=== PATIENT | male | born 1960 | race Caucasian/White ===

== ENCOUNTER 2017-12-27 10:09 | Inpatient (IN) | payer OTHER ==
[~2017-12-27] VITALS: Ht 172.7 cm; Wt 138.5 kg
[~2017-12-27 10:09] MED LIST: ASPIRIN CHILDRE81 MG PO; ASPIRIN EC81 M1 PO; ATORVASTATIN CA40 MG PO; AUGMENTIN 875-1 EACH PO; AUGMENTIN 875875 MG PO; AVAPRO300 M1 PO; GLIPIZIDE10 MG PO; GLIPIZIDE5 M2 PO; HYDROCHLOROTH12.5 M2 PO; HYDRODIURIL 112.5 M1 PO; IRBESARTAN300 MG PO; LEVEMIR FL100 UNIT/1 SC; LEVEMIR FLEX100 U/M1 SC; LEVEMIR100 UNIT/1 SC; LEVOTHYROXINE0.15 M1 PO; LIPITOR40 M1 PO; METFORMIN ER500 MG PO; Mucinex PO; PERCOCET 5-3251 EACH PO; SENOKOT8.6 M2 PO; SYNTHROID150 MCG PO; TYLENOL EXTRA500 M2 PO
--- NOTE | 2017-12-27 10:46 | ED GENERAL ADULT ---
History of Present Illness General Chief Complaint: General Adult Stated Complaint: NV;ABD PAIN Source: patient Exam Limitations: no limitations Vital Signs & Intake/Output Vital Signs & Intake/Output Vital Signs Date Time Temp Pulse Resp B/P B/P Pulse O2 O2 Flow FiO2 Mean Ox Delivery Rate 12/27 1816 98.8 79 18 113/59 98 Room Air 12/27 1724 76 18 90/52 98 Room Air 12/27 1633 99.5 82 18 82/52 97 Room Air Room Air 12/27 1315 98.6 83 18 129/58 98 Room Air 12/27 1044 98.4 78 18 196/88 99 Room Air Allergies Coded Allergies: NO KNOWN ALLERGIES (NONE 12/27/17) Reconcile Medications Aspirin (Ecotrin*) 81 MG TABLET.DR 1 TAB PO DAILY HEART HEALTH (Reported) Atorvastatin Calcium (Lipitor) 40 MG TABLET 1 TAB PO DAILY CHOLESTEROL ( Reported) Glipizide 5 MG TABLET 1 TAB PO BID DIABETES (Reported) Hydrochlorothiazide 12.5 MG TABLET 1 TAB PO DAILY BP (Reported) Insulin Detemir (Levemir) 100 UNIT/ML VIAL 60 UNITS SC DAILY DIABETES ( Reported) Irbesartan (Avapro) 300 MG TABLET 1 TAB PO DAILY BP (Reported) Levothyroxine Sodium (Synthroid) 150 MCG TABLET 1 TAB PO DAILY THYROID ( Reported) Triage Note: C/O UPPER AND MID ABDOMINAL PAIN WITH NAUSEA AND VOMITING SINCE YESTERDAY. DENIES DIARRHEA. Triage Nurses Notes Reviewed? yes Onset: Abrupt Duration: day(s): Timing: recent history HPI: 12/27/17 2:46 PM 67-year-old male presents to the emergency department complaining of epigastric and bilateral upper quadrant abdominal pain. He says that he has a past medical history of hypertension, hyperlipidemia, diabetes, hypothyroidism, status post tonsillectomy. He says the pain started last night. He's had multiple episodes of vomiting. In ED he received IV fluids, IV Zofran, IV morphine for pain is exam revealed epigastric abdominal tenderness. Past History Travel History Traveled to [place] past 21 day No Medical History Any Pertinent Medical History? 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 No Review of Systems Review of Systems Constitutional: Denies: fever. EENTM: Reports: no symptoms. Respiratory: Denies: short of breath. Cardiovascular: Denies: chest pain. GI: Reports: abdominal pain, vomiting. Genitourinary: Reports: no symptoms. Musculoskeletal: Reports: see HPI. Skin: Reports: see HPI. Neurological/Psychological: Reports: no symptoms. Hematologic/Endocrine: Reports: no symptoms. Immunologic/Allergic: Reports: no symptoms. Physical Exam Physical Exam General Appearance: alert, awake, anxious, severe distress Head: atraumatic, normal appearance Eyes: Bilateral: normal appearance, PERRL, EOMI. Ears, Nose, Throat: normal pharynx, normal ENT inspection Neck: normal inspection, supple, full range of motion Respiratory: normal breath sounds, chest non-tender, no respiratory distress Cardiovascular: regular rate/rhythm Peripheral Pulses: 3+ radial (R), 3+ radial (L) Gastrointestinal: soft, tenderness, EPIGASTRIC Back: decreased range of motion Extremities: pedal edema Neurologic/Psych: no motor/sensory deficits, awake, alert, oriented x 3 Skin: diaphoresis Core Measures ACS in differential dx? Yes CVA/TIA Diagnosis: No Sepsis Present: No Sepsis Focused Exam Completed? No Progress Differential Diagnoses I considered the following diagnoses in my evaluation of the patient: Plan of Care: Orders Procedure Date/time Status Nothing by Mouth 12/28 B Active VRE ACTIVE SURVIELLANCE 12/27 181 Active ACTIVE SURVEILLANCE NARES 12/27 181 Active Lab Add-on Test 12/27 175 Active BLOOD CULTURE 12/27 175 Active PARTIAL THROMBOPLASTIN TIME 12/27 175 Active PROTHROMBIN TIME 12/27 175 Active Pathway - chart 12/27 1744 Active House Staff 12/27 1744 Active Patient Data 12/27 1744 Active Code Status 12/27 174 Active Patient Data 12/27 1526 Active GLUCOSE NPO OR CONTINUOUS TF 12/27 1450 Active ED Holding Orders 12/27 1450 Active Admit to inpatient 12/27 1450 Active Vital Signs 12/27 1450 Active Code Status 12/27 1450 Complete Add-on Test (ER Only) 12/27 1448 Active Add-on Test (ER Only) 12/27 1108 Active EKG 12/27 1108 Active Intake & Output 12/27 1059 Active TROPONIN LEVEL 12/27 1052 Active LIPID PANEL 12/27 1052 Active LIPASE 12/27 1052 Active HEPATITIS PANEL 12/27 1052 Active AMYLASE 12/27 1052 Active CULTURE,URINE 12/27 1047 Active URINALYSIS 12/27 1047 Active COMPREHENSIVE METABOLIC PANEL 12/27 1047 Active CBC WITHOUT DIFFERENTIAL 12/27 1047 Complete VTE Mechanical Prophylaxis 12/27 UNK Active Vital Signs 12/27 UNK Active MISTAKE 12/27 UNK Active Intake & Output 12/27 UNK Active Hemoccult 12/27 UNK Active Current Medications Sig/Callie Start time Last Medication Dose Stop Time Status Admin Non-Formulary 0 SEE ADMIN CRITERIA 12/27 1800 UNVr Medication (NON FORMULARY) Hydromorphone HCl 0.4 MG Q4P PRN 12/27 1745 AC (Dilaudid) Lactated Ringer's 1,000 ML .Q4H 12/27 1700 AC 12/27 (Lactated Ringers) 1659 Non-Formulary 0 SEE ADMIN CRITERIA 12/27 1615 CAN Medication (NON FORMULARY) Laboratory Tests 12/27/17 1052: Anion Gap 13, Estimated GFR 39 L, BUN/Creatinine Ratio 22.2, Glucose 230 H, Calcium 9.1, Total Bilirubin 4.2 H, AST 136 H, ALT 215 H, Alkaline Phosphatase 334 H, Troponin I < 0.01, Total Protein 7.3, Albumin 3.8, Globulin 3.5, Albumin/Globulin Ratio 1.1, Triglycerides 103, Cholesterol 118, LDL Cholesterol, Calc 68, HDL Cholesterol 30 L, Cholesterol/HDL Ratio 4, Amylase 2093 H, Lipase > 35812 H, CBC w Diff NO MAN DIFF REQ, RBC 5.08, MCV 82.9, MCH 28.2, MCHC 34.1, RDW 14.5, MPV 8.0, Gran % 87.8 H, Lymphocytes % 7.3 L, Monocytes % 4.8, Eosinophils % 0, Basophils % 0.1, Absolute Granulocytes 8.1 H, Absolute Lymphocytes 0.7 L, Absolute Monocytes 0.4, Absolute Eosinophils 0, Absolute Basophils 0, Hepatitis A IgM Ab Pending, Hep Bs Antigen Pending, Hep B Core IgM Ab Conf Pending, Hepatitis C Antibody Pending Microbiology 12/27 181 UPPER RESP: Surveillance Culture - ORD 12/27 1813 GI: Surveillance Culture - ORD 12/27 175 BLOOD: Blood Culture - COLB 12/27 175 BLOOD: Blood Culture - COLB 12/27 1047 URINE ROUT: Urine Culture - ORD Initial ED EKG: nonspecific ST T wave chg, sinus tachycardia Departure Departure Disposition: STILL A PATIENT Condition: Stable Clinical Impression Primary Impression: Pancreatitis Secondary Impressions: CHARLENE (acute kidney injury) Referrals: Didier MUÑOZ,Ernie Ch (PCP/Family) Departure Forms: Customer Survey General Discharge Information Admission Note Spoke With: Justine Devine MD Documentation of Exam: Documentation of any treatments & extenuating circumstances including Concerns Regarding Discharge (functional status, medication knowledge or non-compliance, living conditions, etc.) that warrant an admission rather than observation: [The patient needs admission for IV fluids, IV antiemetics, IV narcotics for pain control, consider endocrinology consultation, consider GI consultation, GI consult] PATIENT: MONIQUE LAWRENCE JR PRESENT AGE: 57 PATIENT ACCOUNT NO: [id number] : 62 LOCATION: [facility] ORDERING PHYSICIAN: Emmanuel Whitfield DO SERVICE DATE: 12/27/17 EXAM TYPE: CAT - CT ABD & PELVIS W/O IV CONTRAS EXAMINATION: CT ABDOMEN AND PELVIS WITHOUT CONTRAST CLINICAL INFORMATION: Abdominal pain. Rule out ureterolithiasis. COMPARISON: Ultrasound dated 11/10/2015 TECHNIQUE: Multidetector volumetric imaging was performed from the superior aspect of the liver through the pubic symphysis. Sagittal and coronal reformatted images were obtained on the technologist's workstation. DLP: 1547 mGy-cm FINDINGS: LUNG BASES: Dependent atelectasis is present in both lungs. Trace pericardial fluid. Heart is normal in size. LIVER, GALLBLADDER, AND BILIARY TREE: The liver is normal in size, shape, and attenuation. No focal hepatic lesion or biliary ductal dilatation is present. Dependent gallstones in the gallbladder measure 1 and. The gallbladder is borderline hydropic (4.5 cm). Bladder wall is normal in thickness. No surrounding fat stranding. Common bile duct measures 1 cm in diameter, mildly dilated. PANCREAS: Mild fatty replacement. No inflammatory changes or ductal dilatation. No focal lesions. SPLEEN: Unremarkable. ADRENAL GLANDS: Unremarkable. KIDNEYS AND URETERS: There is bilateral perinephric stranding. There is a hypoattenuating 3.3 cm lesion at the lower pole left kidney which has a density of 11 Hounsfield units, most compatible with a simple cyst. This is incompletely evaluated without contrast. No additional renal lesions are identified. Kidneys are normal in size and cortical thickness. No nephrolithiasis or ureterolithiasis. No hydronephrosis or hydroureter. BLADDER: Full and unremarkable. GASTROINTESTINAL TRACT: Stomach, small bowel, and colon are normal in caliber. No bowel wall thickening or surrounding inflammatory changes. Appendix is normal. No intraperitoneal free fluid or free air. ABDOMINAL WALL: Small fat-containing umbilical hernia. No bowel involvement. LYMPH NODES: There is a borderline enlarged 1.1 cm portacaval node (image 37/115 of series 2). A few smaller, borderline enlarged periportal nodules are identified in this region. Other retroperitoneal lymph nodes below the pelvic lymph nodes are normal in size. VASCULAR: Calcific atherosclerosis is present in the abdominal aorta and iliac arteries. PELVIC VISCERA: Prostate gland is unremarkable OSSEOUS STRUCTURES: A hemangioma is present within the T12 vertebral body. There is mild degenerative disc disease in the thoracic spine. Mild degenerative arthritis is present in the SI joints and hip joints. No acute fractures are identified. IMPRESSION: 1. Cholelithiasis. No CT findings of acute cholecystitis. 2. Bilateral perinephric stranding. No nephrolithiasis, ureterolithiasis, or other findings of obstructive uropathy. 3. A few borderline enlarged periportal lymph nodes. 4. A 3.3 cm water density cystic lesion at the lower pole left kidney. This is incompletely evaluated without intravenous contrast material. It was not seen on prior ultrasound. Consider follow-up renal protocol CT with and without contrast or MRI with and without contrast for further evaluation. 5. Fat-containing umbilical hernia. DICTATED BY: Olegario Kennedy MD DATE/TIME DICTATED:12/27/171513 SCRIPT GIRL:RENNY DATE/TIME TRANSCRIBED:12/27/171513 CONFIDENTIAL, DO NOT COPY WITHOUT APPROPRIATE AUTHORIZATION. <Electronically signed in Other Vendor System> SIGNED BY: Brent MUÑOZ,Olegario 12/27/17 1532 Critical Care Note Critical Care Note Critical Care Time: 30-74 min
[2017-12-27 11:04] LABS: ABSOLUTE BASOPHIL COUNT 0 /CUMM (0.0-0.2); ABSOLUTE EOSINOPHIL COUNT 0 /CUMM (0.0-0.7); ABSOLUTE GRANULOCYTE CT 8.1 /CUMM (1.4-6.5); ABSOLUTE LYMPH COUNT 0.7 /CUMM (1.2-3.4); ABSOLUTE MONOCYTE COUNT 0.4 /CUMM (0.10-0.60); BASOPHIL % 0.1 % (0.0-2.0); EOSINOPHIL % 0 % (0-5); HEMATOCRIT 42.1 % (42-52); MEAN CORPUSCULAR HGB 28.2 PG (27.0-31.0); MEAN CORPUSCULAR HGB CONC 34.1 G/DL (33.0-37.0); MEAN CORPUSCULAR VOLUME 82.9 FL (80.0-94.0); PLATELET COUNT 241 /CUMM (130-400); RBC DISTRIBUTION WIDTH 14.5 % (11.5-14.5); RED BLOOD CELL CT 5.08 /CUMM (4.70-6.10); WHITE BLOOD CELL COUNT 9.3 /CUMM (4.8-10.8)
[2017-12-27 11:27] LABS: GRANULOCYTE % 87.8 % (42.2-75.2)
[2017-12-27] MEDS ORDERED: LEVEMIR100 UNIT/1 SC (13:14)
--- NOTE | 2017-12-27 15:32 | CT SCAN REPORT ---
EXAMINATION: CT ABDOMEN AND PELVIS WITHOUT CONTRAST CLINICAL INFORMATION: Abdominal pain. Rule out ureterolithiasis. COMPARISON: Ultrasound dated 11/10/2015 TECHNIQUE: Multidetector volumetric imaging was performed from the superior aspect of the liver through the pubic symphysis. Sagittal and coronal reformatted images were obtained on the technologist's workstation. DLP: 1547 mGy-cm FINDINGS: LUNG BASES: Dependent atelectasis is present in both lungs. Trace pericardial fluid. Heart is normal in size. LIVER, GALLBLADDER, AND BILIARY TREE: The liver is normal in size, shape, and attenuation. No focal hepatic lesion or biliary ductal dilatation is present. Dependent gallstones in the gallbladder measure 1 and. The gallbladder is borderline hydropic (4.5 cm). Bladder wall is normal in thickness. No surrounding fat stranding. Common bile duct measures 1 cm in diameter, mildly dilated. PANCREAS: Mild fatty replacement. No inflammatory changes or ductal dilatation. No focal lesions. SPLEEN: Unremarkable. ADRENAL GLANDS: Unremarkable. KIDNEYS AND URETERS: There is bilateral perinephric stranding. There is a hypoattenuating 3.3 cm lesion at the lower pole left kidney which has a density of 11 Hounsfield units, most compatible with a simple cyst. This is incompletely evaluated without contrast. No additional renal lesions are identified. Kidneys are normal in size and cortical thickness. No nephrolithiasis or ureterolithiasis. No hydronephrosis or hydroureter. BLADDER: Full and unremarkable. GASTROINTESTINAL TRACT: Stomach, small bowel, and colon are normal in caliber. No bowel wall thickening or surrounding inflammatory changes. Appendix is normal. No intraperitoneal free fluid or free air. ABDOMINAL WALL: Small fat-containing umbilical hernia. No bowel involvement. LYMPH NODES: There is a borderline enlarged 1.1 cm portacaval node (image 37/115 of series 2). A few smaller, borderline enlarged periportal nodules are identified in this region. Other retroperitoneal lymph nodes below the pelvic lymph nodes are normal in size. VASCULAR: Calcific atherosclerosis is present in the abdominal aorta and iliac arteries. PELVIC VISCERA: Prostate gland is unremarkable OSSEOUS STRUCTURES: A hemangioma is present within the T12 vertebral body. There is mild degenerative disc disease in the thoracic spine. Mild degenerative arthritis is present in the SI joints and hip joints. No acute fractures are identified. IMPRESSION: 1. Cholelithiasis. No CT findings of acute cholecystitis. 2. Bilateral perinephric stranding. No nephrolithiasis, ureterolithiasis, or other findings of obstructive uropathy. 3. A few borderline enlarged periportal lymph nodes. 4. A 3.3 cm water density cystic lesion at the lower pole left kidney. This is incompletely evaluated without intravenous contrast material. It was not seen on prior ultrasound. Consider follow-up renal protocol CT with and without contrast or MRI with and without contrast for further evaluation. 5. Fat-containing umbilical hernia.
--- NOTE | 2017-12-27 15:48 | History & Physical ---
Delphine Johnson MD 12/27/17 1548: General Information and HPI MD Statement: I have seen and personally examined MONIQUE LAWRENCE JR and documented this H &P. The patient is a 57 year old M who presented with a patient stated chief complaint of nausea, vomiting, abdominal pain, jaundice, generalized rash Source of Information: patient, family Exam Limitations: no limitations History of Present Illness: This is a 57 year old male with a PMH significant for hypertension, hypothyroidism, HLD, diabetes, GERD, that presents to us with complaints of a one and a half day history of abdominal pain, nausea and vomiting, jaundice, generalized urticaria, malaise. The patient states that he has never had any symptoms like this before and cannot recall doing anything that may have brought this on. He denies any new foods, ingesting any substances, alcohol, drug use recently. The patient notes that the abdominal pain is in a bandlike lesion across his mid abdomen, worse rated a 10 out of 10, with a sharp and burning quality. He states that the pain is worse on deep inspiration but is not worse on movement. The patient also complains of some new central back pain, not worse on movement. The patient states that his generalized urticaria started about 1-1/2 days ago as well. He denies any new detergents, no new animal exposure, recent travel, sick contacts, chronic opiate use. He had a similar episode about 6 months ago. The urticaria is so bad that the patient has been scratching himself while he sleeps leaving scattered excoriations. He attributes the urticaria distress. The patient's also noticed that he had jaundiced skin after they arrived at the ED. The patient denies any change in color of bowel movements or urine. He states that he has not been urinating much "because I have not drink very much". The patient has been vomiting as well, denies any blood in the vomitus, states that it is mostly clear as he has not eating due to having no appetite. The last thing that the patient attempted to eat with the banana last night which she promptly vomited. The patient finally states that he has had some diarrhea but states that this is "on and off" for some time, due to Trulicity (the although he stopped that 5 weeks ago). The patient has diabetes and this medication was started but stopped secondary to his diarrhea. The patient has no psychiatric history, has never had a colonoscopy. The last time the patient went to his PCP was 3 months ago, PCP is Dr. Velásquez and his admin asst is Dr. Cardona. The patient denies any drug use or smoking past or present. He admits to very rare alcohol use. Patient has no drug or food allergies. Allergies/Medications Allergies: Coded Allergies: NO KNOWN ALLERGIES (NONE 12/27/17) Home Med list Aspirin (Ecotrin*) 81 MG TABLET.DR 1 TAB PO DAILY HEART HEALTH (Reported) Atorvastatin Calcium (Lipitor) 40 MG TABLET 1 TAB PO DAILY CHOLESTEROL ( Reported) Glipizide 5 MG TABLET 1 TAB PO BID DIABETES (Reported) Hydrochlorothiazide 12.5 MG TABLET 1 TAB PO DAILY BP (Reported) Insulin Detemir (Levemir) 100 UNIT/ML VIAL 60 UNITS SC DAILY DIABETES ( Reported) Irbesartan (Avapro) 300 MG TABLET 1 TAB PO DAILY BP (Reported) Levothyroxine Sodium (Synthroid) 150 MCG TABLET 1 TAB PO DAILY THYROID ( Reported) Compliance With Home Meds: GOOD Past History Travel History Traveled to [place] past 21 day No Medical History Neurological: NONE EENT: NONE Cardiovascular: hypertension, hyperlipidemia, HLD Respiratory: NONE Gastrointestinal: NONE Hepatic: NONE Renal: NONE Musculoskeletal: NONE Psychiatric: NONE Endocrine: diabetes, hypothyroidism, DM HYPOTHYROID Blood Disorders: NONE Cancer(s): NONE 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 spouse, child Services at Home: Nursing Primary Language: Lebanese ETOH Use: denies use Functional Ability ADLs Independent: dressing, eating, toileting, bathing. Ambulation: independent IADLs Independent: shopping, housework, finances, food prep, telephone, transportation , medication admin. Review of Systems Review of Systems Constitutional: Reports: malaise. EENTM: Reports: icterus. Cardiovascular: Reports: no symptoms. Respiratory: Reports: no symptoms. GI: Reports: abdominal pain, diarrhea, nausea, vomiting. Genitourinary: Reports: see HPI. Musculoskeletal: Reports: back pain. Skin: Reports: jaundice. Neurological/Psychological: Reports: no symptoms. Hematologic/Endocrine: Reports: no symptoms. Immunologic/Allergic: Reports: no symptoms. Exam & Diagnostic Data Last 24 Hrs of Vital Signs/I&O Vital Signs Date Time Temp Pulse Resp B/P B/P Pulse O2 O2 Flow FiO2 Mean Ox Delivery Rate 12/27 1724 76 18 90/52 98 Room Air 12/27 1633 99.5 82 18 82/52 97 Room Air Room Air 12/27 1315 98.6 83 18 129/58 98 Room Air 12/27 1044 98.4 78 18 196/88 99 Room Air Intake & Output 12/27 1600 12/27 0800 12/27 0000 Intake Total 1000 Output Total Balance 1000 Intake, IV 1000 Patient 280 lb Weight Weight Reported by Patient Measurement Method Physical Exam General Appearance Alert, Oriented X3, Cooperative, Mild Distress Skin jaundiced skin with scattered excoriations Skin Temp/Moisture Exam: Warm/Dry Sepsis Skin Exam (color): Normal for Ethnicity HEENT Atraumatic, PERRLA, EOMI, Mucous Membr. moist/pink, icterus Neck Supple, No JVD Cardiovascular Regular Rate, Normal S1, Normal S2, No Murmurs Lungs Clear to Auscultation, Normal Air Movement Abdomen Normal Bowel Sounds, Soft, No Hepatospenomegaly, No Masses, tenderness on palpation central abdomen Neurological Normal Speech Extremities No Clubbing, No Cyanosis, No Edema, Normal Pulses Vascular Normal Pulses, Pulses Symmetrical Last 24 Hrs of Labs/Zurdo: Laboratory Tests 12/27/17 1052: Anion Gap 13, Estimated GFR 39 L, BUN/Creatinine Ratio 22.2, Glucose 230 H, Calcium 9.1, Total Bilirubin 4.2 H, AST 136 H, ALT 215 H, Alkaline Phosphatase 334 H, Troponin I < 0.01, Total Protein 7.3, Albumin 3.8, Globulin 3.5, Albumin/Globulin Ratio 1.1, Triglycerides 103, Cholesterol 118, LDL Cholesterol, Calc 68, HDL Cholesterol 30 L, Cholesterol/HDL Ratio 4, Amylase 2093 H, Lipase > 38010 H, CBC w Diff NO MAN DIFF REQ, RBC 5.08, MCV 82.9, MCH 28.2, MCHC 34.1, RDW 14.5, MPV 8.0, Gran % 87.8 H, Lymphocytes % 7.3 L, Monocytes % 4.8, Eosinophils % 0, Basophils % 0.1, Absolute Granulocytes 8.1 H, Absolute Lymphocytes 0.7 L, Absolute Monocytes 0.4, Absolute Eosinophils 0, Absolute Basophils 0 Microbiology 12/27 1047 URINE ROUT: Urine Culture - ORD Assessment/Plan Assessment: This is a 57 year old male with a PMH significant for hypertension, hypothyroidism, HLD, diabetes, GERD, that presents to us with complaints of a one and a half day history of abdominal pain, nausea and vomiting, jaundice, generalized urticaria, malaise. He denies a history of alcohol use, no recent ingestions, no history of similar symptoms, no knowledge of any gallstones and no history of colicky type pain. Patient has no history of IV drug use, no blood transfusions in the past, no recent travel. Patient does have a history of hyperlipidemia on statins. Patient is not on any type of calcium supplements. No family history of any liver issues, gallbladder disease, hypertriglyceridemia, issues with calcium. In the ED, the patient was started on fluids, normal saline, he was given 2 doses of 4 mg of morphine and 1 dose of Toradol 30 mg which he stated helped the most. He was also given 1 dose of Zofran. EKG showed a rate of 101 normal sinus rhythm with QTC 452 and Q waves in lead 3. Vitals in the ED were blood pressure of 196/88 at 10:30 AM with a drop to 82/52 at 4:00 PM. Labs showed a normal WBC count, normal hemoglobin and hematocrit, normal BEP except for creatinine of 1.8 that has been elevated since October 2015 and is normal for him as per [facility] records. His LFTs showed bilirubin of 4.2, ALP of 215, AST 136, alkaline phosphatase 334, amylase over 2000, lipase over 10,000. Lipid panel was normal and calcium was 9.1. CT scan showed no evidence of pancreatitis, no dilated bile ducts, he did have evidence of cholelithiasis, no evidence cholecystitis. Patient does not meet SIRS criteria as he is afebrile, not tachycardic, not tachypneic, with a normal WBC count. He did have a drop in systolic blood pressure that was previously substantial and a suspected source of infection but this does not meet criteria for SIRS or sepsis. Of note, this may be a very acute episode which will be reflected soon in labs including WBC count. Plan We will admit the patient to the ICU and has had quite a decrease in blood pressure that may potentially require pressors. We have consulted Jewelry Polisher Dr. Bojorquez believes that this may be an episode of cholangitis with gallstone pancreatitis. Patient will likely need ERCP for diagnosis and treatment in the morning. -Start the patient on broad spectrum antibiotic Zosyn -Hold the patient nothing by mouth -Continue lactated Ringer's at 250 mL per hour. -Check lactic acid level -Check coags, hepatitis panel -Blood cultures 2 -Pain pathway -Zofran as needed -Follow up CBC and BEP Patient is full code DVT prophylaxis with heparin and Alps Patient is nothing by mouth As Ranked By This Provider Problem List: 1. Pancreatitis 2. CKD (chronic kidney disease) Core Measures/Misc (05/01) Acute Coronary Syndrome ACS Diagnosis: No Congestive Heart Failure Congestive Heart Failure Diagnosis No Cerebrovascular Accident CVA/TIA Diagnosis: No VTE (View Protocol) VTE Risk Factors Acute Medical Illness No Mechanical VTE Prophylaxis d/t N/A MechProphylax Ordered No VTE Pharm Prophylaxis d/t NA PharmProphylax ordered Sepsis (View protocol) Sepsis Present: No NehakathyMark 12/27/17 1606: Resident Review Statement Resident Statement: examined this patient, discussed with consumer insights intern, discussed with family Other Findings: This is 57 YO M w/PMH significant for DM, hyperlipidemia, GERD, hypertenstion, hypothyroidism, diabetes who presented to the hospital with nausea, vomiting, sharp epigastric abdominal pain for 2 days. He also reports having generalized pruritus for the past few weeks.He attributed the pruritis to trulicity that was started recently for him and stopped the medication. Has been having low appetite for the past few days and not able to tolerate any PO. His mentions that he looks jaundiced compared to his usual. Please see above for more detail. Ph/ex: NAD, AAOx3 HEENT: HNCAT, PERRLA, EOMI Neck: Supple, no JVD, no carotid bruits. CV: RRR, no murmur Lungs: CTABL Abdomne; Distended, epigastric tenderness, no rebound Extremities: No LE edema Skin: sclera mildly icteric, skin jaundiced, excoriations and scratch goodson on UE and LEs. He was noted to have elevated LFTs, amylase, lipase. CT abd/pelvis w/o contrast reveals cholelithiasis w/o cholecysititis no significant biliary pathology. While in the ED his blood pressure dropped from 190s sys to 80s sys; improved after IV NS bolus. Case was discussed with GI attending Dr. Bojorquez. Assessment: #Acute cholangitis #Gallstone pancreatitis #Elevated Cr(baseline) Plan: * Monitor in the ICU * BCx2 * Broad spectrum ABs(GI suggested Zosyn) * Started RL at 250 cc/hr * Follow GI recs; may benefit from ERCP * Check hepatitis panel, coags, lactic acid * Repeat labs including LFTs, CBC tomorrow * Maintain the patient NPO, advance diet as per GI * Will resume levemir at lower dose of 25 bid * Accuchecks and INS SS * Pain Mx with IV dilaudid 0.4 q4 PRN * DVT PPX: SC heparin * Pt is full code Nilson MUÑOZ,[facility] 12/27/171946: Attending MD Review Statement Attending Statement Attending MD Statement: examined this patient, discuss w/resident/PA/VOCATIONAL CHILDCARE TEACHER, agreed w/resident/PA/VOCATIONAL CHILDCARE TEACHER Attending Assessment/Plan: 57M PMH HTN, HLD, T2DM, GERD presenting with 1 day of epigastric pain with a week of questionable jaundice and pruritis, found to have elevated lipase and LFTs. Afebrile, currently comfortable and without pain, BP normal initially then dropped to 90/50, after which he received IV bolus and his BP improved. CT shows bilateral perinephric stranding and no biliary pathology. 1. Acute cholangitis 2. Gallstone pancreatitis Plan - Admit to ICU - Start Meropenem - Blood cultures - GI consult for ERCP - Trend LFTs - IV hydration - NPO -Pain control - DVT PPx
[2017-12-27 19:26] LABS: PT 14.1 SEC (9.4-12.5); PTT 29 SEC (25-37)
[2017-12-27 19:30] VITALS: BP 136/58
[2017-12-28] VITALS: BP 114/58
[2017-12-28 04:42] LABS: ABSOLUTE BASOPHIL COUNT 0 /CUMM (0.0-0.2); ABSOLUTE EOSINOPHIL COUNT 0 /CUMM (0.0-0.7); ABSOLUTE GRANULOCYTE CT 13.6 /CUMM (1.4-6.5); ABSOLUTE LYMPH COUNT 0.4 /CUMM (1.2-3.4); BASOPHIL % 0 % (0.0-2.0); EOSINOPHIL % 0.1 % (0-5); GRANULOCYTE % 90.2 % (42.2-75.2); MEAN CORPUSCULAR HGB 28.5 PG (27.0-31.0); MEAN CORPUSCULAR HGB CONC 33.3 G/DL (33.0-37.0); MEAN CORPUSCULAR VOLUME 85.5 FL (80.0-94.0); MEAN PLATELET VOLUME 8.2 FL (7.4-10.4); PLATELET COUNT 181 /CUMM (130-400); RBC DISTRIBUTION WIDTH 15.1 % (11.5-14.5); RED BLOOD CELL CT 3.91 /CUMM (4.70-6.10)
[2017-12-28 04:50] LABS: HEMATOCRIT 33.5 % (42-52); WHITE BLOOD CELL COUNT 15.1 /CUMM (4.8-10.8)
[2017-12-28 07:38] VITALS: BP 130/60
--- NOTE | 2017-12-28 07:43 | Cons- Gastroenterology ---
See Addendum General Information and HPI Consulting Request Date of Consult: 12/28/17 Requested By: Justine Devine MD Reason for Consult: I was notified by Dr. Bojorquez within the past hour of a request by the ICU to assess pancreatitis & possible cholangitis. Source of Information: patient, family (pt's , Anne-Marie), old records Exam Limitations: no limitations History of Present Illness: 58 y/o male, HTN (concn LVH), HLD, DM with neuropathy & CKD, obesity, past hx chronic left heel ulcer requiring I & D, f/b split-thickness skin graft 12/2015, hypoT4, GERD, who presented to the [facility] ER 12/27/17 at 10:09 a.m. with 2 days of nausea, vomiting, & sharp epigastric pain for 2 days [employer]. He also had decreased po intake during this time, and his thought he looked yellow. Upon arrival, BP 196/88, P 78, RR 18, T 98.4, O2 sat RA 99%. The patient then became hypotensive that afternoon, with BP 82/52, which improved after IV fluids. He did not spike any fevers in the ER. He was given IV NS, Zofran, MS, & Toradol in the ER. The vomitus showed clear emesis & bile. There was no hematemesis, melena, or BRBPR. He was initially going to be admitted to general medicine, then was upgraded to the ICU for closer monitoring. No CXR was done on admission. The patient was cultured & started on Zosyn, as per the ICU team. His elevated bilirubin has persisted, but his other LFTs have slightly improved. He was not on any outpatient NSAIDs, significant Tylenol, or herbal medications. Regarding his outpt meds, Atorvastatin, HCTZ, & Trulicity can cause pancreatitis (the latter, which was his newest med, was self-D/C'd 1 week [employer]). Glipizide can cause cholestasis & hepatitis. Avapro can cause hepatitis. He was a nonsmoker. He denied any EtOH or illicit drug use. He had no previous blood transfusions, tattoos. or IVDA. He denied any previous history of viral hepatitis. He denied any symptoms of UTI or URI. He noted dark urine for the past couple of days. He denied any light stools. He noted a mild pruritic rash, which he was scratching. At present, the patient's abdominal pain was minimal. His nausea and vomiting was improved. He denied any fevers, chills, or confusion. His hypotension had resolved. He denied any CP or SOB. He had no diarrhea, constipation, obstipation, or tenesmus. He denied any early satiety. Of note, the patient had never had a baseline screening colonoscopy or EGD (mild GERD). There is no family history of GI CA, GI disease, or inherited liver disease. Patient's mother at 70 from lymphoma, and his father at 57 from melanoma. 12/27/17: 1052: Admission labs-WBC 9.3 (88% gram/8 gran Ab), H/H 14.3/42.1, MCV 82.9, RDW 14.5, PLT 241, glu 230, BUN/Cr 40/1.8, GFR 39, Na 142, K 4.6, HCO3 24, QAG 13, amylase 2093, lipase > 10K, Ca 9.1, albumin 3.8, globulin 3.5, TBil 4.2 (w/o fracs), alk phos 334, AST 136, ALT 215, TChol 118, TG 103, HDL 30, LDL 68, LDH 581, troponin < 0.01 12/27/17: *Hep A Ab, Hep Bs Ag, Hep B core Ab, Hep C Ab- *all negative. 12/27/17: U/A- hazy, yellow, 1.020, 6.0, 3-5 RBC, 3-5 WBC, few granular cast, mod Hgb, sm bili, 0.2 urobil, 100+ prot, neg ketone; neg nitrite, neg esterase *Upon admission, 2 Grave signs by Erasto criteria (glucose, LDH) & 2 Grave signs by BiSAP criteria (elevated BUN & SIRS), but no CXR was done to r/o pleural effusion (none seen on CT AP). CT AP was obtained, but was somewhat limited w/o IV contrast, in view of CKD. 12/27/17: UC- pending. 12/27/17: BC X 2- pending. 12/27/17: EKG- ST @ 101, nl axis, nl intervals, PRWP across the precordium, mini q I & L, NSST inf. 12/27/17: CT ABDOMEN AND PELVIS WITHOUT IV CONTRAST (*CKD)- IMPRESSION: 1. Cholelithiasis. No CT findings of acute cholecystitis. Mildly dilated CBD 1 cm. Normal liver. 2. Bilateral perinephric stranding. No nephrolithiasis, ureterolithiasis, or other findings of obstructive uropathy. 3. Few borderline enlarged periportal lymph nodes. 4. 3.3 cm water density cystic lesion at the lower pole left kidney. This is incompletely evaluated without intravenous contrast material. It was not seen on prior ultrasound. Consider follow-up renal protocol CT with and without contrast or MRI with and without contrast for further evaluation. 5. Fat-containing umbilical hernia. Normal AP & bowel. 6. ASHD of abdominal aorta & iliac arteries, No AAA. 7. T12 hemangioma. Mild DJD. 12/27/17: lactate 2.4-> 1.6 12/27/17: PT 14.1, INR 1.29, PTT 29 12/28/17: 0425: WBC 15.1 (77S/6B/5L/10M/2Meta), H/H 11.1/33.5, MCV 85.5, RDW 15.1, PLT 181, BUN/Cr 43/2.5, GFR 27, Na 142, K 5.2, HCO3 24, AG 10, amyalse 1030, lipase 6978, albumin 2.8, globulin 3.0, TBil 4.2, DBil 3.4, alk phos 238, AST 94, ALT 159 Allergies/Medications Allergies: Coded Allergies: NO KNOWN ALLERGIES (NONE 12/27/17) Home Med List: Aspirin (Ecotrin*) 81 MG TABLET.DR 1 TAB PO DAILY HEART HEALTH (Reported) Atorvastatin Calcium (Lipitor) 40 MG TABLET 1 TAB PO DAILY CHOLESTEROL ( Reported) Glipizide 5 MG TABLET 1 TAB PO BID DIABETES (Reported) Hydrochlorothiazide 12.5 MG TABLET 1 TAB PO DAILY BP (Reported) Insulin Detemir (Levemir) 100 UNIT/ML VIAL 60 UNITS SC DAILY DIABETES ( Reported) Irbesartan (Avapro) 300 MG TABLET 1 TAB PO DAILY BP (Reported) Levothyroxine Sodium (Synthroid) 150 MCG TABLET 1 TAB PO DAILY THYROID ( Reported) Current Medications: Current Medications Sig/Callie Start time Last Medication Dose Route Stop Time Status Admin Dextrose/Lactated 1,000 ML Q13H 12/28 1045 12/28 Ringer's IV 1041 Heparin Sodium 5,000 UNIT Q8 12/27 2210 12/28 (Porcine) SC 0554 Hydromorphone HCl 0.4 MG Q4P PRN 12/27 1745 IV Insulin Detemir 20 UNITS DAILY 12/29 0900 AC SC Insulin Detemir 25 UNITS BID 12/27 2100 IA 12/28 SC 0914 Insulin Human Regular 4 UNITS .STK-MED ONE 12/28 0005 DC IV 12/28 0006 Insulin Human Regular 0 Q6 12/27 1850 12/28 SC 0600 Ketorolac 30 MG ONCE ONE 12/27 1430 DC 12/27 Tromethamine IV 12/27 1431 1340 Ketorolac 0 .STK-MED ONE 12/27 1327 DC Tromethamine .ROUTE Lactated Ringer's 1,000 ML .Q4H 12/27 1700 IA 12/28 IV 0651 Non-Formulary 0 SEE ADMIN CRITERIA 12/27 1800 CAN Medication ANY Non-Formulary 0 SEE ADMIN CRITERIA 12/27 1615 CAN Medication ANY Pantoprazole Sodium 40 MG DAILY 12/28 1035 12/28 IV 12/30 0901 1041 Phytonadione 10 MG ONCE ONE 12/28 0930 IA 12/28 SC 12/28 0931 0943 Piperacillin Sod/ 4.5 GM Q6H 12/27 1845 12/28 Tazobactam Sod IV 0554 Sodium Chloride 100 ML Sodium Chloride 500 ML BOLUS ONE 12/27 1715 DC 12/27 IV 12/27 1814 1724 Sodium Chloride 500 ML BOLUS ONE 12/27 1700 DC 12/27 IV 12/27 1759 1659 Past History Travel History Traveled to [place] past 21 day No Medical History Blood Transfusion Hx: No Neurological: peripheral neuropathy (DM) EENT: NONE Cardiovascular: hypertension, hyperlipidemia Respiratory: NONE Gastrointestinal: NONE Hepatic: NONE Renal: chronic kidney disease (DM) Musculoskeletal: chronic left heel ulcer Psychiatric: NONE Endocrine: diabetes, hypothyroidism, obesity Blood Disorders: NONE Cancer(s): NONE YIELD ANALYST/Reproductive: NONE Surgical History Surgical History: 2016: I&D left heel, f/b skin graft Family History Relations & Conditions If Any: MOTHER, , Age 70; Cause: Lymphoma. FHx: myocardial infarction FATHER, , Age 57; Cause: Melanoma. FHx: myocardial infarction paternal grand parents FH: diabetes mellitus SISTER ([employer]). Age 54. Psychosocial History Where Do You Live? Home Who Do You Live With? spouse (Anne-Marie), child Services at Home: None Primary Language: Congolese Smoking Status: Never Smoked ETOH Use: denies use Illicit Drug Use: denies illicit drug use Living Will? no Power of Hopper Filler/HCP? no Other Social History: to Anne-Marie. 2 kids (1 son & 1 dtr)- [employer]. No cigarettes, EtOH, or illicit drugs. 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 Functional Ability ADLs Independent: dressing, eating, toileting, bathing. Ambulation: independent IADLs Independent: shopping, housework, finances, food prep, telephone, transportation , medication admin. 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 Review of Systems Constitutional: Denies: chills, diaphoresis, fever, malaise, weakness, unexplained weight loss. EENTM: Reports: icterus. Denies: blurred vision, double vision, visual changes, eye pain, eye drainage, eye tearing, ear discharge, ear pain, ear redness, hearing changes, nasal congestion, epistaxis, nasal pain, throat pain, throat swelling, mouth pain, tooth pain. Cardiovascular: Denies: chest pain, edema, orthopena, palpitations, peripheral edema, syncope. Respiratory: Denies: cough, hemoptysis, orthopnea, short of breath, sputum production, stridor, wheezing. GI: Reports: abdominal pain, nausea, vomiting. Denies: bloating, constipation, diarrhea, distention, bowel incontinence, melena, bloody stool, changes in stool , steatorrhea. Genitourinary: Denies: discharge, dysuria, frequency, hematuria, hesitation, nocturia, pain, urgency. Musculoskeletal: Denies: back pain, gout, joint pain, joint swelling, muscle pain, muscle stiffness, neck pain. Skin: Reports: jaundice, rash (pruritic). Denies: cysts, change in skin color, change in hair/nails, dryness, erythema, lesions, lymphangitis, lumps, moles. Neurological/Psychological: Reports: numbness. Denies: anxiety, ataxia, cognitive dysfunction, confusion, depressed, dementia, emotional problems, headache, paresthesia (hx peripheral neuropathy), pre-existing deficit, petit mal seizures, tingling, tremors, tonic- clonic seizures, unable to move lower ext, unable to move upper ext, weakness. Hematologic/Endocrine: Denies: bruising, bleeding, polyuria, polydipsia. Immunologic/Allergic: Denies: splenectomy, HIV/AIDS, lymphadenopathy. All Other Systems: Reviewed and Negative Exam & Diagnostic Data Vital Signs and I&O Vital Signs Date Time Temp Pulse Resp B/P B/P Pulse O2 O2 Flow FiO2 Mean Ox Delivery Rate 12/28 0738 97.7 66 18 130/60 98 Room Air 12/28 0000 98.1 70 18 114/58 97 Room Air 12/27 1930 98.6 84 16 136/58 98 Room Air 12/27 1816 98.8 79 18 113/59 98 Room Air 12/27 1724 76 18 90/52 98 Room Air 12/27 1633 99.5 82 18 82/52 97 Room Air Room Air 12/27 1315 98.6 83 18 129/58 98 Room Air 12/27 1044 98.4 78 18 196/88 99 Room Air Intake & Output 12/28 1600 12/28 0400 12/27 1600 12/27 0400 12/26 1600 12/26 0400 Intake Total 5989 198 4120 Output Total 500 600 Balance 3975 216 9005 Intake, IV 0991 163 0461 Output, Urine 500 600 Patient 277 lb 280 lb Weight Weight Reported by Patient Reported by Patient Measurement Method Physical Exam: Well-developed, well-nourished, morbidly obese male, in no apparent distress. Sclera icteric. Conjunctiva pink. Oropharynx clear. No oral thrush. No aphthous ulcers. Slightly dry mucous membranes. There is no adenopathy, thyromegaly, or JVD. No peripheral stigmata of inflammatory bowel disease or chronic liver disease on exam. No spiders on the anterior chest wall. Mild gynecomastia B/L, secondary to obesity. Mild pruritic rash on torso and UE, with excoriations from scratching. No CVA tenderness. No spine tenderness. Lungs: clear to A&P, without wheezing, rales, or rhonchi. Heart exam: regular rate rhythm, S1 and S2, without any murmur. Abdominal exam: normal bowel sounds , soft obese belly, currently with minimal epigastric tenderness, without guarding or rebound. Reducible umbilical hernia. Otherwise, no mass, within the limits of the body habitus. Negative Recinos sign. No definite organomegaly. No fluid shift. No pulsatile mass. No epigastric bruit. Digital rectal exam: deferred by patient. Extremities: without cyanosis or clubbing. Trace pedal edema B/L. Mild stasis dermatitis changes of LE B/L. Mild DJD. No palpable cords. Tiny healed ulcer left heal. Distal pulses 1+ bilaterally. DTRs 2+ bilaterally. No palmar erythema. No Dupuytren's contractures. Alert and oriented x 3. No tremor. No asterixis. Motor 5/5 B/L. A detailed exam for peripheral neuropathy was deferred, but is present by history. Results Pertinent Lab Results: Laboratory Tests 12/28 12/27 12/27 0425 2240 1940 Chemistry Sodium (137 - 145 mmol/L) 142 Potassium (3.5 - 5.1 mmol/L) 5.2 H Chloride (98 - 107 mmol/L) 108 H Carbon Dioxide (22 - 30 mmol/L) 24 Anion Gap (5 - 16) 10 BUN (9 - 20 mg/dL) 43 H Creatinine (0.7 - 1.2 mg/dL) 2.5 H Estimated GFR (>60 ml/min) 27 L BUN/Creatinine Ratio (7 - 25 %) 17.2 Lactic Acid (0.7 - 2.1 mmol/L) 1.6 2.4 H Total Bilirubin (0.2 - 1.3 mg/dL) 4.2 H Direct Bilirubin (< 0.4 mg/dL) 3.4 H AST (17 - 59 U/L) 94 H ALT (21 - 72 U/L) 159 H Alkaline Phosphatase (< 127 U/L) 238 H Total Protein (6.3 - 8.2 g/dL) 5.8 L Albumin (3.5 - 5.0 g/dL) 2.8 L Amylase (30 - 110 U/L) 1030 H Lipase (23 - 300 U/L) 6978 H TSH (0.270 - 4.200 uIU/mL) 0.485 Hematology CBC w Diff MAN DIFF ORDERED WBC (4.8 - 10.8 /CUMM) 15.1 H RBC (4.70 - 6.10 /CUMM) 3.91 L Hgb (14.0 - 18.0 G/DL) 11.1 L Hct (42 - 52 %) 33.5 L MCV (80.0 - 94.0 FL) 85.5 MCH (27.0 - 31.0 PG) 28.5 MCHC (33.0 - 37.0 G/DL) 33.3 RDW (11.5 - 14.5 %) 15.1 H Plt Count (130 - 400 /CUMM) 181 MPV (7.4 - 10.4 FL) 8.2 Gran % (42.2 - 75.2 %) 90.2 H Lymphocytes % (20.5 - 51.1 %) 2.9 L Monocytes % (1.7 - 9.3 %) 6.8 Eosinophils % (0 - 5 %) 0.1 Basophils % (0.0 - 2.0 %) 0 Absolute Granulocytes (1.4 - 6.5 /CUMM) 13.6 H Segmented Neutrophils (42.2 - 75.2 %) 77 H Band Neutrophils (0.0 - 5.0 %) 6 H Absolute Lymphocytes (1.2 - 3.4 /CUMM) 0.4 L Lymphocytes (20.5 - 51.1 %) 5 L Monocytes (1.7 - 9.3 %) 10 H Absolute Monocytes (0.10 - 0.60 /CUMM) 1.0 H Absolute Eosinophils (0.0 - 0.7 /CUMM) 0 Absolute Basophils (0.0 - 0.2 /CUMM) 0 Metamyelocytes (0.0 - 1.0 %) 2 H Platelet Estimate (ADEQUATE) ADEQUATE Polychromasia 1+ Poikilocytosis 1+ Ovalocytes 1+ Other Body Source Fld Total RBCs Counted (%) 100 12/27 12/27 7084 4764 Coagulation PT (9.4 - 12.5 SEC) 14.1 H INR (0.90 - 1.17) 1.29 H APTT (25 - 37 SEC) 29 Urines Urinalysis MOD H Urine Color (YEL,AMB,STR) YEL Urine Clarity (CLEAR) HAZY H Urine pH (5.0 - 8.0) 6.0 Ur Specific [place] (1.001 - 1.035) 1.020 Urine Protein (NEG,<30 MG/DL) 100 H Urine Ketones (NEG) NEG Urine Nitrite (NEG) NEG Urine Bilirubin (NEG) SMALL H Urine Urobilinogen (0.1 - 1.0 EU/dl) 0.2 Ur Leukocyte Esterase (NEG) NEG Ur Microscopic SEDIMENT EXAMINED Urine RBC (0 - 5 /HPF) 3-5 Urine WBC (0 - 2 /HPF) 3-5 H Granular Casts (NONE /LPF) FEW H Urine Hemoglobin (NEG) MOD H Urine Glucose (N MG/DL) NEG 12/27 1052 Chemistry Sodium (137 - 145 mmol/L) 142 Potassium (3.5 - 5.1 mmol/L) 4.6 Chloride (98 - 107 mmol/L) 104 Carbon Dioxide (22 - 30 mmol/L) 24 Anion Gap (5 - 16) 13 BUN (9 - 20 mg/dL) 40 H Creatinine (0.7 - 1.2 mg/dL) 1.8 H Estimated GFR (>60 ml/min) 39 L BUN/Creatinine Ratio (7 - 25 %) 22.2 Glucose (65 - 99 mg/dL) 230 H Calcium (8.4 - 10.2 mg/dL) 9.1 Total Bilirubin (0.2 - 1.3 mg/dL) 4.2 H AST (17 - 59 U/L) 136 H ALT (21 - 72 U/L) 215 H Alkaline Phosphatase (< 127 U/L) 334 H Lactate Dehydrogenase (313 - 618 U/L) 581 Troponin I (<0.11 ng/ml) < 0.01 Total Protein (6.3 - 8.2 g/dL) 7.3 Albumin (3.5 - 5.0 g/dL) 3.8 Globulin (1.9 - 4.2 gm/dL) 3.5 Albumin/Globulin Ratio (1.1 - 2.2 %) 1.1 Triglycerides (<150 mg/dL) 103 Cholesterol (< 200 MG/DL) 118 LDL Cholesterol, Calc (65 - 129 mg/dL) 68 HDL Cholesterol (40 - 60 mg/dL) 30 L Cholesterol/HDL Ratio (0.00 - 4.88 %) 4 Amylase (30 - 110 U/L) 2093 H Lipase (23 - 300 U/L) > 67429 H Hematology CBC w Diff NO MAN DIFF REQ WBC (4.8 - 10.8 /CUMM) 9.3 RBC (4.70 - 6.10 /CUMM) 5.08 Hgb (14.0 - 18.0 G/DL) 14.3 Hct (42 - 52 %) 42.1 MCV (80.0 - 94.0 FL) 82.9 MCH (27.0 - 31.0 PG) 28.2 MCHC (33.0 - 37.0 G/DL) 34.1 RDW (11.5 - 14.5 %) 14.5 Plt Count (130 - 400 /CUMM) 241 MPV (7.4 - 10.4 FL) 8.0 Gran % (42.2 - 75.2 %) 87.8 H Lymphocytes % (20.5 - 51.1 %) 7.3 L Monocytes % (1.7 - 9.3 %) 4.8 Eosinophils % (0 - 5 %) 0 Basophils % (0.0 - 2.0 %) 0.1 Absolute Granulocytes (1.4 - 6.5 /CUMM) 8.1 H Absolute Lymphocytes (1.2 - 3.4 /CUMM) 0.7 L Absolute Monocytes (0.10 - 0.60 /CUMM) 0.4 Absolute Eosinophils (0.0 - 0.7 /CUMM) 0 Absolute Basophils (0.0 - 0.2 /CUMM) 0 Serology Hepatitis A IgM Ab (NONREACTIVE) NONREACTIVE Hep Bs Antigen (NONREACTIVE) NONREACTIVE Hep B Core IgM Ab Conf (NONREACTIVE) NONREACTIVE Hepatitis C Antibody (NONREACTIVE) NONREACTIVE Imaging/Other Studies: 12/27/17: EKG- ST @ 101, nl axis, nl intervals, PRWP across the precordium, mini q I & L, NSST inf. 12/27/17: CT ABDOMEN AND PELVIS WITHOUT IV CONTRAST (*CKD)- IMPRESSION: 1. Cholelithiasis. No CT findings of acute cholecystitis. Mildly dilated CBD 1 cm. Normal liver. 2. Bilateral perinephric stranding. No nephrolithiasis, ureterolithiasis, or other findings of obstructive uropathy. 3. Few borderline enlarged periportal lymph nodes. 4. 3.3 cm water density cystic lesion at the lower pole left kidney. This is incompletely evaluated without intravenous contrast material. It was not seen on prior ultrasound. Consider follow-up renal protocol CT with and without contrast or MRI with and without contrast for further evaluation. 5. Fat-containing umbilical hernia. Normal AP & bowel. 6. ASHD of abdominal aorta & iliac arteries, No AAA. 7. T12 hemangioma. Mild DJD. Assessment/Plan Assessment/Recommendations: 58 y/o male, HTN (concn LVH), HLD, DM with neuropathy & CKD, obesity, past hx chronic left heel ulcer requiring I & D, f/b split-thickness skin graft 12/2015, hypoT4, GERD, who presented to the [facility] ER 12/27/17 at 10:09 a.m. with 2 days of nausea, vomiting, & sharp epigastric pain for 2 days [employer]. He also had decreased po intake during this time, and his thought he looked yellow. Upon arrival, BP 196/88, P 78, RR 18, T 98.4, O2 sat RA 99%. The patient then became hypotensive that afternoon, with BP 82/52, which improved after IV fluids. He did not spike any fevers in the ER. He was given IV NS, Zofran, MS, & Toradol in the ER. The vomitus showed clear emesis & bile. There was no hematemesis, melena, or BRBPR. He was initially going to be admitted to general medicine, then was upgraded to the ICU for closer monitoring. No CXR was done on admission. The patient was cultured & started on Zosyn, as per the ICU team. His elevated bilirubin has persisted, but his other LFTs have slightly improved. He was not on any outpatient NSAIDs, significant Tylenol, or herbal medications. Regarding his outpt meds, Atorvastatin, HCTZ, & Trulicity can cause pancreatitis (the latter, which was his newest med, was self-D/C'd 1 week [employer]). Glipizide can cause cholestasis & hepatitis. Avapro can cause hepatitis. He was a nonsmoker. He denied any EtOH or illicit drug use. He had no previous blood transfusions, tattoos. or IVDA. He denied any previous history of viral hepatitis. He denied any symptoms of UTI or URI. He noted dark urine for the past couple of days. He denied any light stools. He noted a mild pruritic rash, which he was scratching. At present, the patient's abdominal pain was minimal. His nausea and vomiting was improved. He denied any fevers, chills, or confusion. His hypotension had resolved. He denied any CP or SOB. He had no diarrhea, constipation, obstipation, or tenesmus. He denied any early satiety. Of note, the patient had never had a baseline screening colonoscopy or EGD (mild GERD). There is no family history of GI CA, GI disease, or inherited liver disease. Patient's mother at 70 from lymphoma, and his father at 57 from melanoma. 12/27/17: 1052: Admission labs-WBC 9.3 (88% gram/8 gran Ab), H/H 14.3/42.1, MCV 82.9, RDW 14.5, PLT 241, glu 230, BUN/Cr 40/1.8, GFR 39, Na 142, K 4.6, HCO3 24, QAG 13, amylase 2093, lipase > 10K, Ca 9.1, albumin 3.8, globulin 3.5, TBil 4.2 (w/o fracs), alk phos 334, AST 136, ALT 215, TChol 118, TG 103, HDL 30, LDL 68, LDH 581, troponin < 0.01 12/27/17: *Hep A Ab, Hep Bs Ag, Hep B core Ab, Hep C Ab- *all negative. 12/27/17: U/A- hazy, yellow, 1.020, 6.0, 3-5 RBC, 3-5 WBC, few granular cast, mod Hgb, sm bili, 0.2 urobil, 100+ prot, neg ketone; neg nitrite, neg esterase *Upon admission, 2 Grave signs by Erasto criteria (glucose, LDH) & 2 Grave signs by BiSAP criteria (elevated BUN & SIRS), but no CXR was done to r/o pleural effusion (none seen on CT AP). CT AP was obtained, but was somewhat limited w/o IV contrast, in view of CKD. 12/27/17: UC- pending. 12/27/17: BC X 2- pending. 12/27/17: EKG- ST @ 101, nl axis, nl intervals, PRWP across the precordium, mini q I & L, NSST inf. 12/27/17: CT ABDOMEN AND PELVIS WITHOUT IV CONTRAST (*CKD)- IMPRESSION: 1. Cholelithiasis. No CT findings of acute cholecystitis. Mildly dilated CBD 1 cm. Normal liver. 2. Bilateral perinephric stranding. No nephrolithiasis, ureterolithiasis, or other findings of obstructive uropathy. 3. Few borderline enlarged periportal lymph nodes. 4. 3.3 cm water density cystic lesion at the lower pole left kidney. This is incompletely evaluated without intravenous contrast material. It was not seen on prior ultrasound. Consider follow-up renal protocol CT with and without contrast or MRI with and without contrast for further evaluation. 5. Fat-containing umbilical hernia. Normal AP & bowel. 6. ASHD of abdominal aorta & iliac arteries, No AAA. 7. T12 hemangioma. Mild DJD. 12/27/17: lactate 2.4-> 1.6 12/27/17: PT 14.1, INR 1.29, PTT 29 12/28/17: 0425: WBC 15.1 (77S/6B/5L/10M/2Meta), H/H 11.1/33.5, MCV 85.5, RDW 15.1, PLT 181, BUN/Cr 43/2.5, GFR 27, Na 142, K 5.2, HCO3 24, AG 10, amyalse 1030, lipase 6978, albumin 2.8, globulin 3.0, TBil 4.2, DBil 3.4, alk phos 238, AST 94, ALT 159 *Upon admission, 2 Grave signs by Dana criteria (glucose, LDH) & 2 Grave signs by BiSAP criteria (elevated BUN & SIRS), but no CXR was done to r/o pleural effusion (none seen on CT AP). CT AP was obtained, but was somewhat limited w/o IV contrast, in view of CKD. The pancreatitis is probably gallstone induced. Doubt medication-induced, although Atorvastatin, HCTZ, & Trulicity can all cause pancreatitis (the latter, which was his newest med, was self-D/C'd 1 week [employer]). His pruritic rash was noted. Glipizide can cause cholestasis & hepatitis. Avapro can cause hepatitis. The CBD was 1 cm which is somewhat dilated for the patient's age. Rule out choledocholithiasis. Cholangitis less likely, although the patient was hypotensive (although this could have been from MS). However, his WBC did rise. He is on antibiotics (Zosyn, per ICU team). *SUGGEST: NPO. Maintain in ICU. IVF (currently IV Rigers Lactate at 250 cc/hr). Watch for hemoconcentration (i.e.- rising Hgb and/or BUN, despite IVF), which would be a poor prognostic sign. Supplemental O2 prn. Follow-up cultures. Empiric antibiotics for now (on Zosyn). Hold NSAIDs (CKD). Hold all unnecessary meds for now. *Empiric Vit K 10 mg sc x 1 now please. *As TBil has remained > 4, with cholelithiasis & dilated CBD 1 cm, MRCP will probably be a superfluous test & the patient will most likely need a definitive ERCP later today. As I do not perform interventional biliary endoscopy, I left a message with Dr. Pepper Sparks regarding the above & later spoke with him (Dr. Bojorquez had called him earlier to discuss the case). *Check CRP for prognostic purposes within the next 1-2 days. Close follow-up of CBC, lytes, GFR, & LFTs. CXR (r/o pleural effusion). DVT prophylaxis. Zofran as needed. Atarax prn. Follow-up of other numerous medical issues, DM, abnormal urinary sediment, slightly atypical left renal cyst , etc., as per medical/ICU team. The patient & his , Anne-Marie, were given my office number. As an aside, I advised the patient to contact the office for a baseline screening colonoscopy after his pancreatitis resolves. The above was discussed with the [facility] ICU medical team. Please call GI sooner, should the patient deteriorate. 1 hour of ICU care was spent on the patient. Problem List: 1. Hypotension 2. Jaundice 3. Gallstone pancreatitis 4. Elevated LFTs 5. Epigastric pain 6. Nausea and vomiting 7. Umbilical hernia 8. CKD (chronic kidney disease) Copies To: Nilson MUÑOZ,Justine; Didier MUÑOZ,Ernie Ch; Brendan MUÑOZ,González Consult Acknowledgment - Thank you for your consult request.
--- NOTE | 2017-12-28 07:58 | Cons- CRCU ---
See Addendum General Information and HPI Consulting Request Date of Consult: 12/28/17 Requested By: Primary admitting team Reason for Consult: Gallstone pancreatitis with likely ascending cholangitis Hypotensive episode History of Present Illness: 57 year old male with a PMH significant for hypertension, hypothyroidism, HLD, diabetes, GERD, that presents to us with complaints of a one and a half day history of abdominal pain, nausea and vomiting, jaundice, generalized urticaria, malaise. The patient states that he has never had any symptoms like this before and cannot recall doing anything that may have brought this on. He denies any new foods, ingesting any substances, alcohol, drug use recently. The patient notes that the abdominal pain is in a bandlike lesion across his mid abdomen, worse rated a 10 out of 10, with a sharp and burning quality. He states that the pain is worse on deep inspiration but is not worse on movement. The patient also complains of some new central back pain, not worse on movement. The patient states that his generalized urticaria started about 1-1/2 days ago as well. He denies any new detergents, no new animal exposure, recent travel, sick contacts, chronic opiate use. He had a similar episode about 6 months ago. The urticaria is so bad that the patient has been scratching himself while he sleeps leaving scattered excoriations. He attributes the urticaria distress. The patient's also noticed that he had jaundiced skin after they arrived at the ED. The patient denies any change in color of bowel movements or urine. He states that he has not been urinating much "because I have not drink very much". The patient has been vomiting as well, denies any blood in the vomitus, states that it is mostly clear as he has not eating due to having no appetite. The last thing that the patient attempted to eat with the banana last night which she promptly vomited. The patient finally states that he has had some diarrhea but states that this is "on and off" for some time, due to Trulicity (the although he stopped that 5 weeks ago). The patient has diabetes and this medication was started but stopped secondary to his diarrhea. The patient denies any drug use or smoking past or present. He admits to very rare alcohol use. Allergies/Medications Allergies: Coded Allergies: NO KNOWN ALLERGIES (NONE 12/27/17) Home Med List: Aspirin (Ecotrin*) 81 MG TABLET.DR 1 TAB PO DAILY HEART HEALTH (Reported) Atorvastatin Calcium (Lipitor) 40 MG TABLET 1 TAB PO DAILY CHOLESTEROL ( Reported) Glipizide 5 MG TABLET 1 TAB PO BID DIABETES (Reported) Hydrochlorothiazide 12.5 MG TABLET 1 TAB PO DAILY BP (Reported) Insulin Detemir (Levemir) 100 UNIT/ML VIAL 60 UNITS SC DAILY DIABETES ( Reported) Irbesartan (Avapro) 300 MG TABLET 1 TAB PO DAILY BP (Reported) Levothyroxine Sodium (Synthroid) 150 MCG TABLET 1 TAB PO DAILY THYROID ( Reported) Review of Systems Review of Systems Constitutional: Reports: see HPI. Past History Travel History Traveled to [place] past 21 day No Medical History Blood Transfusion Hx: No Neurological: NONE EENT: NONE Cardiovascular: hypertension, hyperlipidemia, HLD Respiratory: NONE Gastrointestinal: NONE Hepatic: NONE Renal: NONE Musculoskeletal: NONE Psychiatric: NONE Endocrine: diabetes, hypothyroidism, DM HYPOTHYROID Blood Disorders: NONE Cancer(s): NONE SOCIAL MEDIA SENIOR ASSOCIATE/Reproductive: NONE Surgical History Surgical History: none, non-contributory Family History Relations & Conditions If Any: MOTHER FHx: myocardial infarction FATHER FHx: myocardial infarction paternal grand parents FH: diabetes mellitus Psychosocial History Where Do You Live? Home Who Do You Live With? spouse, child Primary Language: Kiswahili Smoking Status: Never Smoked ETOH Use: denies use Functional Ability ADLs Independent: dressing, eating, toileting, bathing. Ambulation: independent IADLs Independent: shopping, housework, finances, food prep, telephone, transportation , medication admin. Exam & Diagnostic Data Last 24 Hrs of Vital Signs/I&O Vital Signs Date Time Temp Pulse Resp B/P B/P Pulse O2 O2 Flow FiO2 Mean Ox Delivery Rate 12/28 0738 97.7 66 18 130/60 98 Room Air 12/28 0000 98.1 70 18 114/58 97 Room Air 12/27 1930 98.6 84 16 136/58 98 Room Air 12/27 1816 98.8 79 18 113/59 98 Room Air 12/27 1724 76 18 90/52 98 Room Air 12/27 1633 99.5 82 18 82/52 97 Room Air Room Air 12/27 1315 98.6 83 18 129/58 98 Room Air 12/27 1044 98.4 78 18 196/88 99 Room Air Intake & Output 05/16 1600 12/28 0800 12/28 0000 Intake Total 1933 894 Output Total 500 600 Balance 1433 294 Intake, IV 1933 894 Output, Urine 500 600 Patient 277 lb Weight Weight Reported by Patient Measurement Method Physical Exam General Appearance: alert, awake, comfortable, obese Respiratory: decreased breath sounds diffusely Cardiovascular: regular rate/rhythm Gastrointestinal: RUQ mild tenderness, decreased bowel sounds, erythemous patch on abd Extremities: 2+ radial pulses, 1+ LE pitting edema Last 48 Hrs of Labs/Zurdo: Laboratory Tests 12/28/17 0425: Anion Gap 10, Estimated GFR 27 L, BUN/Creatinine Ratio 17.2, Total Bilirubin 4.2 H, Direct Bilirubin 3.4 H, AST 94 H, ALT 159 H, Alkaline Phosphatase 238 H, Total Protein 5.8 L, Albumin 2.8 L, Amylase 1030 H, Lipase 6978 H, CBC w Diff MAN DIFF ORDERED, RBC 3.91 L, MCV 85.5, MCH 28.5, MCHC 33.3, RDW 15.1 H, MPV 8.2, Gran % 90.2 H, Lymphocytes % 2.9 L, Monocytes % 6.8, Eosinophils % 0.1, Basophils % 0, Absolute Granulocytes 13.6 H, Segmented Neutrophils 77 H, Band Neutrophils 6 H, Absolute Lymphocytes 0.4 L, Lymphocytes 5 L, Monocytes 10 H, Absolute Monocytes 1.0 H, Absolute Eosinophils 0, Absolute Basophils 0, Metamyelocytes 2 H, Platelet Estimate ADEQUATE, Polychromasia 1+, Poikilocytosis 1+, Ovalocytes 1+, Fld Total RBCs Counted 100 12/27/17 2240: Lactic Acid 1.6 12/27/17 1940: Lactic Acid 2.4 H 12/27/17 1856: PT 14.1 H, INR 1.29 H, APTT 29 12/27/17 1828: Urinalysis MOD H, Urine Color YEL, Urine Clarity HAZY H, Urine pH 6.0, Ur Specific [place] 1.020, Urine Protein 100 H, Urine Ketones NEG, Urine Nitrite NEG, Urine Bilirubin SMALL H, Urine Urobilinogen 0.2, Ur Leukocyte Esterase NEG , Ur Microscopic SEDIMENT EXAMINED, Urine RBC 3-5, Urine WBC 3-5 H, Granular Casts FEW H, Urine Hemoglobin MOD H, Urine Glucose NEG 12/27/17 1052: Anion Gap 13, Estimated GFR 39 L, BUN/Creatinine Ratio 22.2, Glucose 230 H, Calcium 9.1, Total Bilirubin 4.2 H, AST 136 H, ALT 215 H, Alkaline Phosphatase 334 H, Lactate Dehydrogenase 581, Troponin I < 0.01, Total Protein 7.3, Albumin 3.8, Globulin 3.5, Albumin/Globulin Ratio 1.1, Triglycerides 103, Cholesterol 118, LDL Cholesterol, Calc 68, HDL Cholesterol 30 L, Cholesterol/ HDL Ratio 4, Amylase 2093 H, Lipase > 31626 H, CBC w Diff NO MAN DIFF REQ, RBC 5.08, MCV 82.9, MCH 28.2, MCHC 34.1, RDW 14.5, MPV 8.0, Gran % 87.8 H, Lymphocytes % 7.3 L, Monocytes % 4.8, Eosinophils % 0, Basophils % 0.1, Absolute Granulocytes 8.1 H, Absolute Lymphocytes 0.7 L, Absolute Monocytes 0.4, Absolute Eosinophils 0, Absolute Basophils 0, Hepatitis A IgM Ab NONREACTIVE, Hep Bs Antigen NONREACTIVE, Hep B Core IgM Ab Conf NONREACTIVE, Hepatitis C Antibody NONREACTIVE Assessment/Plan CRCU Impression/Plan: A: 57 year old male with a PMH significant for hypertension, hypothyroidism, HLD, diabetes, GERD, that presenting with complaints 1.5 days history of abdominal pain, nausea and vomiting, jaundice, generalized urticaria, malaise most likely 2/2 gallstone pancreatitis with possible ascending cholangitis and hypotension after morphine administration in the ED: #Gallstone pancreatitis with bacteremia and possible ascending cholangitis The patient states that he has had 1.5 days of abd, pain N/V, jaundice, and itching. He was given IV NS, Zofran, morphine, & Toradol in the ER. The patient was previously on Trulicity which can cause pancreatitis but was self discontinued a week ago. Initial CT: Cholelithiasis with no acute cholecystitis, CBD measures 1 cm in diameter, mildly dilated, bilateral perinephric stranding, borderline enlarged periportal lymph nodes. Initial lactic acidosis has resolved, normal triglycerides and cholesterol but low HDL Mild fever to Tmax 99.5 with increasing WBC 9.3 -> 15.1 Amylase 2093 -> 1030 Lipase greater than 10,000 -> 6978 Tbili 4.2, Direct 3.4 AST 136 -> 94 ALT 215 -> 159 ALP 334 -> 238 -BC positive for gram - rods. cont empiric zoysn -f/u cxr to r/o effusion -will most liekly require ERCP as CBD is dialted. will give 10 vit k for INR ( 1.29). holding off mrcp -switch to D5LR @75. Pt resuscitated with 2LNS and 1L LR. -f/u heptatis viral panel -obtain crp tomorrow -IV PPI x3 days -atorvastatin and HCTZ are also know to cause pancreatitis, irbesartan can cause hepatitis -f/u GI recs #itching -itching most likely due to bile salt accumulation. cont to monitor #CHARLENE CKD baseline 1.8 Current Cr 2.5 -cont IV fluids -hold nsaids and hctz #Hypotensive episode Initial BP was 196/88 and dropped to 82-92/50 after administration of morphine. Improved with fluids -cont to monitor, holding irbesartan and hctz #Renal cyst Initial CT revealed 3.3 cm water density cystic lesion at the lower pole left kidney. This is incompletely evaluated without intravenous contrast material. It was not seen on prior ultrasound. - Consider follow-up renal protocol CT with and without contrast or MRI with and without contrast for further evaluation #HLD takes atorvastatin at home -currently holding #diabetes Was taking trulicity @ home but stopped due to [place]. -Continue Levemir and novolog sliding scale #Housekeeping NPO FULL CODE DVT prophylaxis - SC heparin Consult Acknowledgment - Thank you for your consult request.
[2017-12-28 09:37] VITALS: BP 130/60
--- NOTE | 2017-12-28 11:21 | RADIOLOGY REPORT ---
EXAMINATION: XR PORTABLE CHEST CLINICAL INFORMATION: Rule out pleural effusion. COMPARISON: 11/26/2015 TECHNIQUE: Portable frontal view of the chest was obtained. FINDINGS: Low lung volumes. Slight elevation of the right hemidiaphragm. There is bronchovascular crowding in the lung bases. There is hazy opacity in bilateral lung bases and costophrenic angles, suggesting atelectasis. Small effusions cannot be excluded. No overt pulmonary edema. No pneumothorax. IMPRESSION: Low lung volumes. Bibasilar atelectasis and bronchovascular crowding. Small effusions cannot be entirely excluded.
--- NOTE | 2017-12-28 15:36 | Proc Note ERCP ---
ERCP Procedure Procedure Date: 12/28/17 GI Procedure(s): ERCP Medical Scientist: Horacio Sparks M.D. ASA Classification: III Indications: Ascending cholangitis Gallstone pancreatitis Instrument: duodenoscope Meds Received: MAC (SuperNova nasal mask) Patient's Tolerance: good Complications: none Procedure: The patient signed informed consent, was turned into the prone position, and was medicated. Pulse oximetry, blood pressure and cardiac monitoring were performed continuously throughout the procedure. Indomethacin 100 mg was administered per rectum. The Olympus V duodenoscope was inserted into the mouth and advanced to the duodenum. The stomach was not examined. The gastric outlet and duodenum were normal. The papilla was elongated, with a wide orifice, and evident flow of purulent bile. The pancreas was not cannulated/injected. The bile duct was cannulated and opacified. The cholangiogram demonstrated normal caliber of the CBD, and a dilated CHD. The hepatic ducts were normal. The cystic duct was partially opacified. The contour of the distal common bile duct was slightly irregular/shaggy. There were no filling defects or strictures. An occlusion cholangiogram was negative. The extraction balloon was inflated to 12 mm at the area of the bifurcation, and swept to the ampulla without visualization of any mobile filling defects. The balloon was partially deflated and pulled out the papilla into the duodenum, without delivery of stones, but covered with some adherent biodebris. Impression: * No evident choledocholithiasis. Contour of distal CBD consistent with inflammatory change. * Clinically, the patient passed a CBD stone. Recommendations: * Continue current antibiotics, pending identification and sensitivity of gram- negative rods in blood cultures. * Follow-up CBC and LFTs * May begin clear liquid diet * Surgery consultation for cholecystectomy, which optimally should be performed during this hospitalization. CC: Didier MUÑOZ,Ernie Ch; Brendan MUÑOZ,González
--- NOTE | 2017-12-28 15:41 | RADIOLOGY REPORT ---
EXAMINATION: INTRAOPERATIVE FLUOROSCOPY DURING ERCP CLINICAL INDICATION: 57-year-old male with history of gallstone pancreatitis. COMPARISON: None. TECHNIQUE: The procedure was performed by Dr. Sparks in the operating room. FLUOROSCOPY TIME: 5 minutes 0 seconds. Number of images: 18 FINDINGS: Several fluoroscopic images depicting ERCP identified. Cholangiogram was performed with opacification of the common and intrahepatic ducts. No definite filling defects are identified. A balloon was used to sweep across the common bile duct. IMPRESSION: Intraoperative fluoroscopy was utilized by Dr. Sparks during ERCP. Please refer to the operative report for a detailed description of the procedure and the real-time findings made and acted upon by the surgeon.
[2017-12-28 16:00] VITALS: BP 124/60
[2017-12-29] VITALS: BP 128/68
[2017-12-29 04:22] LABS: ABSOLUTE BASOPHIL COUNT 0 /CUMM (0.0-0.2); ABSOLUTE EOSINOPHIL COUNT 0.1 /CUMM (0.0-0.7); ABSOLUTE GRANULOCYTE CT 8.6 /CUMM (1.4-6.5); ABSOLUTE LYMPH COUNT 0.6 /CUMM (1.2-3.4); ABSOLUTE MONOCYTE COUNT 0.7 /CUMM (0.10-0.60); BASOPHIL % 0 % (0.0-2.0); HEMATOCRIT 35.5 % (42-52); MEAN CORPUSCULAR HGB 28.2 PG (27.0-31.0); MEAN CORPUSCULAR HGB CONC 32.9 G/DL (33.0-37.0); MEAN CORPUSCULAR VOLUME 85.6 FL (80.0-94.0); MEAN PLATELET VOLUME 8.4 FL (7.4-10.4); PLATELET COUNT 211 /CUMM (130-400); RBC DISTRIBUTION WIDTH 15.4 % (11.5-14.5); RED BLOOD CELL CT 4.15 /CUMM (4.70-6.10)
[2017-12-29 04:43] LABS: GRANULOCYTE % 85.9 % (42.2-75.2)
--- NOTE | 2017-12-29 07:23 | PN- Resident CRCU ---
Avila MUÑOZ,[facility] 12/29/17 0723: Subjective HPI/CRCU Issues: Patient complains of increasing diffuse itching. Also complains of increase rash of his abdominal area. Has mild abd pain today. Overnight nurse was informed that was going to be an addon for surgery. He was switched to clear liquids. However we called the surgical PA this AM who did not heart about the patient on the OR schedule. WIll hold for NPO until futher clarificaiton. Awating to be seen by surgery Objective Vital Signs & I&O Last 8 Hrs of Vitals and I&O: Laboratory Tests 12/29/17 0345: Anion Gap 16, Estimated GFR 18 L, Glucose 93, Calcium 8.3 L, Phosphorus 3.0, Magnesium 1.8, Total Bilirubin 3.8 H, AST 62 H, ALT 133 H, C-Reactive Prot, Quant > 9.0 H, C-React Prot High Sens > 15.0 H, Albumin 3.1 L, Amylase 335 H , Lipase 3126 H, CBC w Diff NO MAN DIFF REQ, RBC 4.15 L, MCV 85.6, MCH 28.2, MCHC 32.9 L, RDW 15.4 H, MPV 8.4, Gran % 85.9 H, Lymphocytes % 6.5 L, Monocytes % 6.6, Eosinophils % 1.0, Basophils % 0, Absolute Granulocytes 8.6 H, Absolute Lymphocytes 0.6 L, Absolute Monocytes 0.7 H, Absolute Eosinophils 0.1 , Absolute Basophils 0 Vital Signs Date Time Temp Pulse Resp B/P B/P Pulse O2 O2 Flow FiO2 Mean Ox Delivery Rate 12/29 0400 96 Room Air Exam General Appearance: no apparent distress, alert, awake Respiratory: normal breath sounds Cardiovascular: regular rate/rhythm Gastrointestinal: decreased bowel sounds, diffuse reticular/circular petechiae/ erythema of abdomen, no tenderness to palpation Extremities: 2+ lower extremity edema, L heel covered with dressing. diabetic ulcer. Current Medications: Current Medications Sig/Callie Start time Last Medication Dose Route Stop Time Status Admin Atorvastatin Calcium 40 MG 1700 12/29 1700 AC PO Dextrose/Lactated 1,000 ML Q13H 12/28 1045 AC 12/29 Ringer's IV 0021 Diphenhydramine HCl 25 MG ONCE ONE 12/29 0330 DC 12/29 IV 12/29 0331 0330 Diphenhydramine HCl 25 MG ONCE ONE 12/28 2045 DC 12/28 IV 12/28 2045 204 Fentanyl Citrate 100 MCG .STK-MED ONE 12/28 1400 DC IM 12/28 1401 Heparin Sodium 5,000 UNIT Q8 12/27 2210 12/29 (Porcine) SC 0555 Hydromorphone HCl 0.4 MG Q4P PRN 12/27 1745 AC IV Indomethacin 50 MG .STK-MED ONE 12/28 1621 DC NM 12/28 1622 Insulin Detemir 20 UNITS DAILY 12/29 0900 12/29 NV 0839 Insulin Detemir 25 UNITS BID 12/27 2100 DC 12/28 NV 0914 Insulin Human Regular 2 UNITS .STK-MED ONE 12/29 0022 DC IV 12/29 0023 Insulin Human Regular 2 UNITS .STK-MED ONE 12/28 1802 DC IV 12/28 1803 Insulin Human Regular 0 Q6 12/27 1850 12/29 NV 0024 Ketamine HCl 50 MG .STK-MED ONE 12/28 1400 DC IM 12/28 1401 Lactated Ringer's 1,000 ML .Q4H 12/27 1700 AZ 12/28 IV 0651 Levothyroxine Sodium 0.15 MG DAILY AC 12/29 0700 12/29 PO 0611 Lidocaine 2 BENIGNO .STK-MED ONE 12/28 1621 DC TOP 12/28 1622 Magnesium Oxide 400 MG ONE ONE 12/29 0745 CAN PO 12/29 0746 Magnesium Sulfate 1 GM ONCE ONE 12/29 0800 12/29 Dextrose/Water 100 ML IV 12/29 1159 0814 Midazolam HCl 2 MG .STK-MED ONE 12/28 1400 DC IM 12/28 1401 Pantoprazole Sodium 40 MG DAILY 12/28 1035 12/29 IV 12/30 0901 0814 Phytonadione 10 MG ONCE ONE 12/28 0930 DC 12/28 SC 12/28 0931 0943 Piperacillin Sod/ 4.5 GM Q6H 12/27 1845 12/29 Tazobactam Sod IV 0554 Sodium Chloride 100 ML Impression/Plan Impression/Problem List Impression: A: 57 year old male with a PMH significant for hypertension, hypothyroidism, HLD, diabetes, GERD, that presenting with complaints 1.5 days history of abdominal pain, nausea and vomiting, jaundice, generalized urticaria, malaise most likely 2/2 gallstone pancreatitis with possible ascending cholangitis and hypotension after morphine administration in the ED: #Gallstone pancreatitis with bacteremia and cholangitis The patient states that he has had 1.5 days of abd, pain N/V, jaundice, and itching. He was given IV NS, Zofran, morphine, & Toradol in the ER. The patient was previously on Trulicity which can cause pancreatitis but was self discontinued a week ago due to rash. Initial CT: Cholelithiasis with no acute cholecystitis, CBD measures 1 cm in diameter, mildly dilated, bilateral perinephric stranding, borderline enlarged periportal lymph nodes. Initial lactic acidosis has resolved, normal triglycerides and cholesterol but low HDL Mild fever to Tmax 99.5 with improving WBC 9.3 -> 15.1 -> 10 Amylase 2093 -> 1030 -> 335 (post ERCP) Lipase greater than 10,000 -> 6978 -> 6978 (post-ERCP) Tbili 4.2, Direct 3.4 AST 136 -> 94 -> 62 ALT 215 -> 159 -> 133 ALP 334 -> 238 CRP >9.0 Hepatits viral panel negative CXR: Low lung volumes. Bibasilar atelectasis and bronchovascular crowding. Small effusions cannot be entirely excluded. Patient had ERCP done yesterday which revealed findings consistent of CBD stone which has passed and cholangitis. -await surgical recommendations -BC positive for gram - rods. cont empiric zoysn -icnreased D5LR to 200/hr. Pt resuscitated with 2LNS and 1L LR. -IV PPI x3 days -atorvastatin and HCTZ are also know to cause pancreatitis, irbesartan can cause hepatitis. -f/u GI recs #itching -itching most likely due to bile salt accumulation. start benadryl cream #CHARLENE CKD baseline 1.8 Current Cr 3.5 Possibly secondary to indomethacin or ketorolac doses vs sepsis -f/u urine lyes and urine sodium -cont IV fluids @ 75 -hold nsaids and hctz #Hypotensive episode Initial BP was 196/88 and dropped to 82-92/50 after administration of morphine. Improved with fluids -cont to monitor, holding irbesartan and hctz #Renal cyst Initial CT revealed 3.3 cm water density cystic lesion at the lower pole left kidney. This is incompletely evaluated without intravenous contrast material. It was not seen on prior ultrasound. - Consider follow-up renal protocol CT with and without contrast or MRI with and without contrast for further evaluation #HLD takes atorvastatin at home -restarted artorvastatin.as ercp revealed findings more consistent of gallstone pancreaitis. #diabetes Was taking trulicity @ home but stopped due to rash. -Continue Levemir and novolog sliding scale #hypothyroidism -restart levothyroxine #Housekeeping NPO FULL CODE DVT prophylaxis - SC heparin Problem List: 1. Gram-negative bacteremia 2. Cholangitis 3. Gallstone pancreatitis Pain Ratin Tomorrow's Labs & Rationales: cbc icu bundle inr Plan DVT/Prophylaxis: subq heparin Nori MUÑOZ,[facility] 12/29/17 1322: Attending MD Review Statement Attending Sign Off Attending Cosign Statement: I have: examined this patient, reviewed [employer] EMR data, personally reviewd images, discussd w/resident/PA/CONDITIONER TUMBLER OPERATOR, discussed mgmt plan w/eda, discussed mgmt plan w/CM, discussed mgmt plan w/pt, agreed w/resident/PA/CONDITIONER TUMBLER OPERATOR, amended to note. Other Findings: Still has ongoing itching Still has a rash on his abdominal wall Surgery to see him This is a gentleman with significant diabetes, morbid obesity, hypertension, hyperlipidemia, diabetes with diabetic neuropathy and previous diabetic foot ulcer, came into the hospital with fever or severe abdominal pain obstructive jaundice with clinical signs and symptoms suggestive of biliary colic with obstructive jaundice and pancreatitis. He now has Slowly resolving Gram-negative sepsis due to biliary sepsis status post ERCP- and there was no evidence of choledocholithiasis and patient seems to have passed the stone. Pancreatitis related to gallstone pancreatitis which is slowly improving Chronic kidney disease with acute kidney injury with diabetes. Patient was on NSAIDs now with worsening creatinine, pt did get nsaid in the ed, with sepsis contributing to it Renal cyst which needs follow-up Diabetes, on insulin. Patient was on trulicity which he has stopped, due to rash now also has pancreatitis RECOMMENDATION/PLAN As noted above Gentle IV fluid resuscitation Surgical consult noted pt still ambivalent for surg Ceftriaxone and Flagyl tomorrow Continue insulin 20 units and slowly increase and subcutaneous insulin Heparin subcutaneous Hold angiotensin receptor blockers, hold glipizide. Resume Lipitor and Synthroid Patient is critically ill total time spent 37 minutes
--- NOTE | 2017-12-29 07:27 | PN- Gastroenterology ---
Assessment/Plan GI Assessment/Recommendations: 58 y/o male, HTN (concn LVH), HLD, DM with neuropathy & CKD, obesity, past hx chronic left heel ulcer requiring I & D, f/b split-thickness skin graft 12/2015, hypoT4, GERD, who presented to the [facility] ER 12/27/17 at 10:09 a.m. with 2 days of nausea, vomiting, & sharp epigastric pain for 2 days [facility]. He also had decreased po intake during this time, and his thought he looked yellow. Upon arrival, BP 196/88, P 78, RR 18, T 98.4, O2 sat RA 99%. The patient then became hypotensive that afternoon, with BP 82/52, which improved after IV fluids. He did not spike any fevers in the ER. He was given IV NS, Zofran, MS, & Toradol in the ER. The vomitus showed clear emesis & bile. There was no hematemesis, melena, or BRBPR. He was initially going to be admitted to general medicine, then was upgraded to the ICU for closer monitoring. No CXR was done on admission. The patient was cultured & started on Zosyn, as per the ICU team. His elevated bilirubin has persisted, but his other LFTs have slightly improved. He was not on any outpatient NSAIDs, significant Tylenol, or herbal medications. Regarding his outpt meds, Atorvastatin, HCTZ, & Trulicity can cause pancreatitis (the latter, which was his newest med, was self-D/C'd 1 week [facility]). Glipizide can cause cholestasis & hepatitis. Avapro can cause hepatitis. He was a nonsmoker. He denied any EtOH or illicit drug use. He had no previous blood transfusions, tattoos. or IVDA. He denied any previous history of viral hepatitis. He denied any symptoms of UTI or URI. He noted dark urine for the past couple of days. He denied any light stools. He noted a mild pruritic rash, which he was scratching. At present, the patient's abdominal pain was minimal. His nausea and vomiting was improved. He denied any fevers, chills, or confusion. His hypotension had resolved. He denied any CP or SOB. He had no diarrhea, constipation, obstipation, or tenesmus. He denied any early satiety. Of note, the patient had never had a baseline screening colonoscopy or EGD (mild GERD). There is no family history of GI CA, GI disease, or inherited liver disease. Patient's mother at 70 from lymphoma, and his father at 57 from melanoma. 12/27/17: 1052: Admission labs-WBC 9.3 (88% gram/8 gran Ab), H/H 14.3/42.1, MCV 82.9, RDW 14.5, PLT 241, glu 230, BUN/Cr 40/1.8, GFR 39, Na 142, K 4.6, HCO3 24, QAG 13, amylase 2093, lipase > 10K, Ca 9.1, albumin 3.8, globulin 3.5, TBil 4.2 (w/o fracs), alk phos 334, AST 136, ALT 215, TChol 118, TG 103, HDL 30, LDL 68, LDH 581, troponin < 0.01 12/27/17: *Hep A Ab, Hep Bs Ag, Hep B core Ab, Hep C Ab- *all negative. 12/27/17: U/A- hazy, yellow, 1.020, 6.0, 3-5 RBC, 3-5 WBC, few granular cast, mod Hgb, sm bili, 0.2 urobil, 100+ prot, neg ketone; neg nitrite, neg esterase *Upon admission, 2 Grave signs by [place] criteria (glucose, LDH) & 2 Grave signs by BiSAP criteria (elevated BUN & SIRS), but no CXR was done to r/o pleural effusion (none seen on CT AP). CT AP was obtained, but was somewhat limited w/o IV contrast, in view of CKD. 12/27/17: UC- pending. 12/27/17: BC X 2- pending. 12/27/17: EKG- ST @ 101, nl axis, nl intervals, PRWP across the precordium, mini q I & L, NSST inf. 12/27/17: CT ABDOMEN AND PELVIS WITHOUT IV CONTRAST (*CKD)- IMPRESSION: 1. Cholelithiasis. No CT findings of acute cholecystitis. Mildly dilated CBD 1 cm. Normal liver. 2. Bilateral perinephric stranding. No nephrolithiasis, ureterolithiasis, or other findings of obstructive uropathy. 3. Few borderline enlarged periportal lymph nodes. 4. 3.3 cm water density cystic lesion at the lower pole left kidney. This is incompletely evaluated without intravenous contrast material. It was not seen on prior ultrasound. Consider follow-up renal protocol CT with and without contrast or MRI with and without contrast for further evaluation. 5. Fat-containing umbilical hernia. Normal AP & bowel. 6. ASHD of abdominal aorta & iliac arteries, No AAA. 7. T12 hemangioma. Mild DJD. 12/27/17: lactate 2.4-> 1.6 12/27/17: PT 14.1, INR 1.29, PTT 29 12/28/17: 0425: WBC 15.1 (77S/6B/5L/10M/2Meta), H/H 11.1/33.5, MCV 85.5, RDW 15.1, PLT 181, BUN/Cr 43/2.5, GFR 27, Na 142, K 5.2, HCO3 24, AG 10, amyalse 1030, lipase 6978, albumin 2.8, globulin 3.0, TBil 4.2, DBil 3.4, alk phos 238, AST 94, ALT 159 *Upon admission, 2 Grave signs by [place] criteria (glucose, LDH) & 2 Grave signs by BiSAP criteria (elevated BUN & SIRS), but no CXR was done to r/o pleural effusion (none seen on CT AP). CT AP was obtained, but was somewhat limited w/o IV contrast, in view of CKD. The pancreatitis is probably gallstone induced. Doubt medication-induced, although Atorvastatin, HCTZ, & Trulicity can all cause pancreatitis (the latter, which was his newest med, was self-D/C'd 1 week [facility]). His pruritic rash was noted. Glipizide can cause cholestasis & hepatitis. Avapro can cause hepatitis. The CBD was 1 cm which is somewhat dilated for the patient's age. Rule out choledocholithiasis. Cholangitis less likely, although the patient was hypotensive (although this could have been from MS). However, his WBC did rise. He is on antibiotics (Zosyn, per ICU team). 12/28/17: XRY-PORTABLE CHEST XRAY Low lung volumes. Bibasilar atelectasis and bronchovascular crowding. Slight elevation of right hemidiaphragm. Small effusions cannot be entirely excluded. 12/28/17: XRY-ERCP BILIARY & PANCREATIC- Intraoperative fluoroscopy was utilized by Dr. Sparks during ERCP. Cholangiogram was performed with opacification of the common and intrahepatic ducts. No definite filling defects are identified. A balloon was used to sweep across the common bile duct. (Please refer to the operative report for a detailed description of the procedure and the real-time findings made and acted upon by the surgeon). 12/28/17: *ERCP (per Dr. Pepper Sparks)- Impression: * No evident choledocholithiasis. Contour of distal CBD consistent with inflammatory change. * Balloon sweep of CBD clean. No ES performed. *Pus seen draining from ampulla. * Clinically, the patient passed a CBD stone. 12/27/17: lactate normalized (down to 1.6). 12/29/17: 0345: WBC 10.0 (86% gran/9 gran Ab), H/H 11.7/35.5, MCV 85.6, RDW 15.4 , PLT 211, glucose 93, BUN/Cr 50/3.5, GFR 18, Na 145, K 4.4, HCO3 22, AG 16, Mg 1.8, Ca 8.3, PO4 3.0, albumin 3.1, TBil 3.8, alk phos 238, AST 62, ALT 133, *CRP > 9.0, *Events since my 12/28/17: GI consult noted. *The patient clearly had cholangitis, as he developed gram negative bacteremia (*12/27/17: BC x 2- *GNR with ID/sens- pending; 12/27/17: UC- neg x 1 day). 12/28/17: ERCP with balloon sweep (post Indocin supp)- clean CBD. No evident choledocholithiasis. Pus seen draining from ampulla. Probable passed CBD stone. (no ES performed). *Surgical consult was called for CCKY and is pending. *As of 12/29/17, the patient was hemodynamically stable (except borderline tachycardic) and afebrile (T- 97.8), with O2 sat RA 96%. He remained on IV Zosyn. He has not required Dilaudid. His leukocytosis improved. His LFTs were slowly declining. His insulin, HLD, renal, & thyroid issues were being managed by the ICU team. His IVF had been decreased to D5RL @ 75 cc/hr. There was perhaps some mild hemoconcentration, as his Hgb & BUN shira. *His GFR had dropped. *I/O + 344 cc/past 24h. He appeared dehydrated. He denied any fevers or chills. He appeared less yellow. He had some mild residual RUQ/right flank pain. His nausea and vomiting had resolved. He denied any CP or SOB. He tolerated a small amount of clears po last pm, then was made NPO, in anticipation of eventual CCKY. *SUGGEST: Await ID & sensitivity of 12/27/17: blood cultures x 2 growing gram-negative rods. Continue Zosyn for now and adjust antibiotic accordingly. Increase IVF to D% RL @ 200 cc/hr for now, with close f/u of I/O, lytes, GFR, CBC, LFTs. Watch for hemoconcentration (i.e.- rising Hgb and/or BUN, despite IVF), which would be a poor prognostic sign. *NPO for now, pending surgical evaluation. Await surgical consult for CCKY, post stabilization (preferably to be done this admission). Maintain in ICU. Supplemental O2 prn. Hold NSAIDs (CKD). Hold all unnecessary meds for now. DVT prophylaxis. Zofran as needed. Atarax prn. Follow-up of other numerous medical issues, DM, abnormal urinary sediment, slightly atypical left renal cyst, CKD, HLD, hypoT4, etc., as per medical/ICU team. The patient & his , nAne-Marie, were previously given my office number. As an aside, I advised the patient to contact the office for a baseline screening colonoscopy after his pancreatitis resolves. The above was discussed with the [facility] ICU medical team. Please call GI sooner, should the patient deteriorate. Dr. Fitzgerald will be assuming the weekly inpatient GI coverage as of 5 PM this evening. Problem List: 1. Hypotension 2. Gallstone pancreatitis 3. Cholangitis 4. Gram-negative bacteremia 5. Jaundice 6. Elevated LFTs 7. Epigastric pain 8. Nausea and vomiting 9. Umbilical hernia 10. CKD (chronic kidney disease) Subjective Subjective: 12/28/17: XRY-PORTABLE CHEST XRAY Low lung volumes. Bibasilar atelectasis and bronchovascular crowding. Slight elevation of right hemidiaphragm. Small effusions cannot be entirely excluded. 12/28/17: XRY-ERCP BILIARY & PANCREATIC- Intraoperative fluoroscopy was utilized by Dr. Sparks during ERCP. Cholangiogram was performed with opacification of the common and intrahepatic ducts. No definite filling defects are identified. A balloon was used to sweep across the common bile duct. (Please refer to the operative report for a detailed description of the procedure and the real-time findings made and acted upon by the surgeon). 12/28/17: *ERCP (per Dr. Pepper Sparks)- Impression: * No evident choledocholithiasis. Contour of distal CBD consistent with inflammatory change. * Balloon sweep of CBD clean. No ES performed. *Pus seen draining from ampulla. * Clinically, the patient passed a CBD stone. 12/27/17: lactate normalized (down to 1.6). 12/29/17: 0345: WBC 10.0 (86% gran/9 gran Ab), H/H 11.7/35.5, MCV 85.6, RDW 15.4 , PLT 211, glucose 93, BUN/Cr 50/3.5, GFR 18, Na 145, K 4.4, HCO3 22, AG 16, Mg 1.8, Ca 8.3, PO4 3.0, albumin 3.1, TBil 3.8, alk phos 238, AST 62, ALT 133, *CRP > 9.0, *Events since my 12/28/17: GI consult noted. The patient clearly had cholangitis , as he developed gram negative bacteremia (*12/27/17: BC x 2- *GNR with ID/sens - pending; 12/27/17: UC- neg x 1 day). 12/28/17: ERCP with balloon sweep (post Indocin supp)- clean CBD. No evident choledocholithiasis. Pus seen draining from ampulla. Probable passed CBD stone. (no ES performed). *Surgical consult was called for CCKY and is pending. *As of 12/29/17, the patient was hemodynamically stable (except borderline tachycardic) and afebrile (T- 97.8), with O2 sat RA 96%. He remained on IV Zosyn. He has not required Dilaudid. His leukocytosis improved. His LFTs were slowly declining. His insulin, HLD, renal, & thyroid issues were being managed by the ICU team. His IVF had been decreased to D5RL @ 75 cc/hr. There was perhaps some mild hemoconcentration, as his Hgb & BUN shira. *His GFR had dropped. *I/O + 344 cc/past 24h. He appeared dehydrated. He denied any fevers or chills. He appeared less yellow. He had some mild residual RUQ/right flank pain. His nausea and vomiting had resolved. He denied any CP or SOB. He tolerated a small amount of clears po last pm, then was made NPO, in anticipation of CCKY. Review of Systems: Full 14 point ROS otherwise noncontributory, and as above. Constitutional: Denies: chills, diaphoresis, fever, malaise, weakness, unexplained weight loss. EENTM: Reports: icterus. Denies: blurred vision, double vision, visual changes, eye pain, eye drainage, eye tearing, ear discharge, ear pain, ear redness, hearing changes, nasal congestion, epistaxis, nasal pain, throat pain, throat swelling, mouth pain, tooth pain. Cardiovascular: Denies: chest pain, edema, orthopena, palpitations, peripheral edema, syncope. Respiratory: Denies: cough, hemoptysis, orthopnea, short of breath, sputum production, stridor, wheezing. GI: Reports: abdominal pain (RUQ)-> improving. Denies: nausea, vomiting, bloating, constipation, diarrhea, distention, bowel incontinence, melena, bloody stool, changes in stool, steatorrhea. Genitourinary: Denies: discharge, dysuria, frequency, hematuria, hesitation, nocturia, pain, urgency. Musculoskeletal: Denies: back pain, gout, joint pain, joint swelling, muscle pain, muscle stiffness, neck pain. Skin: Reports: jaundice, rash (pruritic). Denies: cysts, change in skin color, change in hair/nails, dryness, erythema, lesions, lymphangitis, lumps, moles. Neurological/Psychological: Reports: numbness. Denies: anxiety, ataxia, cognitive dysfunction, confusion, depressed, dementia, emotional problems, headache, paresthesia (hx peripheral neuropathy), pre-existing deficit, petit mal seizures, tingling, tremors, tonic- clonic seizures, unable to move lower ext, unable to move upper ext, weakness. Hematologic/Endocrine: Denies: bruising, bleeding, polyuria, polydipsia. Immunologic/Allergic: Denies: splenectomy, HIV/AIDS, lymphadenopathy. All Other Systems: Reviewed and Negative Objective Vital Signs and I&Os Vital Signs Date Time Temp Pulse Resp B/P B/P Pulse O2 O2 Flow FiO2 Mean Ox Delivery Rate 12/29 0400 96 Room Air 12/29 0000 96 Room Air 12/29 0000 97.8 104 16 128/68 96 Room Air 12/28 2000 94 Nasal 2.0L Cannula 12/28 1600 94 Nasal 2.0L Cannula 12/28 1600 98.5 75 18 124/60 92 Nasal 2.0L Cannula 12/28 0937 72 130/60 12/28 0738 97.7 66 18 130/60 98 Room Air Intake & Output 12/29 1600 12/29 0400 12/28 1600 12/28 0400 12/27 1600 12/27 0400 Intake Total 188 687 9511 894 1000 Output Total 833 793 1313 600 Balance 259 632 0507 294 1000 Intake, IV 424 541 1782 894 1000 Intake, Oral 300 100 Number 1 0 Bowel Movements Output, Urine 646 671 3959 600 Patient 277 lb 277 lb 280 lb Weight Weight Reported by Patient Reported by Patient Measurement Method Physical Exam: Well-developed, well-nourished, morbidly obese male, in no apparent distress. Sclera icteric. Conjunctiva pink. Oropharynx clear. No oral thrush. No aphthous ulcers. Slightly dry mucous membranes. There is no adenopathy, thyromegaly, or JVD. No peripheral stigmata of inflammatory bowel disease or chronic liver disease on exam. No spiders on the anterior chest wall. Mild gynecomastia B/L, secondary to obesity. Mild pruritic rash on torso and UE, with excoriations from scratching. No CVA tenderness. No spine tenderness. Lungs: clear to A&P, without wheezing, rales, or rhonchi. Slight decreased BS at bases B/L. Heart exam: regular rate rhythm, S1 and S2, without any murmur. Abdominal exam: normal bowel sounds, soft obese belly, currently with minimal RUQ tenderness, without guarding or rebound. Reducible umbilical hernia. Otherwise, no mass, within the limits of the body habitus. Negative Recinos sign. No definite organomegaly. No fluid shift. No pulsatile mass. No epigastric bruit. Digital rectal exam: deferred by patient. Extremities: without cyanosis or clubbing. Trace pedal edema B/L. Mild stasis dermatitis changes of LE B/L. Mild DJD. No palpable cords. Tiny healed ulcer left heal. Distal pulses 1+ bilaterally. DTRs 2+ bilaterally. No palmar erythema. No Dupuytren's contractures. Alert and oriented x 3. No tremor. No asterixis. Motor 5/5 B/L. A detailed exam for peripheral neuropathy was deferred, but is present by history. Current Medications: Current Medications Sig/Callie Start time Last Medication Dose Route Stop Time Status Admin Atorvastatin Calcium 40 MG 1700 12/29 1700 AC PO Dextrose/Lactated 1,000 ML Q13H 12/28 1045 12/29 Ringer's IV 0021 Diphenhydramine HCl 25 MG ONCE ONE 12/29 0330 DC 12/29 IV 12/29 0331 0330 Diphenhydramine HCl 25 MG ONCE ONE 12/28 2045 DC 12/28 IV 12/28 2045 204 Fentanyl Citrate 100 MCG .STK-MED ONE 12/28 1400 DC IM 12/28 1401 Heparin Sodium 5,000 UNIT Q8 12/27 2210 12/29 (Porcine) SC 0555 Hydromorphone HCl 0.4 MG Q4P PRN 12/27 1745 IV Indomethacin 50 MG .STK-MED ONE 12/28 1621 DC TX 12/28 1622 Insulin Detemir 20 UNITS DAILY 12/29 0900 AC SC Insulin Detemir 25 UNITS BID 12/27 2100 OK 12/28 SC 0914 Insulin Human Regular 2 UNITS .STK-MED ONE 12/28 1802 DC IV 12/28 1803 Insulin Human Regular 0 Q6 12/27 1850 12/29 SC 0024 Ketamine HCl 50 MG .STK-MED ONE 12/28 1400 DC IM 12/28 1401 Lactated Ringer's 1,000 ML .Q4H 12/27 1700 DC 12/28 IV 0651 Levothyroxine Sodium 0.15 MG DAILY AC 12/29 0700 AC 12/29 PO 0611 Lidocaine 2 BENIGNO .STK-MED ONE 12/28 1621 DC TOP 12/28 1622 Magnesium Oxide 400 MG ONE ONE 12/29 0745 CAN PO 12/29 0746 Magnesium Sulfate 1 GM ONCE ONE 12/29 0800 AC Dextrose/Water 100 ML IV 12/29 1159 Midazolam HCl 2 MG .STK-MED ONE 12/28 1400 DC IM 12/28 1401 Pantoprazole Sodium 40 MG DAILY 12/28 1035 AC 12/28 IV 12/30 0901 1041 Phytonadione 10 MG ONCE ONE 12/28 0930 DC 12/28 SC 12/28 0931 0943 Piperacillin Sod/ 4.5 GM Q6H 12/27 1845 AC 12/29 Tazobactam Sod IV 0554 Sodium Chloride 100 ML Results Pertinent Lab Results: Laboratory Tests 12/29 12/28 0345 0425 Chemistry Sodium (137 - 145 mmol/L) 145 142 Potassium (3.5 - 5.1 mmol/L) 4.4 5.2 H Chloride (98 - 107 mmol/L) 107 108 H Carbon Dioxide (22 - 30 mmol/L) 22 24 Anion Gap (5 - 16) 16 10 BUN (9 - 20 mg/dL) 50 H 43 H Creatinine (0.7 - 1.2 mg/dL) 3.5 H 2.5 H Estimated GFR (>60 ml/min) 18 L 27 L BUN/Creatinine Ratio (7 - 25 %) 17.2 Glucose (65 - 99 mg/dL) 93 Calcium (8.4 - 10.2 mg/dL) 8.3 L Phosphorus (2.5 - 4.5 mg/dL) 3.0 Magnesium (1.6 - 2.3 mg/dL) 1.8 Total Bilirubin (0.2 - 1.3 mg/dL) 3.8 H 4.2 H Direct Bilirubin (< 0.4 mg/dL) 3.4 H AST (17 - 59 U/L) 62 H 94 H ALT (21 - 72 U/L) 133 H 159 H Alkaline Phosphatase (< 127 U/L) 238 H C-Reactive Prot, Quant (<1.0 mg/dL) > 9.0 H C-React Prot High Sens (1.0 - 3.0 mg/L) > 15.0 H Total Protein (6.3 - 8.2 g/dL) 5.8 L Albumin (3.5 - 5.0 g/dL) 3.1 L 2.8 L Amylase (30 - 110 U/L) 1030 H Lipase (23 - 300 U/L) 6978 H TSH (0.270 - 4.200 uIU/mL) 0.485 Hematology CBC w Diff NO MAN DIFF REQ MAN DIFF ORDERED WBC (4.8 - 10.8 /CUMM) 10.0 15.1 H RBC (4.70 - 6.10 /CUMM) 4.15 L 3.91 L Hgb (14.0 - 18.0 G/DL) 11.7 L 11.1 L Hct (42 - 52 %) 35.5 L 33.5 L MCV (80.0 - 94.0 FL) 85.6 85.5 MCH (27.0 - 31.0 PG) 28.2 28.5 MCHC (33.0 - 37.0 G/DL) 32.9 L 33.3 RDW (11.5 - 14.5 %) 15.4 H 15.1 H Plt Count (130 - 400 /CUMM) 211 181 MPV (7.4 - 10.4 FL) 8.4 8.2 Gran % (42.2 - 75.2 %) 85.9 H 90.2 H Lymphocytes % (20.5 - 51.1 %) 6.5 L 2.9 L Monocytes % (1.7 - 9.3 %) 6.6 6.8 Eosinophils % (0 - 5 %) 1.0 0.1 Basophils % (0.0 - 2.0 %) 0 0 Absolute Granulocytes (1.4 - 6.5 /CUMM) 8.6 H 13.6 H Segmented Neutrophils (42.2 - 75.2 %) 77 H Band Neutrophils (0.0 - 5.0 %) 6 H Absolute Lymphocytes (1.2 - 3.4 /CUMM) 0.6 L 0.4 L Lymphocytes (20.5 - 51.1 %) 5 L Monocytes (1.7 - 9.3 %) 10 H Absolute Monocytes (0.10 - 0.60 /CUMM) 0.7 H 1.0 H Absolute Eosinophils (0.0 - 0.7 /CUMM) 0.1 0 Absolute Basophils (0.0 - 0.2 /CUMM) 0 0 Metamyelocytes (0.0 - 1.0 %) 2 H Platelet Estimate (ADEQUATE) ADEQUATE Polychromasia 1+ Poikilocytosis 1+ Ovalocytes 1+ Other Body Source Fld Total RBCs Counted (%) 100 12/27 12/27 12/27 2240 1940 1856 Chemistry Lactic Acid (0.7 - 2.1 mmol/L) 1.6 2.4 H Coagulation PT (9.4 - 12.5 SEC) 14.1 H INR (0.90 - 1.17) 1.29 H APTT (25 - 37 SEC) 29 12/27 12/27 1828 1052 Chemistry Sodium (137 - 145 mmol/L) 142 Potassium (3.5 - 5.1 mmol/L) 4.6 Chloride (98 - 107 mmol/L) 104 Carbon Dioxide (22 - 30 mmol/L) 24 Anion Gap (5 - 16) 13 BUN (9 - 20 mg/dL) 40 H Creatinine (0.7 - 1.2 mg/dL) 1.8 H Estimated GFR (>60 ml/min) 39 L BUN/Creatinine Ratio (7 - 25 %) 22.2 Glucose (65 - 99 mg/dL) 230 H Calcium (8.4 - 10.2 mg/dL) 9.1 Total Bilirubin (0.2 - 1.3 mg/dL) 4.2 H AST (17 - 59 U/L) 136 H ALT (21 - 72 U/L) 215 H Alkaline Phosphatase (< 127 U/L) 334 H Lactate Dehydrogenase (313 - 618 U/L) 581 Troponin I (<0.11 ng/ml) < 0.01 Total Protein (6.3 - 8.2 g/dL) 7.3 Albumin (3.5 - 5.0 g/dL) 3.8 Globulin (1.9 - 4.2 gm/dL) 3.5 Albumin/Globulin Ratio (1.1 - 2.2 %) 1.1 Triglycerides (<150 mg/dL) 103 Cholesterol (< 200 MG/DL) 118 LDL Cholesterol, Calc (65 - 129 mg/dL) 68 HDL Cholesterol (40 - 60 mg/dL) 30 L Cholesterol/HDL Ratio (0.00 - 4.88 %) 4 Amylase (30 - 110 U/L) 2093 H Lipase (23 - 300 U/L) > 63812 H Hematology CBC w Diff NO MAN DIFF REQ WBC (4.8 - 10.8 /CUMM) 9.3 RBC (4.70 - 6.10 /CUMM) 5.08 Hgb (14.0 - 18.0 G/DL) 14.3 Hct (42 - 52 %) 42.1 MCV (80.0 - 94.0 FL) 82.9 MCH (27.0 - 31.0 PG) 28.2 MCHC (33.0 - 37.0 G/DL) 34.1 RDW (11.5 - 14.5 %) 14.5 Plt Count (130 - 400 /CUMM) 241 MPV (7.4 - 10.4 FL) 8.0 Gran % (42.2 - 75.2 %) 87.8 H Lymphocytes % (20.5 - 51.1 %) 7.3 L Monocytes % (1.7 - 9.3 %) 4.8 Eosinophils % (0 - 5 %) 0 Basophils % (0.0 - 2.0 %) 0.1 Absolute Granulocytes (1.4 - 6.5 /CUMM) 8.1 H Absolute Lymphocytes (1.2 - 3.4 /CUMM) 0.7 L Absolute Monocytes (0.10 - 0.60 /CUMM) 0.4 Absolute Eosinophils (0.0 - 0.7 /CUMM) 0 Absolute Basophils (0.0 - 0.2 /CUMM) 0 Serology Hepatitis A IgM Ab (NONREACTIVE) NONREACTIVE Hep Bs Antigen (NONREACTIVE) NONREACTIVE Hep B Core IgM Ab Conf (NONREACTIVE) NONREACTIVE Hepatitis C Antibody (NONREACTIVE) NONREACTIVE Urines Urinalysis MOD H Urine Color (YEL,AMB,STR) YEL Urine Clarity (CLEAR) HAZY H Urine pH (5.0 - 8.0) 6.0 Ur Specific [place] (1.001 - 1.035) 1.020 Urine Protein (NEG,<30 MG/DL) 100 H Urine Ketones (NEG) NEG Urine Nitrite (NEG) NEG Urine Bilirubin (NEG) SMALL H Urine Urobilinogen (0.1 - 1.0 EU/dl) 0.2 Ur Leukocyte Esterase (NEG) NEG Ur Microscopic SEDIMENT EXAMINED Urine RBC (0 - 5 /HPF) 3-5 Urine WBC (0 - 2 /HPF) 3-5 H Granular Casts (NONE /LPF) FEW H Urine Hemoglobin (NEG) MOD H Urine Glucose (N MG/DL) NEG Imaging/Other Studies: 12/27/17: EKG- ST @ 101, nl axis, nl intervals, PRWP across the precordium, mini q I & L, NSST inf. 12/27/17: CT ABDOMEN AND PELVIS WITHOUT IV CONTRAST (*CKD)- IMPRESSION: 1. Cholelithiasis. No CT findings of acute cholecystitis. Mildly dilated CBD 1 cm. Normal liver. 2. Bilateral perinephric stranding. No nephrolithiasis, ureterolithiasis, or other findings of obstructive uropathy. 3. Few borderline enlarged periportal lymph nodes. 4. 3.3 cm water density cystic lesion at the lower pole left kidney. This is incompletely evaluated without intravenous contrast material. It was not seen on prior ultrasound. Consider follow-up renal protocol CT with and without contrast or MRI with and without contrast for further evaluation. 5. Fat-containing umbilical hernia. Normal AP & bowel. 6. ASHD of abdominal aorta & iliac arteries, No AAA. 7. T12 hemangioma. Mild DJD. 12/28/17: XRY-PORTABLE CHEST XRAY Low lung volumes. Bibasilar atelectasis and bronchovascular crowding. Slight elevation of right hemidiaphragm. Small effusions cannot be entirely excluded. 12/28/17: XRY-ERCP BILIARY & PANCREATIC- Intraoperative fluoroscopy was utilized by Dr. Sparks during ERCP. Cholangiogram was performed with opacification of the common and intrahepatic ducts. No definite filling defects are identified. A balloon was used to sweep across the common bile duct. (Please refer to the operative report for a detailed description of the procedure and the real-time findings made and acted upon by the surgeon). 12/28/17: *ERCP (per Dr. Pepper Sparks)- Impression: * No evident choledocholithiasis. Contour of distal CBD consistent with inflammatory change. * Balloon sweep of CBD clean. No ES performed. *Pus seen draining from ampulla. * Clinically, the patient passed a CBD stone.
[2017-12-29 08:00] VITALS: BP 116/50
--- NOTE | 2017-12-29 09:24 | Cons- General Surgery ---
General Information and HPI Consulting Request Date of Consult: 12/28/17 Requested By: Nori MUÑOZ,Guille Lima Reason for Consult: gallbladder Source of Information: patient Exam Limitations: no limitations History of Present Illness: Pt seen initially Tuesday evening the . CC: gallstones HPI: 57 yo nonsmoker diabetic, with Hx of surgery for foot infection, started having midepigastric pain Tuesday Mother's Day, large meal, it continued came to ER workup revealed gallstone pancreatitis, he was transferred to the ICU for some hypotension which has since resolved he says that initial pain is gone, he had an ERCP earlier today. This pain was not in the right upper quadrant it didn't radiate was not worse with activity he does recall a similar episode many years ago when he was on a strict low-fat diet and had one small dietary indiscretion which triggered an attack like this, but it never happened again until now. He denies any nausea vomiting diarrhea fever or chills. He is tolerating clear liquid diet right now with no pain. But he has noticed dark orange urine. No FHx of gallbladder problems. Otherwise no changes bowel habits, weight or appetite. I've reviewed the [facility]. No history of GERD, PUD, bleeding problems, heart disease or issues with anesthesia. Allergies/Medications Allergies: Coded Allergies: NO KNOWN ALLERGIES (NONE 12/27/17) Home Med List: Aspirin (Ecotrin*) 81 MG TABLET.DR 1 TAB PO DAILY HEART HEALTH (Reported) Atorvastatin Calcium (Lipitor) 40 MG TABLET 1 TAB PO DAILY CHOLESTEROL ( Reported) Glipizide 5 MG TABLET 1 TAB PO BID DIABETES (Reported) Hydrochlorothiazide 12.5 MG TABLET 1 TAB PO DAILY BP (Reported) Insulin Detemir (Levemir) 100 UNIT/ML VIAL 60 UNITS SC DAILY DIABETES ( Reported) Irbesartan (Avapro) 300 MG TABLET 1 TAB PO DAILY BP (Reported) Levothyroxine Sodium (Synthroid) 150 MCG TABLET 1 TAB PO DAILY THYROID ( Reported) Current Medications: I rev Current Medications Sig/Callie Start time Last Medication Dose Route Stop Time Status Admin Atorvastatin Calcium 40 MG 1700 12/29 1700 AC PO Dextrose/Lactated 1,000 ML Q13H 12/28 1045 AC 12/29 Ringer's IV 0021 Diphenhydramine HCl 25 MG ONCE ONE 12/29 0330 DC 12/29 IV 12/29 0331 0330 Diphenhydramine HCl 25 MG ONCE ONE 12/28 2045 DC 05 IV 12/28 2045 204 Fentanyl Citrate 100 MCG .STK-MED ONE 12/28 1400 DC IM 12/28 1401 Heparin Sodium 5,000 UNIT Q8 12/27 2210 AC 12/29 (Porcine) SC 0555 Hydromorphone HCl 0.4 MG Q4P PRN 12/27 1745 AC IV Indomethacin 50 MG .STK-MED ONE 12/28 1621 DC DC 12/28 1622 Insulin Detemir 20 UNITS DAILY 12/29 0900 AC 12/29 SC 0839 Insulin Detemir 25 UNITS BID 12/27 2100 DC 12/28 SC 0914 Insulin Human Regular 2 UNITS .STK-MED ONE 12/29 0022 DC IV 12/29 0023 Insulin Human Regular 2 UNITS .STK-MED ONE 12/28 1802 DC IV 12/28 1803 Insulin Human Regular 0 Q6 12/27 1850 AC 12/29 VA 0024 Ketamine HCl 50 MG .STK-MED ONE 12/28 1400 DC IM 12/28 1401 Lactated Ringer's 1,000 ML .Q4H 12/27 1700 DC 12/28 IV 0651 Levothyroxine Sodium 0.15 MG DAILY AC 12/29 0700 AC 12/29 PO 0611 Lidocaine 2 BENIGNO .STK-MED ONE 12/28 1621 DC TOP 12/28 1622 Magnesium Oxide 400 MG ONE ONE 12/29 0745 CAN PO 12/29 0746 Magnesium Sulfate 1 GM ONCE ONE 12/29 0800 AC 12/29 Dextrose/Water 100 ML IV 12/29 1159 0814 Midazolam HCl 2 MG .STK-MED ONE 12/28 1400 DC IM 12/28 1401 Pantoprazole Sodium 40 MG DAILY 12/28 1035 AC 12/29 IV 12/30 0901 0814 Phytonadione 10 MG ONCE ONE 12/28 0930 DC 12/28 SC 12/28 0931 0943 Piperacillin Sod/ 4.5 GM Q6H 12/27 1845 AC 12/29 Tazobactam Sod IV 0554 Sodium Chloride 100 ML Past History Medical History Blood Transfusion Hx: No Neurological: peripheral neuropathy (DM) EENT: NONE Cardiovascular: hypertension, hyperlipidemia Respiratory: NONE Gastrointestinal: NONE Hepatic: NONE Renal: chronic kidney disease (DM) Musculoskeletal: chronic left heel ulcer Psychiatric: NONE Endocrine: diabetes, hypothyroidism, obesity Blood Disorders: NONE Cancer(s): NONE 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 FHx: myocardial infarction FATHER, , Age 57; Cause: Melanoma. FHx: myocardial infarction paternal grand parents FH: diabetes mellitus SISTER ([employer]). Age 54. Psychosocial History Where Do You Live? Home Who Do You Live With? spouse (Anne-Marie), child Services at Home: None Primary Language: Norwegian Smoking Status: Never Smoked ETOH Use: denies use Illicit Drug Use: denies illicit drug use Living Will? no Power of Biology Department Chair/HCP? no Other Social History: to Anne-Marie. 2 kids (1 son & 1 dtr)- [employer]. No cigarettes, EtOH, or illicit drugs. 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 Functional Ability ADLs Independent: dressing, eating, toileting, bathing. Ambulation: independent IADLs Independent: shopping, housework, finances, food prep, telephone, transportation , medication admin. 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 Review of Systems Review of Systems: Constitutional: No fever, sweats or weight loss ENMT: No sore throat Cardiovascular: No chest pain, palpitations or leg swelling Respiratory: No shortness of breath, cough, or sputum or dyspnea on exertion GI: No GERD or bleeding per rectum : No dysuria or hematuria Musculoskeletal: No new muscle weakness, bone or joint pain Skin / Breast: No jaundice, rashes or itching Psychiatric: No history of drug or alcohol abuse no depression or anxiety Hematologic / lymphatic system: No problems with excessive bleeding, bruising, or blood clots Exam & Diagnostic Data Vital Signs and I&O I reviewed Vital Signs Date Time Temp Pulse Resp B/P B/P Pulse O2 O2 Flow FiO2 Mean Ox Delivery Rate 12/29 0400 96 Room Air 12/29 0000 96 Room Air 12/29 0000 97.8 104 16 128/68 96 Room Air 12/28 2000 94 Nasal 2.0L Cannula 12/28 1600 94 Nasal 2.0L Cannula 12/28 1600 98.5 75 18 124/60 92 Nasal 2.0L Cannula 12/28 0937 72 130/60 I reviewed Intake & Output 12/29 0812/29 0000 12/28 1600 12/28 0812/28 0000 Intake Total 956 352 5448 1933 894 Output Total 400 300 500 500 600 Balance 345 691 870 4082 294 Intake, IV 237 486 8144 1933 894 Intake, Oral 300 100 Number 1 0 Bowel Movements Output, Urine 400 300 500 500 600 Patient 277 lb 277 lb Weight Weight Reported by Patient Measurement Method Physical Exam: Constitutional: pleasant, no acute distress, conversant Eyes: sclera anicteric ENMT: ears and nose atraumatic, moist mucous membranes, good dentition, no lip lesions Neck: Supple, trachea is midline, no cervical or supraclavicular adenopathy and no palpable thyromegaly Cardiovascular: S1, S2, no murmurs, no peripheral edema Respiratory: clear to auscultation with normal respiratory effort and no intercostal retractions GI: abdomen soft, nontender, nondistended, no palpable hepatosplenomegaly Extremities / lymphatics: symmetrically warm, free range of motion no peripheral edema, no cervical, supraclavicular, axillary, or inguinal adenopathy Musculoskeletal: Did not evaluate gait and station, no digital cyanosis, good muscle strength and tone no atrophy, motor grossly 5 out of 5 throughout Skin: no jaundice, no rashes warm, nondiaphoretic, no areas of erythema or induration Psychiatric: mood and affect are appropriate and alert and oriented to person place and time Last 24 Hours of Labs: I reviewed Laboratory Tests 12/29 0345 Chemistry Sodium (137 - 145 mmol/L) 145 Potassium (3.5 - 5.1 mmol/L) 4.4 Chloride (98 - 107 mmol/L) 107 Carbon Dioxide (22 - 30 mmol/L) 22 Anion Gap (5 - 16) 16 BUN (9 - 20 mg/dL) 50 H Creatinine (0.7 - 1.2 mg/dL) 3.5 H Estimated GFR (>60 ml/min) 18 L Glucose (65 - 99 mg/dL) 93 Calcium (8.4 - 10.2 mg/dL) 8.3 L Phosphorus (2.5 - 4.5 mg/dL) 3.0 Magnesium (1.6 - 2.3 mg/dL) 1.8 Total Bilirubin (0.2 - 1.3 mg/dL) 3.8 H AST (17 - 59 U/L) 62 H ALT (21 - 72 U/L) 133 H C-Reactive Prot, Quant (<1.0 mg/dL) > 9.0 H C-React Prot High Sens (1.0 - 3.0 mg/L) > 15.0 H Albumin (3.5 - 5.0 g/dL) 3.1 L Hematology CBC w Diff NO MAN DIFF REQ WBC (4.8 - 10.8 /CUMM) 10.0 RBC (4.70 - 6.10 /CUMM) 4.15 L Hgb (14.0 - 18.0 G/DL) 11.7 L Hct (42 - 52 %) 35.5 L MCV (80.0 - 94.0 FL) 85.6 MCH (27.0 - 31.0 PG) 28.2 MCHC (33.0 - 37.0 G/DL) 32.9 L RDW (11.5 - 14.5 %) 15.4 H Plt Count (130 - 400 /CUMM) 211 MPV (7.4 - 10.4 FL) 8.4 Gran % (42.2 - 75.2 %) 85.9 H Lymphocytes % (20.5 - 51.1 %) 6.5 L Monocytes % (1.7 - 9.3 %) 6.6 Eosinophils % (0 - 5 %) 1.0 Basophils % (0.0 - 2.0 %) 0 Absolute Granulocytes (1.4 - 6.5 /CUMM) 8.6 H Absolute Lymphocytes (1.2 - 3.4 /CUMM) 0.6 L Absolute Monocytes (0.10 - 0.60 /CUMM) 0.7 H Absolute Eosinophils (0.0 - 0.7 /CUMM) 0.1 Absolute Basophils (0.0 - 0.2 /CUMM) 0 Assessment/Plan Assessment/Plan Studies I reviewed the CT scan from yesterday on PACS myself and shows a prominent gallbladder but not obviously thickened or inflamed also the pancreas does not appear inflamed either My impression is symptomatic gallstones. The story is typical. The current standard of care is removal of the gallbladder laparoscopically, preferably not emergently. Once they become symptomatic, gallstones can lead to complications such as cholecystitis, pancreatitis and cholangitis, which he has, despite the lack of overt fever he still has leukocytosis and gram-negative bacteremia. He seems to be improving after the ERCP but it's possibly as cholecystitis as well. I explained the nature and possibility of retained stones, and rarely, persistent postoperative diarrhea. I nida a diagram illustrating how the stones cause problems and how the anatomy and inflammation can make the surgery more difficult, sometimes requiring an open procedure, and rarely to repair a bile duct injury leading to significant morbidity and even mortality. This in our practice is exceedingly rare, but other more common risks were also discussed such as infection, injury to other surrounding structures such as bowel and blood vessels. We also discussed the potential risks, benefits and alternatives to the procedure and surgery in general, issues that included but were not limited to, anesthetic risks hemorrhage requiring transfusion, the risk of transfusion itself, infection, heart attack, stroke, . In his case in particular timing of the cholecystectomy depends on the trend in his labs and his pain right now both are positive however his creatinine appears to be climbing so we'll have to optimize him a little first. He is a little reluctant for surgery, I explained to him that the main reason is that he is having complications from gallstones which can be life-threatening and this could happen again because there are more stones and it's difficult to maintain a strict diet. Problem List: 1. CHARLENE (acute kidney injury) 2. Epigastric pain 3. Gallstone pancreatitis 4. Leukocytosis 5. Cholangitis Consult Acknowledgment - Thank you for your consult request.
--- NOTE | 2017-12-29 14:56 | Cons- Nephrology ---
General Information and HPI Consulting Request Date of Consult: 12/29/17 Requested By: Nori MUÑOZ,Guille Lima Reason for Consult: Acute kidney injury Source of Information: patient, old records Exam Limitations: no limitations History of Present Illness: This 57-year-old gentleman with a history of diabetes and hypertension presented to [facility] on the chief complaint of abdominal pain poor intake since December 25. He subsequently developed hypotension and was found to have positive blood cultures for gram-negative melani. He also received at least 1 dose of Toradol in the emergency room. The medical administration record would suggest that he also had a second dose ordered but I cannot tell if it has been given. In addition, with his ear CP, he had 2 suppositories of indomethacin ordered. It does not seem that he receive these medications. He does not recall receiving a suppository. This was ordered on the I cannot tell if it's been given. He did not receive any IV contrast with his CAT scan. He otherwise denies any previous history of kidney stones or kidney infections. He denies dysuria, polyuria but does complain of nocturia 2 which she attributed simply too bad habit. There is no family history of end-stage renal disease. Her zone on the family on dialysis will stop he related that he is terribly concerned about the prospect of needing dialysis. We discussed the fact that he is not near this at this point. Allergies/Medications Allergies: Coded Allergies: NO KNOWN ALLERGIES (NONE 12/27/17) Home Med List: Aspirin (Ecotrin*) 81 MG TABLET.DR 1 TAB PO DAILY HEART HEALTH (Reported) Atorvastatin Calcium (Lipitor) 40 MG TABLET 1 TAB PO DAILY CHOLESTEROL ( Reported) Glipizide 5 MG TABLET 1 TAB PO BID DIABETES (Reported) Hydrochlorothiazide 12.5 MG TABLET 1 TAB PO DAILY BP (Reported) Insulin Detemir (Levemir) 100 UNIT/ML VIAL 60 UNITS SC DAILY DIABETES ( Reported) Irbesartan (Avapro) 300 MG TABLET 1 TAB PO DAILY BP (Reported) Levothyroxine Sodium (Synthroid) 150 MCG TABLET 1 TAB PO DAILY THYROID ( Reported) Current Medications: Current Medications Sig/Callie Start time Last Medication Dose Route Stop Time Status Admin Atorvastatin Calcium 40 MG 1700 12/29 1700 AC PO Ceftriaxone Sodium 1,000 MG Q24H 12/29 1245 AC 05/17 IV 1339 Ceftriaxone Sodium 1,000 MG BID 12/29 1027 DC IV Dextrose/Lactated 1,000 ML Q13H 12/28 1045 AC 12/29 Ringer's IV 1338 Diphenhydramine HCl 1 BENIGNO Q8P PRN 12/29 0915 [facility] Diphenhydramine HCl 25 MG ONCE ONE 12/29 0330 DC 12/29 IV 12/29 0331 0330 Diphenhydramine HCl 25 MG ONCE ONE 12/28 2045 DC 12/28 IV 12/28 2046 2046 Heparin Sodium 5,000 UNIT Q8 12/27 2210 AC 12/29 (Porcine) SC 1339 Hydromorphone HCl 0.4 MG Q4P PRN 12/27 1745 AC IV Indomethacin 50 MG .STK-MED ONE 12/28 1621 DC NC 12/28 1622 Insulin Detemir 20 UNITS DAILY 12/29 0900 12/29 SC 0839 Insulin Human Regular 2 UNITS .STK-MED ONE 12/29 0022 DC IV 12/29 0023 Insulin Human Regular 2 UNITS .STK-MED ONE 12/28 1802 DC IV 12/28 1803 Insulin Human Regular 0 Q6 12/27 1850 AC 12/29 SC 1338 Levothyroxine Sodium 0.15 MG DAILY AC 12/29 0700 AC 12/29 PO 0611 Lidocaine 2 BENIGNO .STK-MED ONE 12/28 1621 DC TOP 12/28 1622 Magnesium Oxide 400 MG ONE ONE 12/29 0745 CAN PO 12/29 0746 Magnesium Sulfate 1 GM ONCE ONE 12/29 0800 DC 12/29 Dextrose/Water 100 ML IV 12/29 1159 0814 Metronidazole 500 MG IQ8 12/29 1600 AC N/A 1 UNIT IV Pantoprazole Sodium 40 MG DAILY 12/28 1035 AC 12/29 IV 12/30 0901 0814 Piperacillin Sod/ 4.5 GM Q6H 12/27 1845 DC 12/29 Tazobactam Sod IV 0554 Sodium Chloride 100 ML Review of Systems Review of Systems EENTM: Denies: blurred vision, double vision. Cardiovascular: Denies: chest pain, edema, orthopena, palpitations, peripheral edema, syncope. Respiratory: Denies: cough, hemoptysis, orthopnea, short of breath, sputum production. GI: Reports: abdominal pain. Denies: bloating, constipation, diarrhea, melena, nausea, bloody stool, changes in stool. Genitourinary: Denies: dysuria, frequency, hematuria, hesitation. Musculoskeletal: Reports: muscle pain (has a charley horse at night), muscle stiffness. Denies: back pain, gout, joint pain, joint swelling, neck pain. Skin: Reports: rash. Neurological/Psychological: Reports: numbness, paresthesia, tingling. Denies: anxiety, headache. Past History Travel History Traveled to [place] past 21 day No Medical History Blood Transfusion Hx: No Neurological: peripheral neuropathy (DM) EENT: diabetic retinopathy, epistaxis, status post laser therapy tickly in the left eye. Cardiovascular: hypertension, hyperlipidemia Respiratory: NONE Gastrointestinal: NONE Hepatic: NONE Renal: chronic kidney disease (DM) Musculoskeletal: chronic left heel ulcer Psychiatric: NONE Endocrine: diabetes, hypothyroidism, obesity Blood Disorders: NONE Cancer(s): NONE DOWEL PIN MAN/Reproductive: NONE Surgical History Surgical History: 2016: I&D left heel, f/b skin graft Family History Relations & Conditions If Any: MOTHER, , Age 70; Cause: Lymphoma. FHx: myocardial infarction FATHER, , Age 57; Cause: Melanoma. FHx: myocardial infarction paternal grand parents FH: diabetes mellitus SISTER ([employer]). Age 54. Psychosocial History Where Do You Live? Home Who Do You Live With? spouse (Anne-Marie), child Services at Home: None Primary Language: Kiswahili Smoking Status: Never Smoked ETOH Use: denies use Illicit Drug Use: denies illicit drug use Living Will? no Power of Slurry Blender/HCP? no Other Social History: to Anne-Marie. 2 kids (1 son & 1 dtr)- [employer]. No cigarettes, EtOH, or illicit drugs. 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 Functional Ability ADLs Independent: dressing, eating, toileting, bathing. Ambulation: independent IADLs Independent: shopping, housework, finances, food prep, telephone, transportation , medication admin. 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 ECHO Results (as available) Date of last Echo 12/08/14 EF% 65 Exam & Diagnostic Data Vital Signs and I&O Vital Signs Date Time Temp Pulse Resp B/P B/P Pulse O2 O2 Flow FiO2 Mean Ox Delivery Rate 12/29 1200 93 Room Air Room Air 12/29 0800 95 Room Air Room Air 12/29 0800 97.5 76 20 116/50 94 Room Air Room Air 12/29 0400 96 Room Air 12/29 0000 96 Room Air 12/29 0000 97.8 104 16 128/68 96 Room Air 12/28 2000 94 Nasal 2.0L Cannula 12/28 1600 94 Nasal 2.0L Cannula 12/28 1600 98.5 75 18 124/60 92 Nasal 2.0L Cannula Intake & Output 12/29 0400 12/28 1600 12/28 0400 12/27 040 Intake Total 457 443 4036 894 1000 Output Total 078 177 0087 600 Balance 443 533 3315 294 1000 Intake, IV 792 725 8497 894 1000 Intake, Oral 300 100 Number 1 0 Bowel Movements Output, Urine 200 053 1771 600 Patient 277 lb 277 lb 280 lb Weight Weight Reported by Patient Reported by Patient Measurement Method Physical Exam General Appearance: alert, awake Head: atraumatic, normal appearance Eyes: Bilateral: normal appearance, PERRL, EOMI. Neck: normal inspection, supple, trachea mid line Respiratory: normal breath sounds, chest non-tender, lungs clear Cardiovascular: regular rate/rhythm, edema, gallop, murmur Peripheral Pulses: 2+ popliteal (R), 2+ popliteal (L), 0 tibialis posterior (R), 0 tibialis posterior (L), 3+ dorsalis pedis (R), 3+ dorsalis pedis (L) Gastrointestinal: normal bowel sounds, soft, non-tender, no organomegaly, obese protuberant Back: normal inspection, no vertebral tenderness Extremities: normal inspection, his left leg has an area of deformity near the heel Neurologic/Psych: no motor/sensory deficits, awake, alert, oriented x 3, 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 Skin: intact, rash (appears to have areas of ecchy), excoriations on his right leg Lymphatic: adenopathy Results Pertinent Lab Results: Laboratory Tests 12/29 12/28 0345 0425 Chemistry Sodium (137 - 145 mmol/L) 145 142 Potassium (3.5 - 5.1 mmol/L) 4.4 5.2 H Chloride (98 - 107 mmol/L) 107 108 H Carbon Dioxide (22 - 30 mmol/L) 22 24 Anion Gap (5 - 16) 16 10 BUN (9 - 20 mg/dL) 50 H 43 H Creatinine (0.7 - 1.2 mg/dL) 3.5 H 2.5 H Estimated GFR (>60 ml/min) 18 L 27 L BUN/Creatinine Ratio (7 - 25 %) 17.2 Glucose (65 - 99 mg/dL) 93 Calcium (8.4 - 10.2 mg/dL) 8.3 L Phosphorus (2.5 - 4.5 mg/dL) 3.0 Magnesium (1.6 - 2.3 mg/dL) 1.8 Total Bilirubin (0.2 - 1.3 mg/dL) 3.8 H 4.2 H Direct Bilirubin (< 0.4 mg/dL) 3.4 H AST (17 - 59 U/L) 62 H 94 H ALT (21 - 72 U/L) 133 H 159 H Alkaline Phosphatase (< 127 U/L) 238 H C-Reactive Prot, Quant (<1.0 mg/dL) > 9.0 H C-React Prot High Sens (1.0 - 3.0 mg/L) > 15.0 H Total Protein (6.3 - 8.2 g/dL) 5.8 L Albumin (3.5 - 5.0 g/dL) 3.1 L 2.8 L Amylase (30 - 110 U/L) 335 H 1030 H Lipase (23 - 300 U/L) 3126 H 6978 H TSH (0.270 - 4.200 uIU/mL) 0.485 Hematology CBC w Diff NO MAN DIFF REQ MAN DIFF ORDERED WBC (4.8 - 10.8 /CUMM) 10.0 15.1 H RBC (4.70 - 6.10 /CUMM) 4.15 L 3.91 L Hgb (14.0 - 18.0 G/DL) 11.7 L 11.1 L Hct (42 - 52 %) 35.5 L 33.5 L MCV (80.0 - 94.0 FL) 85.6 85.5 MCH (27.0 - 31.0 PG) 28.2 28.5 MCHC (33.0 - 37.0 G/DL) 32.9 L 33.3 RDW (11.5 - 14.5 %) 15.4 H 15.1 H Plt Count (130 - 400 /CUMM) 211 181 MPV (7.4 - 10.4 FL) 8.4 8.2 Gran % (42.2 - 75.2 %) 85.9 H 90.2 H Lymphocytes % (20.5 - 51.1 %) 6.5 L 2.9 L Monocytes % (1.7 - 9.3 %) 6.6 6.8 Eosinophils % (0 - 5 %) 1.0 0.1 Basophils % (0.0 - 2.0 %) 0 0 Absolute Granulocytes (1.4 - 6.5 /CUMM) 8.6 H 13.6 H Segmented Neutrophils (42.2 - 75.2 %) 77 H Band Neutrophils (0.0 - 5.0 %) 6 H Absolute Lymphocytes (1.2 - 3.4 /CUMM) 0.6 L 0.4 L Lymphocytes (20.5 - 51.1 %) 5 L Monocytes (1.7 - 9.3 %) 10 H Absolute Monocytes (0.10 - 0.60 /CUMM) 0.7 H 1.0 H Absolute Eosinophils (0.0 - 0.7 /CUMM) 0.1 0 Absolute Basophils (0.0 - 0.2 /CUMM) 0 0 Metamyelocytes (0.0 - 1.0 %) 2 H Platelet Estimate (ADEQUATE) ADEQUATE Polychromasia 1+ Poikilocytosis 1+ Ovalocytes 1+ Other Body Source Fld Total RBCs Counted (%) 100 12/27 12/27 12/27 2240 1940 1856 Chemistry Lactic Acid (0.7 - 2.1 mmol/L) 1.6 2.4 H Coagulation PT (9.4 - 12.5 SEC) 14.1 H INR (0.90 - 1.17) 1.29 H APTT (25 - 37 SEC) 29 12/27 12/27 1828 1052 Chemistry Sodium (137 - 145 mmol/L) 142 Potassium (3.5 - 5.1 mmol/L) 4.6 Chloride (98 - 107 mmol/L) 104 Carbon Dioxide (22 - 30 mmol/L) 24 Anion Gap (5 - 16) 13 BUN (9 - 20 mg/dL) 40 H Creatinine (0.7 - 1.2 mg/dL) 1.8 H Estimated GFR (>60 ml/min) 39 L BUN/Creatinine Ratio (7 - 25 %) 22.2 Glucose (65 - 99 mg/dL) 230 H Calcium (8.4 - 10.2 mg/dL) 9.1 Total Bilirubin (0.2 - 1.3 mg/dL) 4.2 H AST (17 - 59 U/L) 136 H ALT (21 - 72 U/L) 215 H Alkaline Phosphatase (< 127 U/L) 334 H Lactate Dehydrogenase (313 - 618 U/L) 581 Troponin I (<0.11 ng/ml) < 0.01 Total Protein (6.3 - 8.2 g/dL) 7.3 Albumin (3.5 - 5.0 g/dL) 3.8 Globulin (1.9 - 4.2 gm/dL) 3.5 Albumin/Globulin Ratio (1.1 - 2.2 %) 1.1 Triglycerides (<150 mg/dL) 103 Cholesterol (< 200 MG/DL) 118 LDL Cholesterol, Calc (65 - 129 mg/dL) 68 HDL Cholesterol (40 - 60 mg/dL) 30 L Cholesterol/HDL Ratio (0.00 - 4.88 %) 4 Amylase (30 - 110 U/L) 2093 H Lipase (23 - 300 U/L) > 53843 H Hematology CBC w Diff NO MAN DIFF REQ WBC (4.8 - 10.8 /CUMM) 9.3 RBC (4.70 - 6.10 /CUMM) 5.08 Hgb (14.0 - 18.0 G/DL) 14.3 Hct (42 - 52 %) 42.1 MCV (80.0 - 94.0 FL) 82.9 MCH (27.0 - 31.0 PG) 28.2 MCHC (33.0 - 37.0 G/DL) 34.1 RDW (11.5 - 14.5 %) 14.5 Plt Count (130 - 400 /CUMM) 241 MPV (7.4 - 10.4 FL) 8.0 Gran % (42.2 - 75.2 %) 87.8 H Lymphocytes % (20.5 - 51.1 %) 7.3 L Monocytes % (1.7 - 9.3 %) 4.8 Eosinophils % (0 - 5 %) 0 Basophils % (0.0 - 2.0 %) 0.1 Absolute Granulocytes (1.4 - 6.5 /CUMM) 8.1 H Absolute Lymphocytes (1.2 - 3.4 /CUMM) 0.7 L Absolute Monocytes (0.10 - 0.60 /CUMM) 0.4 Absolute Eosinophils (0.0 - 0.7 /CUMM) 0 Absolute Basophils (0.0 - 0.2 /CUMM) 0 Serology Hepatitis A IgM Ab (NONREACTIVE) NONREACTIVE Hep Bs Antigen (NONREACTIVE) NONREACTIVE Hep B Core IgM Ab Conf (NONREACTIVE) NONREACTIVE Hepatitis C Antibody (NONREACTIVE) NONREACTIVE Urines Urinalysis MOD H Urine Color (YEL,AMB,STR) YEL Urine Clarity (CLEAR) HAZY H Urine pH (5.0 - 8.0) 6.0 Ur Specific [place] (1.001 - 1.035) 1.020 Urine Protein (NEG,<30 MG/DL) 100 H Urine Ketones (NEG) NEG Urine Nitrite (NEG) NEG Urine Bilirubin (NEG) SMALL H Urine Urobilinogen (0.1 - 1.0 EU/dl) 0.2 Ur Leukocyte Esterase (NEG) NEG Ur Microscopic SEDIMENT EXAMINED Urine RBC (0 - 5 /HPF) 3-5 Urine WBC (0 - 2 /HPF) 3-5 H Granular Casts (NONE /LPF) FEW H Urine Hemoglobin (NEG) MOD H Urine Glucose (N MG/DL) NEG Imaging/Other Studies: PATIENT: MONIQUE LAWRENCE JR PRESENT AGE: 57 PATIENT ACCOUNT NO: [id number] : 61 LOCATION: [facility] ORDERING PHYSICIAN: Emmanuel Whitfield DO SERVICE DATE: 12/27/17 EXAM TYPE: CAT - CT ABD & PELVIS W/O IV CONTRAS EXAMINATION: CT ABDOMEN AND PELVIS WITHOUT CONTRAST CLINICAL INFORMATION: Abdominal pain. Rule out ureterolithiasis. COMPARISON: Ultrasound dated 11/10/2015 TECHNIQUE: Multidetector volumetric imaging was performed from the superior aspect of the liver through the pubic symphysis. Sagittal and coronal reformatted images were obtained on the technologist's workstation. DLP: 1547 mGy-cm FINDINGS: LUNG BASES: Dependent atelectasis is present in both lungs. Trace pericardial fluid. Heart is normal in size. LIVER, GALLBLADDER, AND BILIARY TREE: The liver is normal in size, shape, and attenuation. No focal hepatic lesion or biliary ductal dilatation is present. Dependent gallstones in the gallbladder measure 1 and. The gallbladder is borderline hydropic (4.5 cm). Bladder wall is normal in thickness. No surrounding fat stranding. Common bile duct measures 1 cm in diameter, mildly dilated. PANCREAS: Mild fatty replacement. No inflammatory changes or ductal dilatation. No focal lesions. SPLEEN: Unremarkable. ADRENAL GLANDS: Unremarkable. KIDNEYS AND URETERS: There is bilateral perinephric stranding. There is a hypoattenuating 3.3 cm lesion at the lower pole left kidney which has a density of 11 Hounsfield units, most compatible with a simple cyst. This is incompletely evaluated without contrast. No additional renal lesions are identified. Kidneys are normal in size and cortical thickness. No nephrolithiasis or ureterolithiasis. No hydronephrosis or hydroureter. BLADDER: Full and unremarkable. GASTROINTESTINAL TRACT: Stomach, small bowel, and colon are normal in caliber. No bowel wall thickening or surrounding inflammatory changes. Appendix is normal. No intraperitoneal free fluid or free air. ABDOMINAL WALL: Small fat-containing umbilical hernia. No bowel involvement. LYMPH NODES: There is a borderline enlarged 1.1 cm portacaval node (image 37/115 of series 2). A few smaller, borderline enlarged periportal nodules are identified in this region. Other retroperitoneal lymph nodes below the pelvic lymph nodes are normal in size. VASCULAR: Calcific atherosclerosis is present in the abdominal aorta and iliac arteries. PELVIC VISCERA: Prostate gland is unremarkable OSSEOUS STRUCTURES: A hemangioma is present within the T12 vertebral body. There is mild degenerative disc disease in the thoracic spine. Mild degenerative arthritis is present in the SI joints and hip joints. No acute fractures are identified. IMPRESSION: 1. Cholelithiasis. No CT findings of acute cholecystitis. 2. Bilateral perinephric stranding. No nephrolithiasis, ureterolithiasis, or other findings of obstructive uropathy. 3. A few borderline enlarged periportal lymph nodes. 4. A 3.3 cm water density cystic lesion at the lower pole left kidney. This is incompletely evaluated without intravenous contrast material. It was not seen on prior ultrasound. Consider follow-up renal protocol CT with and without contrast or MRI with and without contrast for further evaluation. 5. Fat-containing umbilical hernia. DICTATED BY: Olegario Kennedy MD DATE/TIME DICTATED:12/27/171513 RN CLINICAL APPEALS:RENNY DATE/TIME TRANSCRIBED:05/15/18 / 1514 CONFIDENTIAL, DO NOT COPY WITHOUT APPROPRIATE AUTHORIZATION. <Electronically signed in Other Vendor System> SIGNED BY: Olegario Kennedy MD 12/27/17 9864 Assessment/Plan Assessment/Recommendations Assessment: 1. Acute kidney injury. He presents on the with abdominal pain, jaundice coupled with an episode of hypotension and was found to have gram-negative rods in his bloodstream. His serum creatinine upon admission was 1.8. This was on the . He had not been well since noon on the . He was also on an SANDOVAL inhibitor as well as an angiotensin receptor amos. He took this faithfully before coming to the hospital with his jaundice and cholangitis. In addition, medical record would indicate that he received 1 dose of Toradol although it seems that there was 2 doses ordered. In addition, him hypotensive. Although the hypotension was attributed to morphine administration, the more likely culprit would be the gram-negative bacteremia. He is nonoliguric. He is made so far today 600 mL. With regards to the administration of indomethacin, I see it ordered but there is no mention as to the last time that it had been given. It may be helpful to obtain a spot urine sodium and creatinine to assess for her fractional excretion of sodium. 2. Chronic kidney disease? His serum creatinine as an outpatient has been ranging 1.4-1.8 or specifically not as an outpatient but certainly here. This may of been during episodes of acute hospitalization with some other process potentially affecting the kidney. It would be helpful to obtain from his primary care physician what precisely his kidney function is been when he is not at [facility]. He revealed that he is terrified at the thought of dialysis. He almost became tearful. I explained that either in the acute scenario with a chronic dialysis is offered to replace kidney function or inguinal the person is becoming uremic. In addition, rubs of chronic dialysis was explained as replacing kidney function so that the person about their usual business. It may be helpful to obtain a random or spot protein creatinine ratio is in estimate of proteinuria. The caveat on that during this hospital stay is the fact that he is in the midst of acute kidney injury. If he has chronic kidney disease and will be on the basis of diabetic nephropathy. He does have a 15 year history of diabetes coupled with a history of proliferative diabetic retinopathy. 3. Diabetes mellitus 4. Obesity. He needs to be encouraged to lose weight. 5. Hypertension. This was diagnosis roughly the same time that he was found to have diabetes. 6. Gram-negative sepsis 7. Cholangitis having passed a common bile duct stone. It is been recommended that he undergo a cholecystectomy. This is reasonable to do so. However, the issue of timing now arises given the fact he has acute kidney injury. 8. Pruritus. He was hyperbilirubinemia And now has acute kidney injury. Recommendations: 1. Continue with strict intakes and outputs and daily weights 2. Would suggest obtaining the outpatient records from Dr. Velásquez specifically with regards to previous serum creatinines 3. Clearly avoid further nephrotoxins 4. Would continue with daily BMPs 5. Would send a spot or random urine protein and creatinine with a protein creatinine ratio.
[2017-12-29 16:00] VITALS: BP 144/70
[2017-12-30] VITALS: BP 138/72
[2017-12-30 05:23] LABS: ABSOLUTE BASOPHIL COUNT 0 /CUMM (0.0-0.2); ABSOLUTE EOSINOPHIL COUNT 0.1 /CUMM (0.0-0.7); ABSOLUTE GRANULOCYTE CT 5.4 /CUMM (1.4-6.5); ABSOLUTE LYMPH COUNT 0.5 /CUMM (1.2-3.4); ABSOLUTE MONOCYTE COUNT 0.5 /CUMM (0.10-0.60); BASOPHIL % 0.2 % (0.0-2.0); EOSINOPHIL % 1.7 % (0-5); GRANULOCYTE % 83.4 % (42.2-75.2); HEMATOCRIT 33.8 % (42-52); MEAN CORPUSCULAR HGB 28.1 PG (27.0-31.0); MEAN CORPUSCULAR HGB CONC 33.5 G/DL (33.0-37.0); MEAN CORPUSCULAR VOLUME 83.8 FL (80.0-94.0); MEAN PLATELET VOLUME 8.3 FL (7.4-10.4); PLATELET COUNT 213 /CUMM (130-400); RBC DISTRIBUTION WIDTH 15.9 % (11.5-14.5); RED BLOOD CELL CT 4.03 /CUMM (4.70-6.10); WHITE BLOOD CELL COUNT 6.5 /CUMM (4.8-10.8)
[2017-12-30 05:26] LABS: PT 12.4 SEC (9.4-12.5)
--- NOTE | 2017-12-30 07:39 | PN- Resident CRCU ---
Subjective HPI/CRCU Issues: No acute evnts overnight. Episode of dry heaves this AM but patient denied the anti-emetic. Awaiting for surgery to remove gallbladder. Benadryl cream has helped with itching. 24 Hour Events: Tmax 98.9 Heart rate 7082 Respiratory rate 1728 Blood pressure 318562/6580 9398 percent oxygen saturation on room air In 3147 Output 2100 Objective Vital Signs & I&O Last 8 Hrs of Vitals and I&O: Laboratory Tests 12/30/17 0440: Anion Gap 15, Estimated GFR 26 L, Glucose 140 H, Calcium 8.1 L, Phosphorus 2.7, Magnesium 1.9, Total Bilirubin 3.2 H, Direct Bilirubin 2.6 H, AST 46, ALT 93 H, Alkaline Phosphatase 276 H, Total Protein 5.5 L, Albumin 2.7 L, Amylase 97, Lipase 1076 H, PT 12.4, INR 1.14, CBC w Diff NO MAN DIFF REQ, RBC 4.03 L, MCV 83.8, MCH 28.1, MCHC 33.5, RDW 15.9 H, MPV 8.3, Gran % 83.4 H, Lymphocytes % 7.3 L, Monocytes % 7.4, Eosinophils % 1.7, Basophils % 0.2, Absolute Granulocytes 5.4, Absolute Lymphocytes 0.5 L, Absolute Monocytes 0.5, Absolute Eosinophils 0.1, Absolute Basophils 0 12/29/17 1645: Ur Random Creatinine Cancelled, U Random Total Protein Cancelled 12/29/17 1607: Urine Total Volume Cancelled, Ur Total Protein 24 Hr Cancelled 12/29/17 1530: Ur Random Creatinine 89.7, U Random Total Protein 69 H, Ur Random Sodium 70, Ur Random Potassium 26.9, Protein/Creatinin Ratio 0.7 H, Fraction Sodium Excret 1.9 H Exam General Appearance: no apparent distress, alert, awake Cardiovascular: regular rate/rhythm Gastrointestinal: soft, non-tender, decresed bowel sounds Extremities: 3+ L LE edema, 2+ RLE edema Skin: diffuse erythematous circular nonblanching rash of diffuse abd, multiple scratch goodson throughout body Current Medications: Current Medications Sig/Callie Start time Last Medication Dose Route Stop Time Status Admin Atorvastatin Calcium 40 MG 1700 12/29 1700 AC 12/29 PO 1619 Ceftriaxone Sodium 1,000 MG Q24H 12/29 1245 AC 12/29 IV 1339 Ceftriaxone Sodium 1,000 MG BID 12/29 1027 DC IV Dextrose/Lactated 1,000 ML Q13H 12/28 1045 12/30 Ringer's IV 0129 Diphenhydramine HCl 1 BENIGNO Q8P PRN 12/29 0915 AC TOP Heparin Sodium 5,000 UNIT Q8 12/27 2210 12/29 (Porcine) SC 2144 Hydromorphone HCl 0.4 MG Q4P PRN 12/27 1745 IV Insulin Detemir 20 UNITS DAILY 12/29 0900 12/30 SC 0917 Insulin Human Regular 2 UNITS .STK-MED ONE 12/29 2336 DC IV 12/29 2337 Insulin Human Regular 2 UNITS .STK-MED ONE 12/29 1822 DC IV 12/29 1823 Insulin Human Regular 4 UNITS .STK-MED ONE 12/29 1254 DC IV 12/29 1255 Insulin Human Regular 0 Q6 12/27 1850 12/30 SC 0604 Levothyroxine Sodium 0.15 MG DAILY AC 12/29 0700 12/29 PO 0611 Magnesium Sulfate 1 GM ONCE ONE 12/29 0800 GA 12/29 Dextrose/Water 100 ML IV 12/29 1159 0814 Metronidazole 500 MG IQ8 12/29 1600 12/30 N/A 1 UNIT IV 0909 Ondansetron HCl 4 MG ONCE ONE 12/30 0700 DC IV 12/30 0701 Pantoprazole Sodium 40 MG DAILY 12/28 1035 DC 12/30 IV 12/30 0901 0910 Impression/Plan Impression/Problem List Impression: A: 57 year old male with a PMH significant for hypertension, hypothyroidism, HLD, diabetes, GERD, that presenting with complaints 1.5 days history of abdominal pain, nausea and vomiting, jaundice, generalized urticaria, malaise most likely 2/2 gallstone pancreatitis with possible ascending cholangitis and hypotension after morphine administration in the ED: #Gallstone pancreatitis with Klebsiella bacteremia and cholangitis The patient states that he has had 1.5 days of abd, pain N/V, jaundice, and itching. He was given IV NS, Zofran, morphine, & Toradol in the ER. The patient was previously on Trulicity which can cause pancreatitis but was self discontinued a week ago due to rash. Initial CT: Cholelithiasis with no acute cholecystitis, CBD measures 1 cm in diameter, mildly dilated, bilateral perinephric stranding, borderline enlarged periportal lymph nodes. Initial lactic acidosis has resolved, normal triglycerides and cholesterol but low HDL Mild fever to Tmax 99.5 with improving WBC 9.3 -> 15.1 -> 10 Amylase 2093 -> 1030 -> 335 (post ERCP) -> 97 Lipase greater than 10,000 -> 6978 -> 6978 (post-ERCP) -> 1076 Tbili 4.2 -> 3.2, Direct 3.4 -> 2.6 AST 136 -> 94 -> 62 -> 46 ALT 215 -> 159 -> 133 -> 93 ALP 334 -> 238 -> 276 CRP >9.0 Hepatits viral panel negative CXR: Low lung volumes. Bibasilar atelectasis and bronchovascular crowding. Small effusions cannot be entirely excluded. Patient had ERCP done yesterday which revealed findings consistent of CBD stone which has passed and cholangitis. His home medications include atorvastatin and HCTZ are also know to cause pancreatitis, irbesartan can cause hepatitis. -Plan for surgery today -BC positive for Klebsiella pneumonia. cont empiric ceftriaxone/metronidazole -cont D5LR @75. Pt resuscitated with 2LNS and 1L+ LR. -Continue atorvastatin as it was unlikely the cause of his pancreatitis -IV PPI x3 days -f/u GI recs: daily lfts. they are signing off #itching -itching most likely due to bile salt accumulation. -Currently improved with Benadryl cream #CHARLENE CKD baseline 1.8 Current Cr 3.5 -> 2.6 Possibly secondary to indomethacin or ketorolac doses vs sepsis Urine lytes elevated total protein, elevated protein to creatinine ratio, and Fena -cont IV fluids @ 75 -hold nsaids and hctz #Hypotensive episode Initial BP was 196/88 and dropped to 82-92/50 after administration of morphine. Improved with fluids -cont to monitor, holding irbesartan and hctz #Renal cyst Initial CT revealed 3.3 cm water density cystic lesion at the lower pole left kidney. This is incompletely evaluated without intravenous contrast material. It was not seen on prior ultrasound. - Consider follow-up renal protocol CT with and without contrast or MRI with and without contrast for further evaluation #HLD takes atorvastatin at home -restarted [email or web address] ercp revealed findings more consistent of gallstone pancreaitis. #diabetes Was taking trulicity @ home but stopped due to rash. -Continue reduced dose Levemir and novolog sliding scale -Increase his Levemir slowly to home dose after he begins eating them -holding glipizide #hypothyroidism -cont levothyroxine #Housekeeping NPO FULL CODE DVT prophylaxis - SC heparin Problem List: 1. Gram-negative bacteremia 2. Cholangitis Pain Ratin Tomorrow's Labs & Rationales: cbc icu bundle Plan DVT/Prophylaxis: subq heparin
[2017-12-30 08:00] VITALS: BP 136/80
--- NOTE | 2017-12-30 09:06 | PN- CRCU ---
Subjective HPI/Critical Care Issues: Doing well creat improving To the OR today D/w Surg Itching has improved Objective Current Medications: Current Medications Sig/Callie Start time Last Medication Dose Route Stop Time Status Admin Atorvastatin Calcium 40 MG 1700 12/29 1700 12/29 PO 1619 Ceftriaxone Sodium 1,000 MG Q24H 12/29 1245 12/29 IV 1339 Ceftriaxone Sodium 1,000 MG BID 12/29 1027 DC IV Dextrose/Lactated 1,000 ML Q13H 12/28 1045 12/30 Ringer's IV 0129 Diphenhydramine HCl 1 BENIGNO Q8P PRN 12/29 0915 AC TOP Heparin Sodium 5,000 UNIT Q8 12/27 2210 12/29 (Porcine) SC 2144 Hydromorphone HCl 0.4 MG Q4P PRN 12/27 1745 IV Insulin Detemir 20 UNITS DAILY 12/29 0900 12/29 SC 0839 Insulin Human Regular 2 UNITS .STK-MED ONE 12/29 2336 DC IV 12/29 2337 Insulin Human Regular 2 UNITS .STK-MED ONE 12/29 1822 DC IV 12/29 1823 Insulin Human Regular 4 UNITS .STK-MED ONE 12/29 1254 DC IV 12/29 1255 Insulin Human Regular 0 Q6 12/27 1850 12/30 SC 0604 Levothyroxine Sodium 0.15 MG DAILY 12/29 0700 12/29 PO 0611 Magnesium Sulfate 1 GM ONCE ONE 12/29 0800 DC 12/29 Dextrose/Water 100 ML IV 12/29 1159 0814 Metronidazole 500 MG IQ8 12/29 1600 12/29 N/A 1 UNIT IV 2328 Ondansetron HCl 4 MG ONCE ONE 12/30 0700 DC IV 12/30 0701 Pantoprazole Sodium 40 MG DAILY 12/28 1035 12/29 IV 12/30 0901 0814 Piperacillin Sod/ 4.5 GM Q6H 12/27 1845 AZ 12/29 Tazobactam Sod IV 0554 Sodium Chloride 100 ML Vital Signs & I&O Last 24 Hrs of Vitals and I&O: Vital Signs Date Time Temp Pulse Resp B/P B/P Pulse O2 O2 Flow FiO2 Mean Ox Delivery Rate 12/30 0000 98.7 72 18 138/72 97 Room Air 12/29 1600 95 Room Air Room Air 12/29 1600 98.5 70 20 144/70 94 Room Air Room Air 12/29 1200 93 Room Air Room Air Intake & Output 12/30 1600 12/30 0800 12/30 0000 Intake Total 576 1027 Output Total 650 650 Balance -74 377 Intake, IV 576 547 Intake, Oral 480 Output, Urine 650 650 Laboratory Tests 12/30 12/29 12/29 0440 1645 1607 Chemistry Sodium (137 - 145 mmol/L) 143 Potassium (3.5 - 5.1 mmol/L) 4.4 Chloride (98 - 107 mmol/L) 109 H Carbon Dioxide (22 - 30 mmol/L) 20 L Anion Gap (5 - 16) 15 BUN (9 - 20 mg/dL) 41 H Creatinine (0.7 - 1.2 mg/dL) 2.6 H Estimated GFR (>60 ml/min) 26 L Glucose (65 - 99 mg/dL) 140 H Calcium (8.4 - 10.2 mg/dL) 8.1 L Phosphorus (2.5 - 4.5 mg/dL) 2.7 Magnesium (1.6 - 2.3 mg/dL) 1.9 Total Bilirubin (0.2 - 1.3 mg/dL) 3.2 H Direct Bilirubin (< 0.4 mg/dL) 2.6 H AST (17 - 59 U/L) 46 ALT (21 - 72 U/L) 93 H Alkaline Phosphatase (< 127 U/L) 276 H Total Protein (6.3 - 8.2 g/dL) 5.5 L Albumin (3.5 - 5.0 g/dL) 2.7 L Amylase (30 - 110 U/L) 97 Lipase (23 - 300 U/L) 1076 H Coagulation PT (9.4 - 12.5 SEC) 12.4 INR (0.90 - 1.17) 1.14 Hematology CBC w Diff NO MAN DIFF REQ WBC (4.8 - 10.8 /CUMM) 6.5 RBC (4.70 - 6.10 /CUMM) 4.03 L Hgb (14.0 - 18.0 G/DL) 11.3 L Hct (42 - 52 %) 33.8 L MCV (80.0 - 94.0 FL) 83.8 MCH (27.0 - 31.0 PG) 28.1 MCHC (33.0 - 37.0 G/DL) 33.5 RDW (11.5 - 14.5 %) 15.9 H Plt Count (130 - 400 /CUMM) 213 MPV (7.4 - 10.4 FL) 8.3 Gran % (42.2 - 75.2 %) 83.4 H Lymphocytes % (20.5 - 51.1 %) 7.3 L Monocytes % (1.7 - 9.3 %) 7.4 Eosinophils % (0 - 5 %) 1.7 Basophils % (0.0 - 2.0 %) 0.2 Absolute Granulocytes (1.4 - 6.5 /CUMM) 5.4 Absolute Lymphocytes (1.2 - 3.4 /CUMM) 0.5 L Absolute Monocytes (0.10 - 0.60 /CUMM) 0.5 Absolute Eosinophils (0.0 - 0.7 /CUMM) 0.1 Absolute Basophils (0.0 - 0.2 /CUMM) 0 Urines Ur Random Creatinine Cancelled U Random Total Protein Cancelled Urine Total Volume Cancelled Ur Total Protein 24 Hr Cancelled 12/29 12/29 1530 0345 Chemistry Sodium (137 - 145 mmol/L) 145 Potassium (3.5 - 5.1 mmol/L) 4.4 Chloride (98 - 107 mmol/L) 107 Carbon Dioxide (22 - 30 mmol/L) 22 Anion Gap (5 - 16) 16 BUN (9 - 20 mg/dL) 50 H Creatinine (0.7 - 1.2 mg/dL) 3.5 H Estimated GFR (>60 ml/min) 18 L Glucose (65 - 99 mg/dL) 93 Calcium (8.4 - 10.2 mg/dL) 8.3 L Phosphorus (2.5 - 4.5 mg/dL) 3.0 Magnesium (1.6 - 2.3 mg/dL) 1.8 Total Bilirubin (0.2 - 1.3 mg/dL) 3.8 H AST (17 - 59 U/L) 62 H ALT (21 - 72 U/L) 133 H C-Reactive Prot, Quant (<1.0 mg/dL) > 9.0 H C-React Prot High Sens (1.0 - 3.0 mg/L) > 15.0 H Albumin (3.5 - 5.0 g/dL) 3.1 L Amylase (30 - 110 U/L) 335 H Lipase (23 - 300 U/L) 3126 H Hematology CBC w Diff NO MAN DIFF REQ WBC (4.8 - 10.8 /CUMM) 10.0 RBC (4.70 - 6.10 /CUMM) 4.15 L Hgb (14.0 - 18.0 G/DL) 11.7 L Hct (42 - 52 %) 35.5 L MCV (80.0 - 94.0 FL) 85.6 MCH (27.0 - 31.0 PG) 28.2 MCHC (33.0 - 37.0 G/DL) 32.9 L RDW (11.5 - 14.5 %) 15.4 H Plt Count (130 - 400 /CUMM) 211 MPV (7.4 - 10.4 FL) 8.4 Gran % (42.2 - 75.2 %) 85.9 H Lymphocytes % (20.5 - 51.1 %) 6.5 L Monocytes % (1.7 - 9.3 %) 6.6 Eosinophils % (0 - 5 %) 1.0 Basophils % (0.0 - 2.0 %) 0 Absolute Granulocytes (1.4 - 6.5 /CUMM) 8.6 H Absolute Lymphocytes (1.2 - 3.4 /CUMM) 0.6 L Absolute Monocytes (0.10 - 0.60 /CUMM) 0.7 H Absolute Eosinophils (0.0 - 0.7 /CUMM) 0.1 Absolute Basophils (0.0 - 0.2 /CUMM) 0 Urines Ur Random Creatinine (mg/dL) 89.7 U Random Total Protein (0 - 12 mg/dL) 69 H Ur Random Sodium (30 - 90 mmol/L) 70 Ur Random Potassium (mmol/L) 26.9 Protein/Creatinin Ratio (< 0.2) 0.7 H Fraction Sodium Excret (<1% %) 1.9 H Microbiology Date/Time Procedure - Status Source Growth 12/27 1929 Surveillance Culture - COMP UPPER RESP 12/28 1855 Blood Culture - COMP BLOOD KLEBSIELLA PNEUMONIAE 12/27 1849 Blood Culture - COMP BLOOD KLEBSIELLA PNEUMONIAE 12/28 1827 Urine Culture - COMP URINE ROUT 12/27 1813 Surveillance Culture - CAN GI Cancelled: SPECIMEN NOT RECEIVED IN LABORATORY Impression/Plan Impression/Plan Impression/Plan: Still has ongoing itching everardo eomi Chest mild crackles abd soft no edema Still has a rash on his abdominal wall This is a gentleman with significant diabetes, morbid obesity, hypertension, hyperlipidemia, diabetes with diabetic neuropathy and previous diabetic foot ulcer, came into the hospital with fever or severe abdominal pain obstructive jaundice with clinical signs and symptoms suggestive of biliary colic with obstructive jaundice and pancreatitis. He now has * Slowly resolving Klebsiella sepsis due to biliary sepsis status post ERCP- and there was no evidence of choledocholithiasis and patient seems to have passed the stone. Need Cholecystectomy * Pancreatitis related to gallstone pancreatitis which is slowly improving * Chronic kidney disease with acute kidney injury with diabetes. Patient was on NSAIDs and creatinine is now down to 2.6 * Renal cyst which needs follow-up * Diabetes, on insulin. Patient was on trulicity which he has stopped, due to rash now also has pancreatitis RECOMMENDATION/PLAN IVF maintainence For surg Cont Ceftriaxone and Flagyl tomorrow Continue insulin 20 units and slowly increase and subcutaneous insulin Heparin subcutaneous Hold angiotensin receptor blockers, hold glipizide. Cont Lipitor and Synthroid
--- NOTE | 2017-12-30 09:53 | PN- Nephrology ---
Assessment/Plan Nephrology Assessment: 1. Acute kidney injury. Likely related to bind depletion, here sepsis with positive blood cultures and the menstruation of Toradol. Serum creatinine is 2.6 today 2. Chronic kidney disease 3. Diabetes mellitus 4. Obesity. He needs to be encouraged to lose weight. 5. Hypertension. This was diagnosis roughly the same time that he was found to have diabetes. 6. Gram-negative sepsis 7. Cholangitis having passed a common bile duct stone. It is been recommended that he undergo a cholecystectomy. This is reasonable to do so. However, the issue of timing now arises given the fact he has acute kidney injury. 8. Pruritus. He was hyperbilirubinemia And now has acute kidney injury. Suggestion: 1. Avoid known nephrotoxins. 2. Continue with fluids 3. Avoid hypotension. 4. Would weigh each and every day as well as after the surgery. Subjective Subjective: Patient with some abdominal discomfort as well as nausea stop however this is mild. He tells me he is going for cholecystectomy today. Objective Vital Signs and I&Os Vital Signs Date Time Temp Pulse Resp B/P B/P Pulse O2 O2 Flow FiO2 Mean Ox Delivery Rate 12/30 0800 98.1 58 76 136/80 95 Room Air 12/30 0000 98.7 72 18 138/72 97 Room Air 12/29 1600 95 Room Air Room Air 12/29 1600 98.5 70 20 144/70 94 Room Air Room Air 12/29 1200 93 Room Air Room Air Intake & Output 12/30 1600 18 0400 12/29 1600 12/29 0400 12/28 1600 12/28 0400 Intake Total 576 1027 2289 900 3232 894 Output Total 826 091 7789 300 1000 600 Balance -74 377 7898 744 5371 294 Intake, IV 294 938 6651 600 3132 894 Intake, Oral 480 200 300 100 Number 1 0 Bowel Movements Output, Urine 452 116 8021 300 1000 600 Patient 277 lb 277 lb Weight Weight Reported by Patient Measurement Method Physical Exam: General Appearance: alert, awake Head: atraumatic, normal appearance Eyes: Bilateral: normal appearance, PERRL, EOMI. Neck: normal inspection, supple, trachea mid line Respiratory: normal breath sounds, chest non-tender, lungs clear Cardiovascular: regular rate/rhythm, edema, gallop, murmur Gastrointestinal: normal bowel sounds, soft, non-tender, no organomegaly, obese protuberant Back: normal inspection, no vertebral tenderness Extremities: normal inspection, his left leg has an area of deformity near the heel Neurologic/Psych: no motor/sensory deficits, awake, alert, oriented x 3, Skin: intact, rash (appears to have areas of ecchymosis), excoriations on his right leg Lymphatic: adenopathy Current Medications: Current Medications Sig/Callie Start time Last Medication Dose Route Stop Time Status Admin Atorvastatin Calcium 40 MG 1700 12/29 1700 12/29 PO 1619 Ceftriaxone Sodium 1,000 MG Q24H 12/29 1245 AC 12/29 IV 1339 Ceftriaxone Sodium 1,000 MG BID 12/29 1027 DC IV Dextrose/Lactated 1,000 ML Q13H 12/28 1045 12/30 Ringer's IV 0129 Diphenhydramine HCl 1 BENIGNO Q8P PRN 12/29 0915 AC TOP Heparin Sodium 5,000 UNIT Q8 12/27 2210 12/29 (Porcine) SC 2144 Hydromorphone HCl 0.4 MG Q4P PRN 12/27 1745 IV Insulin Detemir 20 UNITS DAILY 12/29 0900 12/30 SC 0917 Insulin Human Regular 2 UNITS .STK-MED ONE 12/29 2336 DC IV 12/29 2337 Insulin Human Regular 2 UNITS .STK-MED ONE 12/29 1822 DC IV 12/29 1823 Insulin Human Regular 4 UNITS .STK-MED ONE 12/29 1254 DC IV 12/29 1255 Insulin Human Regular 0 Q6 12/27 1850 12/30 SC 0604 Levothyroxine Sodium 0.15 MG DAILY AC 12/29 0700 12/29 PO 0611 Magnesium Sulfate 1 GM ONCE ONE 12/29 0800 DC 12/29 Dextrose/Water 100 ML IV 12/29 1159 0814 Metronidazole 500 MG IQ8 12/29 1600 12/30 N/A 1 UNIT IV 0909 Ondansetron HCl 4 MG ONCE ONE 12/30 0700 DC IV 12/30 0701 Pantoprazole Sodium 40 MG DAILY 12/28 1035 DC 12/30 IV 12/30 0901 0910 Piperacillin Sod/ 4.5 GM Q6H 12/27 1845 [place] 12/29 Tazobactam Sod IV 0554 Sodium Chloride 100 ML Results Pertinent Lab Results: Laboratory Tests 12/30 12/29 12/29 0440 1645 1607 Chemistry Sodium (137 - 145 mmol/L) 143 Potassium (3.5 - 5.1 mmol/L) 4.4 Chloride (98 - 107 mmol/L) 109 H Carbon Dioxide (22 - 30 mmol/L) 20 L Anion Gap (5 - 16) 15 BUN (9 - 20 mg/dL) 41 H Creatinine (0.7 - 1.2 mg/dL) 2.6 H Estimated GFR (>60 ml/min) 26 L Glucose (65 - 99 mg/dL) 140 H Calcium (8.4 - 10.2 mg/dL) 8.1 L Phosphorus (2.5 - 4.5 mg/dL) 2.7 Magnesium (1.6 - 2.3 mg/dL) 1.9 Total Bilirubin (0.2 - 1.3 mg/dL) 3.2 H Direct Bilirubin (< 0.4 mg/dL) 2.6 H AST (17 - 59 U/L) 46 ALT (21 - 72 U/L) 93 H Alkaline Phosphatase (< 127 U/L) 276 H Total Protein (6.3 - 8.2 g/dL) 5.5 L Albumin (3.5 - 5.0 g/dL) 2.7 L Amylase (30 - 110 U/L) 97 Lipase (23 - 300 U/L) 1076 H Coagulation PT (9.4 - 12.5 SEC) 12.4 INR (0.90 - 1.17) 1.14 Hematology CBC w Diff NO MAN DIFF REQ WBC (4.8 - 10.8 /CUMM) 6.5 RBC (4.70 - 6.10 /CUMM) 4.03 L Hgb (14.0 - 18.0 G/DL) 11.3 L Hct (42 - 52 %) 33.8 L MCV (80.0 - 94.0 FL) 83.8 MCH (27.0 - 31.0 PG) 28.1 MCHC (33.0 - 37.0 G/DL) 33.5 RDW (11.5 - 14.5 %) 15.9 H Plt Count (130 - 400 /CUMM) 213 MPV (7.4 - 10.4 FL) 8.3 Gran % (42.2 - 75.2 %) 83.4 H Lymphocytes % (20.5 - 51.1 %) 7.3 L Monocytes % (1.7 - 9.3 %) 7.4 Eosinophils % (0 - 5 %) 1.7 Basophils % (0.0 - 2.0 %) 0.2 Absolute Granulocytes (1.4 - 6.5 /CUMM) 5.4 Absolute Lymphocytes (1.2 - 3.4 /CUMM) 0.5 L Absolute Monocytes (0.10 - 0.60 /CUMM) 0.5 Absolute Eosinophils (0.0 - 0.7 /CUMM) 0.1 Absolute Basophils (0.0 - 0.2 /CUMM) 0 Urines Ur Random Creatinine Cancelled U Random Total Protein Cancelled Urine Total Volume Cancelled Ur Total Protein 24 Hr Cancelled 12/29 12/29 0330 0345 Chemistry Sodium (137 - 145 mmol/L) 145 Potassium (3.5 - 5.1 mmol/L) 4.4 Chloride (98 - 107 mmol/L) 107 Carbon Dioxide (22 - 30 mmol/L) 22 Anion Gap (5 - 16) 16 BUN (9 - 20 mg/dL) 50 H Creatinine (0.7 - 1.2 mg/dL) 3.5 H Estimated GFR (>60 ml/min) 18 L Glucose (65 - 99 mg/dL) 93 Calcium (8.4 - 10.2 mg/dL) 8.3 L Phosphorus (2.5 - 4.5 mg/dL) 3.0 Magnesium (1.6 - 2.3 mg/dL) 1.8 Total Bilirubin (0.2 - 1.3 mg/dL) 3.8 H AST (17 - 59 U/L) 62 H ALT (21 - 72 U/L) 133 H C-Reactive Prot, Quant (<1.0 mg/dL) > 9.0 H C-React Prot High Sens (1.0 - 3.0 mg/L) > 15.0 H Albumin (3.5 - 5.0 g/dL) 3.1 L Amylase (30 - 110 U/L) 335 H Lipase (23 - 300 U/L) 3126 H Hematology CBC w Diff NO MAN DIFF REQ WBC (4.8 - 10.8 /CUMM) 10.0 RBC (4.70 - 6.10 /CUMM) 4.15 L Hgb (14.0 - 18.0 G/DL) 11.7 L Hct (42 - 52 %) 35.5 L MCV (80.0 - 94.0 FL) 85.6 MCH (27.0 - 31.0 PG) 28.2 MCHC (33.0 - 37.0 G/DL) 32.9 L RDW (11.5 - 14.5 %) 15.4 H Plt Count (130 - 400 /CUMM) 211 MPV (7.4 - 10.4 FL) 8.4 Gran % (42.2 - 75.2 %) 85.9 H Lymphocytes % (20.5 - 51.1 %) 6.5 L Monocytes % (1.7 - 9.3 %) 6.6 Eosinophils % (0 - 5 %) 1.0 Basophils % (0.0 - 2.0 %) 0 Absolute Granulocytes (1.4 - 6.5 /CUMM) 8.6 H Absolute Lymphocytes (1.2 - 3.4 /CUMM) 0.6 L Absolute Monocytes (0.10 - 0.60 /CUMM) 0.7 H Absolute Eosinophils (0.0 - 0.7 /CUMM) 0.1 Absolute Basophils (0.0 - 0.2 /CUMM) 0 Urines Ur Random Creatinine (mg/dL) 89.7 U Random Total Protein (0 - 12 mg/dL) 69 H Ur Random Sodium (30 - 90 mmol/L) 70 Ur Random Potassium (mmol/L) 26.9 Protein/Creatinin Ratio (< 0.2) 0.7 H Fraction Sodium Excret (<1% %) 1.9 H 12/28 12/27 12/27 4643 9470 1940 Chemistry Sodium (137 - 145 mmol/L) 142 Potassium (3.5 - 5.1 mmol/L) 5.2 H Chloride (98 - 107 mmol/L) 108 H Carbon Dioxide (22 - 30 mmol/L) 24 Anion Gap (5 - 16) 10 BUN (9 - 20 mg/dL) 43 H Creatinine (0.7 - 1.2 mg/dL) 2.5 H Estimated GFR (>60 ml/min) 27 L BUN/Creatinine Ratio (7 - 25 %) 17.2 Lactic Acid (0.7 - 2.1 mmol/L) 1.6 2.4 H Total Bilirubin (0.2 - 1.3 mg/dL) 4.2 H Direct Bilirubin (< 0.4 mg/dL) 3.4 H AST (17 - 59 U/L) 94 H ALT (21 - 72 U/L) 159 H Alkaline Phosphatase (< 127 U/L) 238 H Total Protein (6.3 - 8.2 g/dL) 5.8 L Albumin (3.5 - 5.0 g/dL) 2.8 L Amylase (30 - 110 U/L) 1030 H Lipase (23 - 300 U/L) 6978 H TSH (0.270 - 4.200 uIU/mL) 0.485 Hematology CBC w Diff MAN DIFF ORDERED WBC (4.8 - 10.8 /CUMM) 15.1 H RBC (4.70 - 6.10 /CUMM) 3.91 L Hgb (14.0 - 18.0 G/DL) 11.1 L Hct (42 - 52 %) 33.5 L MCV (80.0 - 94.0 FL) 85.5 MCH (27.0 - 31.0 PG) 28.5 MCHC (33.0 - 37.0 G/DL) 33.3 RDW (11.5 - 14.5 %) 15.1 H Plt Count (130 - 400 /CUMM) 181 MPV (7.4 - 10.4 FL) 8.2 Gran % (42.2 - 75.2 %) 90.2 H Lymphocytes % (20.5 - 51.1 %) 2.9 L Monocytes % (1.7 - 9.3 %) 6.8 Eosinophils % (0 - 5 %) 0.1 Basophils % (0.0 - 2.0 %) 0 Absolute Granulocytes (1.4 - 6.5 /CUMM) 13.6 H Segmented Neutrophils (42.2 - 75.2 %) 77 H Band Neutrophils (0.0 - 5.0 %) 6 H Absolute Lymphocytes (1.2 - 3.4 /CUMM) 0.4 L Lymphocytes (20.5 - 51.1 %) 5 L Monocytes (1.7 - 9.3 %) 10 H Absolute Monocytes (0.10 - 0.60 /CUMM) 1.0 H Absolute Eosinophils (0.0 - 0.7 /CUMM) 0 Absolute Basophils (0.0 - 0.2 /CUMM) 0 Metamyelocytes (0.0 - 1.0 %) 2 H Platelet Estimate (ADEQUATE) ADEQUATE Polychromasia 1+ Poikilocytosis 1+ Ovalocytes 1+ Other Body Source Fld Total RBCs Counted (%) 100 12/27 12/27 1856 1828 Coagulation PT (9.4 - 12.5 SEC) 14.1 H INR (0.90 - 1.17) 1.29 H APTT (25 - 37 SEC) 29 Urines Urinalysis MOD H Urine Color (YEL,AMB,STR) YEL Urine Clarity (CLEAR) HAZY H Urine pH (5.0 - 8.0) 6.0 Ur Specific [place] (1.001 - 1.035) 1.020 Urine Protein (NEG,<30 MG/DL) 100 H Urine Ketones (NEG) NEG Urine Nitrite (NEG) NEG Urine Bilirubin (NEG) SMALL H Urine Urobilinogen (0.1 - 1.0 EU/dl) 0.2 Ur Leukocyte Esterase (NEG) NEG Ur Microscopic SEDIMENT EXAMINED Urine RBC (0 - 5 /HPF) 3-5 Urine WBC (0 - 2 /HPF) 3-5 H Granular Casts (NONE /LPF) FEW H Urine Hemoglobin (NEG) MOD H Urine Glucose (N MG/DL) NEG 12/27 1052 Chemistry Sodium (137 - 145 mmol/L) 142 Potassium (3.5 - 5.1 mmol/L) 4.6 Chloride (98 - 107 mmol/L) 104 Carbon Dioxide (22 - 30 mmol/L) 24 Anion Gap (5 - 16) 13 BUN (9 - 20 mg/dL) 40 H Creatinine (0.7 - 1.2 mg/dL) 1.8 H Estimated GFR (>60 ml/min) 39 L BUN/Creatinine Ratio (7 - 25 %) 22.2 Glucose (65 - 99 mg/dL) 230 H Calcium (8.4 - 10.2 mg/dL) 9.1 Total Bilirubin (0.2 - 1.3 mg/dL) 4.2 H AST (17 - 59 U/L) 136 H ALT (21 - 72 U/L) 215 H Alkaline Phosphatase (< 127 U/L) 334 H Lactate Dehydrogenase (313 - 618 U/L) 581 Troponin I (<0.11 ng/ml) < 0.01 Total Protein (6.3 - 8.2 g/dL) 7.3 Albumin (3.5 - 5.0 g/dL) 3.8 Globulin (1.9 - 4.2 gm/dL) 3.5 Albumin/Globulin Ratio (1.1 - 2.2 %) 1.1 Triglycerides (<150 mg/dL) 103 Cholesterol (< 200 MG/DL) 118 LDL Cholesterol, Calc (65 - 129 mg/dL) 68 HDL Cholesterol (40 - 60 mg/dL) 30 L Cholesterol/HDL Ratio (0.00 - 4.88 %) 4 Amylase (30 - 110 U/L) 2093 H Lipase (23 - 300 U/L) > 93476 H Hematology CBC w Diff NO MAN DIFF REQ WBC (4.8 - 10.8 /CUMM) 9.3 RBC (4.70 - 6.10 /CUMM) 5.08 Hgb (14.0 - 18.0 G/DL) 14.3 Hct (42 - 52 %) 42.1 MCV (80.0 - 94.0 FL) 82.9 MCH (27.0 - 31.0 PG) 28.2 MCHC (33.0 - 37.0 G/DL) 34.1 RDW (11.5 - 14.5 %) 14.5 Plt Count (130 - 400 /CUMM) 241 MPV (7.4 - 10.4 FL) 8.0 Gran % (42.2 - 75.2 %) 87.8 H Lymphocytes % (20.5 - 51.1 %) 7.3 L Monocytes % (1.7 - 9.3 %) 4.8 Eosinophils % (0 - 5 %) 0 Basophils % (0.0 - 2.0 %) 0.1 Absolute Granulocytes (1.4 - 6.5 /CUMM) 8.1 H Absolute Lymphocytes (1.2 - 3.4 /CUMM) 0.7 L Absolute Monocytes (0.10 - 0.60 /CUMM) 0.4 Absolute Eosinophils (0.0 - 0.7 /CUMM) 0 Absolute Basophils (0.0 - 0.2 /CUMM) 0 Serology Hepatitis A IgM Ab (NONREACTIVE) NONREACTIVE Hep Bs Antigen (NONREACTIVE) NONREACTIVE Hep B Core IgM Ab Conf (NONREACTIVE) NONREACTIVE Hepatitis C Antibody (NONREACTIVE) NONREACTIVE
--- NOTE | 2017-12-30 13:51 | PN- Gastroenterology ---
Assessment/Plan GI Assessment/Recommendations: Assessment: Mr. Griffin is a 57 year old male with multiple medical problems admitted with cholangitis who is currently doing well after having an ERCP which did not reveal any CBD stones so he presumably passed gallstone considering pus was seen. His bilirubin is still elevated, but it is now starting to improve. He is growing kebsiella pneumonia in his blood which is senstive to everything but ampicillin and he has been afebile on antibiotics so while his bilirubin has not completely normalized I expect it to with time and I don't feel a repeat ERCP is necessary at this time. Recommendations: 1. Keep NPO for CCY which will hopefully be done later today 2. Follow daily LFTs 3. Continue IV antibiotics for now, but if he stays afebrile would then change to oral antibiotcis to complete a 14 day course as per sesitivities. I will sign off at this time and ask that GI be re-contacted for any new GI issues that may arise on this hospitalization or if his bilirubin worsens. Subjective Subjective: pt feeling well this am and he notes he is awaiting surgery to remove his gallbladder. no significant pain or vomiting. Objective Vital Signs and I&Os Vital Signs Date Time Temp Pulse Resp B/P B/P Pulse O2 O2 Flow FiO2 Mean Ox Delivery Rate 12/30 0800 98.1 58 76 136/80 95 Room Air 12/30 0000 98.7 72 18 138/72 97 Room Air 12/29 1600 95 Room Air Room Air 12/29 1600 98.5 70 20 144/70 94 Room Air Room Air Intake & Output 12/30 1600 12/30 0400 12/29 1600 12/29 0400 12/28 1600 12/28 0400 Intake Total 576 1027 2289 900 3232 894 Output Total 319 671 4751 300 1000 600 Balance -74 377 9337 520 6320 294 Intake, IV 262 705 9084 600 3132 894 Intake, Oral 480 200 300 100 Number 1 0 Bowel Movements Output, Urine 593 526 8377 300 1000 600 Patient 277 lb 277 lb Weight Weight Reported by Patient Measurement Method Physical Exam General Appearance: well developed/nourished, no apparent distress, comfortable Head: atraumatic, normal appearance Ears, Nose, Throat: normal pharynx Neck: supple Respiratory: normal breath sounds, chest non-tender Cardiovascular: regular rate/rhythm Abdomen: normal bowel sounds, soft, non-tender Extremities: no edema Current Medications: Current Medications Sig/Callie Start time Last Medication Dose Route Stop Time Status Admin Atorvastatin Calcium 40 MG 1700 12/29 1700 12/29 PO 1619 Ceftriaxone Sodium 1,000 MG Q24H 12/29 1245 AC 12/30 IV 1239 Dextrose/Lactated 1,000 ML Q13H 12/28 1045 12/30 Ringer's IV 0129 Diphenhydramine HCl 1 BENIGNO Q8P PRN 12/29 0915 AC TOP Heparin Sodium 5,000 UNIT Q8 12/27 2210 AC 12/29 (Porcine) SC 2144 Hydromorphone HCl 0.4 MG Q4P PRN 12/27 1745 IV Insulin Detemir 20 UNITS DAILY 12/29 0900 12/30 SC 0917 Insulin Human Regular 2 UNITS .STK-MED ONE 12/29 2336 DC IV 12/29 2337 Insulin Human Regular 2 UNITS .STK-MED ONE 12/29 1822 DC IV 12/29 1823 Insulin Human Regular 0 Q6 12/27 1850 12/30 SC 1237 Levothyroxine Sodium 0.15 MG DAILY AC 12/29 0700 12/29 PO 0611 Metronidazole 500 MG IQ8 12/29 1600 12/30 N/A 1 UNIT IV 0909 Ondansetron HCl 4 MG ONCE ONE 12/30 0700 DC IV 12/30 0701 Pantoprazole Sodium 40 MG DAILY 12/28 1035 DC 12/30 IV 12/30 0901 0910 Results Pertinent Lab Results: Laboratory Tests 12/30 12/29 12/29 0440 1645 1607 Chemistry Sodium (137 - 145 mmol/L) 143 Potassium (3.5 - 5.1 mmol/L) 4.4 Chloride (98 - 107 mmol/L) 109 H Carbon Dioxide (22 - 30 mmol/L) 20 L Anion Gap (5 - 16) 15 BUN (9 - 20 mg/dL) 41 H Creatinine (0.7 - 1.2 mg/dL) 2.6 H Estimated GFR (>60 ml/min) 26 L Glucose (65 - 99 mg/dL) 140 H Calcium (8.4 - 10.2 mg/dL) 8.1 L Phosphorus (2.5 - 4.5 mg/dL) 2.7 Magnesium (1.6 - 2.3 mg/dL) 1.9 Total Bilirubin (0.2 - 1.3 mg/dL) 3.2 H Direct Bilirubin (< 0.4 mg/dL) 2.6 H AST (17 - 59 U/L) 46 ALT (21 - 72 U/L) 93 H Alkaline Phosphatase (< 127 U/L) 276 H Total Protein (6.3 - 8.2 g/dL) 5.5 L Albumin (3.5 - 5.0 g/dL) 2.7 L Amylase (30 - 110 U/L) 97 Lipase (23 - 300 U/L) 1076 H Coagulation PT (9.4 - 12.5 SEC) 12.4 INR (0.90 - 1.17) 1.14 Hematology CBC w Diff NO MAN DIFF REQ WBC (4.8 - 10.8 /CUMM) 6.5 RBC (4.70 - 6.10 /CUMM) 4.03 L Hgb (14.0 - 18.0 G/DL) 11.3 L Hct (42 - 52 %) 33.8 L MCV (80.0 - 94.0 FL) 83.8 MCH (27.0 - 31.0 PG) 28.1 MCHC (33.0 - 37.0 G/DL) 33.5 RDW (11.5 - 14.5 %) 15.9 H Plt Count (130 - 400 /CUMM) 213 MPV (7.4 - 10.4 FL) 8.3 Gran % (42.2 - 75.2 %) 83.4 H Lymphocytes % (20.5 - 51.1 %) 7.3 L Monocytes % (1.7 - 9.3 %) 7.4 Eosinophils % (0 - 5 %) 1.7 Basophils % (0.0 - 2.0 %) 0.2 Absolute Granulocytes (1.4 - 6.5 /CUMM) 5.4 Absolute Lymphocytes (1.2 - 3.4 /CUMM) 0.5 L Absolute Monocytes (0.10 - 0.60 /CUMM) 0.5 Absolute Eosinophils (0.0 - 0.7 /CUMM) 0.1 Absolute Basophils (0.0 - 0.2 /CUMM) 0 Urines Ur Random Creatinine Cancelled U Random Total Protein Cancelled Urine Total Volume Cancelled Ur Total Protein 24 Hr Cancelled 12/29 12/29 2062 1841 Chemistry Sodium (137 - 145 mmol/L) 145 Potassium (3.5 - 5.1 mmol/L) 4.4 Chloride (98 - 107 mmol/L) 107 Carbon Dioxide (22 - 30 mmol/L) 22 Anion Gap (5 - 16) 16 BUN (9 - 20 mg/dL) 50 H Creatinine (0.7 - 1.2 mg/dL) 3.5 H Estimated GFR (>60 ml/min) 18 L Glucose (65 - 99 mg/dL) 93 Calcium (8.4 - 10.2 mg/dL) 8.3 L Phosphorus (2.5 - 4.5 mg/dL) 3.0 Magnesium (1.6 - 2.3 mg/dL) 1.8 Total Bilirubin (0.2 - 1.3 mg/dL) 3.8 H AST (17 - 59 U/L) 62 H ALT (21 - 72 U/L) 133 H C-Reactive Prot, Quant (<1.0 mg/dL) > 9.0 H C-React Prot High Sens (1.0 - 3.0 mg/L) > 15.0 H Albumin (3.5 - 5.0 g/dL) 3.1 L Amylase (30 - 110 U/L) 335 H Lipase (23 - 300 U/L) 3126 H Hematology CBC w Diff NO MAN DIFF REQ WBC (4.8 - 10.8 /CUMM) 10.0 RBC (4.70 - 6.10 /CUMM) 4.15 L Hgb (14.0 - 18.0 G/DL) 11.7 L Hct (42 - 52 %) 35.5 L MCV (80.0 - 94.0 FL) 85.6 MCH (27.0 - 31.0 PG) 28.2 MCHC (33.0 - 37.0 G/DL) 32.9 L RDW (11.5 - 14.5 %) 15.4 H Plt Count (130 - 400 /CUMM) 211 MPV (7.4 - 10.4 FL) 8.4 Gran % (42.2 - 75.2 %) 85.9 H Lymphocytes % (20.5 - 51.1 %) 6.5 L Monocytes % (1.7 - 9.3 %) 6.6 Eosinophils % (0 - 5 %) 1.0 Basophils % (0.0 - 2.0 %) 0 Absolute Granulocytes (1.4 - 6.5 /CUMM) 8.6 H Absolute Lymphocytes (1.2 - 3.4 /CUMM) 0.6 L Absolute Monocytes (0.10 - 0.60 /CUMM) 0.7 H Absolute Eosinophils (0.0 - 0.7 /CUMM) 0.1 Absolute Basophils (0.0 - 0.2 /CUMM) 0 Urines Ur Random Creatinine (mg/dL) 89.7 U Random Total Protein (0 - 12 mg/dL) 69 H Ur Random Sodium (30 - 90 mmol/L) 70 Ur Random Potassium (mmol/L) 26.9 Protein/Creatinin Ratio (< 0.2) 0.7 H Fraction Sodium Excret (<1% %) 1.9 H 12/28 12/27 12/27 0425 2240 1940 Chemistry Sodium (137 - 145 mmol/L) 142 Potassium (3.5 - 5.1 mmol/L) 5.2 H Chloride (98 - 107 mmol/L) 108 H Carbon Dioxide (22 - 30 mmol/L) 24 Anion Gap (5 - 16) 10 BUN (9 - 20 mg/dL) 43 H Creatinine (0.7 - 1.2 mg/dL) 2.5 H Estimated GFR (>60 ml/min) 27 L BUN/Creatinine Ratio (7 - 25 %) 17.2 Lactic Acid (0.7 - 2.1 mmol/L) 1.6 2.4 H Total Bilirubin (0.2 - 1.3 mg/dL) 4.2 H Direct Bilirubin (< 0.4 mg/dL) 3.4 H AST (17 - 59 U/L) 94 H ALT (21 - 72 U/L) 159 H Alkaline Phosphatase (< 127 U/L) 238 H Total Protein (6.3 - 8.2 g/dL) 5.8 L Albumin (3.5 - 5.0 g/dL) 2.8 L Amylase (30 - 110 U/L) 1030 H Lipase (23 - 300 U/L) 6978 H TSH (0.270 - 4.200 uIU/mL) 0.485 Hematology CBC w Diff MAN DIFF ORDERED WBC (4.8 - 10.8 /CUMM) 15.1 H RBC (4.70 - 6.10 /CUMM) 3.91 L Hgb (14.0 - 18.0 G/DL) 11.1 L Hct (42 - 52 %) 33.5 L MCV (80.0 - 94.0 FL) 85.5 MCH (27.0 - 31.0 PG) 28.5 MCHC (33.0 - 37.0 G/DL) 33.3 RDW (11.5 - 14.5 %) 15.1 H Plt Count (130 - 400 /CUMM) 181 MPV (7.4 - 10.4 FL) 8.2 Gran % (42.2 - 75.2 %) 90.2 H Lymphocytes % (20.5 - 51.1 %) 2.9 L Monocytes % (1.7 - 9.3 %) 6.8 Eosinophils % (0 - 5 %) 0.1 Basophils % (0.0 - 2.0 %) 0 Absolute Granulocytes (1.4 - 6.5 /CUMM) 13.6 H Segmented Neutrophils (42.2 - 75.2 %) 77 H Band Neutrophils (0.0 - 5.0 %) 6 H Absolute Lymphocytes (1.2 - 3.4 /CUMM) 0.4 L Lymphocytes (20.5 - 51.1 %) 5 L Monocytes (1.7 - 9.3 %) 10 H Absolute Monocytes (0.10 - 0.60 /CUMM) 1.0 H Absolute Eosinophils (0.0 - 0.7 /CUMM) 0 Absolute Basophils (0.0 - 0.2 /CUMM) 0 Metamyelocytes (0.0 - 1.0 %) 2 H Platelet Estimate (ADEQUATE) ADEQUATE Polychromasia 1+ Poikilocytosis 1+ Ovalocytes 1+ Other Body Source Fld Total RBCs Counted (%) 100 12/27 12/27 7316 1828 Coagulation PT (9.4 - 12.5 SEC) 14.1 H INR (0.90 - 1.17) 1.29 H APTT (25 - 37 SEC) 29 Urines Urinalysis MOD H Urine Color (YEL,AMB,STR) YEL Urine Clarity (CLEAR) HAZY H Urine pH (5.0 - 8.0) 6.0 Ur Specific [place] (1.001 - 1.035) 1.020 Urine Protein (NEG,<30 MG/DL) 100 H Urine Ketones (NEG) NEG Urine Nitrite (NEG) NEG Urine Bilirubin (NEG) SMALL H Urine Urobilinogen (0.1 - 1.0 EU/dl) 0.2 Ur Leukocyte Esterase (NEG) NEG Ur Microscopic SEDIMENT EXAMINED Urine RBC (0 - 5 /HPF) 3-5 Urine WBC (0 - 2 /HPF) 3-5 H Granular Casts (NONE /LPF) FEW H Urine Hemoglobin (NEG) MOD H Urine Glucose (N MG/DL) NEG > BLOOD CULTURE REPORT Final 12/30/17-819 GRAM STAIN SUGGESTIVE OF: GRAM NEGATIVE RODS Called to/Readback by DARLYN by [email or web address] 12/28/17 1015 and at 1035 by [facility].DEAN CULTURE: KLEBSIELLA PNEUMONIAE 1. KLEBSIELLA PNEUMONIAE RX AB ------ -- AMPICILLIN R CEFAZOLIN S AMOXICILLIN/CLAVULINIC ACID S AMPICILLIN/SULBACTAM S CIPROFLOXACIN S GENTAMICIN S TRIMETHOPRIM/SULFAMETHOXAZOLE S
[2017-12-30 16:00] VITALS: BP 150/80
[2017-12-31 01:00] VITALS: BP 150/70
[2017-12-31 05:31] LABS: ABSOLUTE BASOPHIL COUNT 0 /CUMM (0.0-0.2); ABSOLUTE EOSINOPHIL COUNT 0 /CUMM (0.0-0.7); ABSOLUTE GRANULOCYTE CT 6.5 /CUMM (1.4-6.5); ABSOLUTE LYMPH COUNT 0.4 /CUMM (1.2-3.4); ABSOLUTE MONOCYTE COUNT 0.6 /CUMM (0.10-0.60); BASOPHIL % 0.1 % (0.0-2.0); EOSINOPHIL % 0.1 % (0-5); HEMATOCRIT 35.3 % (42-52); MEAN CORPUSCULAR HGB 27.8 PG (27.0-31.0); MEAN CORPUSCULAR HGB CONC 32.9 G/DL (33.0-37.0); MEAN CORPUSCULAR VOLUME 84.5 FL (80.0-94.0); MEAN PLATELET VOLUME 8.1 FL (7.4-10.4); PLATELET COUNT 214 /CUMM (130-400); RBC DISTRIBUTION WIDTH 15.9 % (11.5-14.5); RED BLOOD CELL CT 4.18 /CUMM (4.70-6.10)
[2017-12-31 06:07] LABS: WHITE BLOOD CELL COUNT 7.6 /CUMM (4.8-10.8)
--- NOTE | 2017-12-31 07:55 | PN- General Surgery ---
See Addendum Subjective Subjective: 57 y/o male S/P jerrica alexander did well overnight without complains no fevers or chills pain controlled minimally hungry this am passing felisha complains of right extremity sensory changes -pin and needles. He has had this in the past. no other sensory changes or motor weakness Objective Vital Signs and I&Os Vital Signs Date Time Temp Pulse Resp B/P B/P Pulse O2 O2 Flow FiO2 Mean Ox Delivery Rate 12/31 0559 77 197/89 12/31 0400 94 Room Air 12/31 0200 96 Nasal 2.0L Cannula 12/31 0100 96.7 70 18 150/70 99 Nasal 2.0L Cannula 12/30 2000 95 Room Air 12/30 1600 98.0 72 20 150/80 95 Room Air 12/30 0800 98.1 58 76 136/80 95 Room Air Intake & Output 12/31 0800 12/31 0000 12/30 1600 12/30 0800 12/30 0000 12/29 1600 Intake Total 2171 400 648 764 4235 1544 Output Total 540 600 700 650 650 800 Balance 1631 -200 -75 -74 377 744 Intake, IV 2071 400 625 490 088 4573 Intake, Oral 100 0 480 200 Number 0 0 Bowel Movements Output, 40 Drainage Output, Urine 500 600 700 650 650 800 Patient 277 lb Weight Physical Exam: patient is alert and oriented lying in bed, is present neck - supple NT AROM right shoulder- near FROM has history of adhesive capsulitis tender over AC joint with positive crossover tender over anterior shoulder motor 5/5 and sensory present but has pins and needles into the hand chest - CTA symmetric Heart- RRR without MRG Abd -obese, generalized soreness, dressins CDI GAMAL with scant output Physical Exam General Appearance: no apparent distress, alert, awake Admission Lab Results I reviewed the following labs: Laboratory Tests 12/31 12/30 0430 UNK Chemistry Sodium (137 - 145 mmol/L) 144 Cancelled Potassium (3.5 - 5.1 mmol/L) 4.5 Cancelled Chloride (98 - 107 mmol/L) 108 H Cancelled Carbon Dioxide (22 - 30 mmol/L) 21 L Cancelled Anion Gap (5 - 16) 15 Cancelled BUN (9 - 20 mg/dL) 33 H Cancelled Creatinine (0.7 - 1.2 mg/dL) 2.4 H Cancelled Estimated GFR (>60 ml/min) 28 L Glucose (65 - 99 mg/dL) 132 H Cancelled Calcium (8.4 - 10.2 mg/dL) 8.1 L Cancelled Phosphorus (2.5 - 4.5 mg/dL) 4.1 Cancelled Magnesium (1.6 - 2.3 mg/dL) 1.8 Cancelled Total Bilirubin (0.2 - 1.3 mg/dL) 2.3 H Cancelled Direct Bilirubin (< 0.4 mg/dL) 1.9 H AST (17 - 59 U/L) 63 H Cancelled ALT (21 - 72 U/L) 88 H Cancelled Alkaline Phosphatase (< 127 U/L) 284 H Total Protein (6.3 - 8.2 g/dL) 5.5 L Albumin (3.5 - 5.0 g/dL) 2.7 L Cancelled Hematology CBC w Diff NO MAN DIFF REQ WBC (4.8 - 10.8 /CUMM) 7.6 RBC (4.70 - 6.10 /CUMM) 4.18 L Hgb (14.0 - 18.0 G/DL) 11.6 L Hct (42 - 52 %) 35.3 L MCV (80.0 - 94.0 FL) 84.5 MCH (27.0 - 31.0 PG) 27.8 MCHC (33.0 - 37.0 G/DL) 32.9 L RDW (11.5 - 14.5 %) 15.9 H Plt Count (130 - 400 /CUMM) 214 MPV (7.4 - 10.4 FL) 8.1 Gran % (42.2 - 75.2 %) 86.0 H Lymphocytes % (20.5 - 51.1 %) 5.9 L Monocytes % (1.7 - 9.3 %) 7.9 Eosinophils % (0 - 5 %) 0.1 Basophils % (0.0 - 2.0 %) 0.1 Absolute Granulocytes (1.4 - 6.5 /CUMM) 6.5 Absolute Lymphocytes (1.2 - 3.4 /CUMM) 0.4 L Absolute Monocytes (0.10 - 0.60 /CUMM) 0.6 Absolute Eosinophils (0.0 - 0.7 /CUMM) 0 Absolute Basophils (0.0 - 0.2 /CUMM) 0 Assessment/Plan Assessment/Plan POD1 lap catherine advance diet to clears - when taking POs heplock IV OOB ambulating HSQ -DVT proph continue to follow LFTs and GAMAL output Core Measures Venous Thromboembolism VTE Risk Factors Acute Medical Illness No Mechanical VTE Prophylaxis d/t N/A MechProphylax Ordered No VTE Pharm Prophylaxis d/t NA PharmProphylax ordered
[2017-12-31 08:00] VITALS: BP 144/80
--- NOTE | 2017-12-31 09:32 | PN- Resident CRCU ---
Avila MUÑOZ,[facility] 12/31/17 0931: Subjective HPI/CRCU Issues: Cholecystectomy performed last night. Started on clear liquid diet. He was given 5 mg Norvasc for hypertension last night. 24 Hour Events: MAXIMUM TEMPERATURE 98 Heart rate 6476 Mr. rate 1422 Blood pressure 383301/7084 94-95% oxygen saturation on room air Objective Vital Signs & I&O Last 8 Hrs of Vitals and I&O: Laboratory Tests 12/31/17 0430: Anion Gap 15, Estimated GFR 28 L, Glucose 132 H, Calcium 8.1 L, Phosphorus 4.1, Magnesium 1.8, Total Bilirubin 2.3 H, Direct Bilirubin 1.9 H, AST 63 H, ALT 88 H, Alkaline Phosphatase 284 H, Total Protein 5.5 L, Albumin 2.7 L, CBC w Diff NO MAN DIFF REQ, RBC 4.18 L, MCV 84.5, MCH 27.8, MCHC 32.9 L, RDW 15.9 H, MPV 8.1, Gran % 86.0 H, Lymphocytes % 5.9 L, Monocytes % 7.9, Eosinophils % 0.1, Basophils % 0.1, Absolute Granulocytes 6.5, Absolute Lymphocytes 0.4 L, Absolute Monocytes 0.6, Absolute Eosinophils 0, Absolute Basophils 0 Vital Signs Date Time Temp Pulse Resp B/P B/P Pulse O2 O2 Flow FiO2 Mean Ox Delivery Rate 12/31 0559 77 197/89 12/31 0400 94 Room Air 12/31 0200 96 Nasal 2.0L Cannula 12/31 0100 96.7 70 18 150/70 99 Nasal 2.0L Cannula 12/30 2000 95 Room Air 12/30 1600 98.0 72 20 150/80 95 Room Air Intake & Output 12/31 1600 12/31 0800 12/31 0000 Intake Total 2171 400 Output Total 540 600 Balance 1631 -200 Intake, IV 2071 400 Intake, Oral 100 0 Number 0 0 Bowel Movements Output, 40 Drainage Output, Urine 500 600 Exam General Appearance: alert, awake, comfortable Respiratory: mild crackles Cardiovascular: regular rate/rhythm Gastrointestinal: decreased BS. lap choly scars., RUQ tenderness Extremities: 2+ LE edema Skin: diffuse circular nonblanching rash of diffuse abd Current Medications: Current Medications Sig/Callie Start time Last Medication Dose Route Stop Time Status Admin Acetaminophen 1,000 MG .STK-MED ONE 12/30 1952 DC IV 12/30 1953 Amlodipine Besylate 5 MG ONCE ONE 12/31 0530 DC 12/31 PO 12/31 0531 0559 Atorvastatin Calcium 40 MG 1700 12/29 1700 AC 12/29 PO 1619 Ceftriaxone Sodium 1,000 MG Q24H 12/29 1245 12/30 IV 1239 Dextrose/Lactated 1,000 ML Q13H 12/28 1045 12/31 Ringer's IV 0455 Diphenhydramine HCl 1 BENIGNO Q8P PRN 12/29 0915 [facility] Fentanyl Citrate 250 MCG .STK-MED ONE 12/30 1952 DC IM 12/30 195 Heparin Sodium 5,000 UNIT Q8 12/27 2210 12/31 (Porcine) SC 0503 Hydromorphone HCl 2 MG .STK-MED ONE 12/30 1952 DC IM 12/30 195 Hydromorphone HCl 0.4 MG Q4P PRN 12/27 1745 DC IV Insulin Detemir 20 UNITS DAILY 12/29 0900 12/31 SC 1045 Insulin Human Regular 2 UNITS .STK-MED ONE 12/31 0114 DC IV 12/31 0115 Insulin Human Regular 2 UNITS .STK-MED ONE 12/30 1820 DC IV 12/30 1821 Insulin Human Regular 2 UNITS .STK-MED ONE 12/30 1215 DC IV 12/30 1216 Insulin Human Regular 0 Q6 12/27 1850 12/31 SC 0502 Levothyroxine Sodium 0.15 MG DAILY AC 12/29 0700 12/31 PO 0601 Magnesium Oxide 400 MG ONE ONE 12/31 0845 DC 12/31 PO 12/31 0846 1041 Metronidazole 500 MG IQ8 12/29 1600 12/31 N/A 1 UNIT IV 0848 Morphine Sulfate 2 MG Q2P PRN 12/31 0100 12/31 IV 1041 Ondansetron HCl 8 MG .STK-MED ONE 12/30 1755 DC IV 12/30 1756 Oxycodone HCl 5 MG Q4 HRS NEEDED PRN 12/31 0100 12/31 PO 0848 Oxycodone HCl 10 MG Q4 HRS NEEDED PRN 12/31 0100 PO Impression/Plan Impression/Problem List Impression: A: 57 year old male with a PMH significant for hypertension, hypothyroidism, HLD, diabetes, GERD, that presenting with complaints 1.5 days history of abdominal pain, nausea and vomiting, jaundice, generalized urticaria, malaise most likely 2/2 gallstone pancreatitis with possible ascending cholangitis and hypotension after morphine administration in the ED: #Gallstone pancreatitis with Klebsiella bacteremia and cholangitis s/p cholecystectomy The patient states that he has had 1.5 days of abd, pain N/V, jaundice, and itching before admission. He was given IV NS, Zofran, morphine, & Toradol in the ER. Initial CT: Cholelithiasis with no acute cholecystitis, CBD measures 1 cm in diameter, mildly dilated, bilateral perinephric stranding, borderline enlarged periportal lymph nodes. Patient had ERCP done which revealed findings consistent of CBD stone which has passed and cholangitis. Initial lactic acidosis resolved with fluids, normal triglycerides and cholesterol but low HDL Hepatits viral panel negative Mild fever to Tmax 99.5 with improving WBC 9.3 -> 15.1 -> 7.6 Amylase 2093 -> 1030 -> 335 (post ERCP) -> 97 Lipase greater than 10,000 -> 6978 -> 6978 (post-ERCP) -> 1076 Tbili 4.2 -> 3.2 -> 2.3, Direct 3.4 -> 2.6 -> 1.9 AST 136 -> 94 -> 62 -> 46 -> 63 ALT 215 -> 159 -> 133 -> 93 -> 88 ALP 334 -> 238 -> 276 CRP >9.0 His home medications include atorvastatin and HCTZ are also know to cause pancreatitis, irbesartan can cause hepatitis. The patient was previously on Trulicity which can cause pancreatitis but was self discontinued a week ago due to rash. -BC positive for Klebsiella pneumonia. cont ceftriaxone/metronidazole (day 4/14 for abx) -switch to po ABX based on culture sensitivities. -advance diet per surgery -Continue atorvastatin as it was unlikely the cause of his pancreatitis -cont LR IVF -finished IV PPI x3 days per GI -f/u GI recs: daily lfts. they haved signed off -will require surgery follow up in 2 weeks #itching -itching most likely due to bile salt accumulation. -Currently improved with Benadryl cream #CHARLENE CKD baseline 1.8 Current Cr 3.5 -> 2.4 Possibly secondary to indomethacin or ketorolac doses vs sepsis Urine lytes revealed elevated total protein, elevated protein to creatinine ratio, and Fena -cont to monitor, encourage po intake -hold nsaids and hctz and irbesartan #Hypotensive episode with history of hypertension Initial BP was 196/88 and dropped to 82-92/50 after administration of morphine. Improved with fluids. Patient currently hypertensive 150s/90s with occasional 190s/80s reading -start patient on amlodipine -cont to monitor, holding irbesartan and hctz #Renal cyst Initial CT revealed 3.3 cm water density cystic lesion at the lower pole left kidney. This is incompletely evaluated without intravenous contrast material. It was not seen on prior ultrasound. - Consider follow-up renal protocol CT with and without contrast or MRI with and without contrast for further evaluation #HLD takes atorvastatin at home -restarted artorvastatin.as ercp revealed findings more consistent of gallstone pancreaitis. #diabetes Was taking trulicity @ home but stopped due to rash. He no longer takes glipizide -Continue reduced dose Levemir and novolog sliding scale -Increase his Levemir slowly to home dose after he begins eating (60mg daily at home) #hypothyroidism -cont levothyroxine #atelectasis CXR: Low lung volumes. Bibasilar atelectasis and bronchovascular crowding. Small effusions cannot be entirely excluded. -cont incentive vibha #Housekeeping Clear liquid diet, advance as tolerated FULL CODE DVT prophylaxis - SC heparin Problem List: 1. Gram-negative bacteremia 2. Cholangitis 3. Gallstone pancreatitis 4. S/P cholecystectomy 5. CHARLENE (acute kidney injury) 6. CKD (chronic kidney disease) 7. Pancreatitis 8. Hypertension Pain Ratin Tomorrow's Labs & Rationales: cbc bep lft lipase Plan DVT/Prophylaxis: subq heparin Crow Zamora MD 12/31/17 0932: Attending MD Review Statement Attending Sign Off Attending Cosign Statement: I have: examined this patient, reviewed avalbl EMR data, personally reviewd images, discussd w/resident/PA/AUTOMOTIVE SERVICE TECHNICIAN, discussed mgmt plan w/eda, discussed mgmt plan w/CM, discussed mgmt plan w/pt, agreed w/resident/PA/AUTOMOTIVE SERVICE TECHNICIAN, amended to note. Other Findings: I, Crow Zamora M.D. have examined this patient, reviewed available EMR data, personally reviewed images, discussed with resident/PA/AUTOMOTIVE SERVICE TECHNICIAN, discussed management plan with housestaff and nursing staff, discussed managment plan all of healthcare providers, discussed management plan with patient and/or family, agreed with resident/PA/AUTOMOTIVE SERVICE TECHNICIAN. The past history and parts of the chart have been autopopulated. Impression 57 year old man * s/p laparoscopic cholecystectomy for cholangitis and evidence of gallstone pancreatitis * charlene on ckd * Klebsiella septecemia Plan Respiratory -room air -ensure IST ID -IV ceftriaxone and flagyl - 14 day course per GI -s/p cholecystectomy CVS -hemodynamically stable -no tele need -bp control - can begin norvasc and continue to evaluate need for further meds, HCTZ has been held due to CHARLENE Heme -monitor cbc, coags Metabolic -f/u nephrology -CHARLENE improving -trend LFTs -once diet advanced, dc fluids if okay with renal Alimentary -clears and advance as tolerated per surgery Neuro -pain control - currently controlled DVT prophylaxis at all times - Heparin subcutaneous q8h TTS 35 min If BP remains stable can be downgraded to Gen Med
--- NOTE | 2017-12-31 11:21 | PN- Nephrology ---
Assessment/Plan Nephrology Assessment: 1. Acute kidney injury. Likely related to volume depletion, sepsis with positive blood cultures and the administration of Toradol. His renal function is done well after the cholecystectomy. Serum creatinine is 2.4 today 2. Chronic kidney disease. It is worrisome that he may have diabetic kidney disease underlying this 3. Diabetes mellitus 4. Obesity. He needs to be encouraged to lose weight. 5. Hypertension. This was diagnosis roughly the same time that he was found to have diabetes. 6. Gram-negative sepsis. 7. Status post cholecystectomy. 8. Pruritus. He was hyperbilirubinemia And now has acute kidney injury. Suggestion: 1. Continue current therapy. 2. Absolutely no nonsteroidal anti-inflammatory drugs for now. Keep in mind, aspirin at a dose of 81 mg or 325 mg, does not affect kidney function. Subjective Subjective: Patient is sitting up in a chair. He feels better. Objective Vital Signs and I&Os Vital Signs Date Time Temp Pulse Resp B/P B/P Pulse O2 O2 Flow FiO2 Mean Ox Delivery Rate 12/31 0559 77 197/89 12/31 0400 94 Room Air 12/31 0200 96 Nasal 2.0L Cannula 12/31 0100 96.7 70 18 150/70 99 Nasal 2.0L Cannula 12/30 2000 95 Room Air 12/30 1600 98.0 72 20 150/80 95 Room Air Intake & Output 12/31 1600 12/31 0400 12/30 1600 12/30 0400 12/29 1600 12/29 0400 Intake Total 2171 400 1201 1027 2289 900 Output Total 922 689 3032 650 1200 300 Balance 1631 -200 -021 947 4619 600 Intake, IV 2071 400 4972 205 7150 600 Intake, Oral 100 0 480 200 300 Number 0 0 1 Bowel Movements Output, 40 Drainage Output, Urine 504 815 9393 650 1200 300 Patient 277 lb Weight Physical Exam: General Appearance: alert, awake, oriented sitting up in a chair Head: atraumatic, normal appearance Eyes: Bilateral: normal appearance, PERRL, EOMI. Neck: normal inspection, supple, trachea mid line Respiratory: normal breath sounds, chest non-tender, lungs clear Cardiovascular: regular rate/rhythm, edema, gallop, murmur Gastrointestinal: Obese protuberant abdomen. I did not examine the right upper quadrant wound there is also a drain in place Back: normal inspection, no vertebral tenderness Extremities: normal inspection, his left leg has an area of deformity near the heel Neurologic/Psych: no motor/sensory deficits, awake, alert, oriented x 3, Skin: intact, rash (appears to have areas of ecchymosis), excoriations on his right leg Current Medications: Current Medications Sig/Callie Start time Last Medication Dose Route Stop Time Status Admin Acetaminophen 1,000 MG .STK-MED ONE 12/30 1952 DC IV 12/30 1953 Amlodipine Besylate 5 MG ONCE ONE 12/31 0530 DC 12/31 PO 12/31 0531 0559 Atorvastatin Calcium 40 MG 1700 12/29 1700 12/29 PO 1619 Ceftriaxone Sodium 1,000 MG Q24H 12/29 1245 12/30 IV 1239 Dextrose/Lactated 1,000 ML Q13H 12/28 1045 12/31 Ringer's IV 0455 Diphenhydramine HCl 1 BENIGNO Q8P PRN 12/29 0915 [facility] Fentanyl Citrate 250 MCG .STK-MED ONE 12/30 1952 DC IM 12/30 195 Heparin Sodium 5,000 UNIT Q8 12/27 2210 12/31 (Porcine) SC 0503 Hydromorphone HCl 2 MG .STK-MED ONE 12/30 1952 DC IM 12/30 195 Hydromorphone HCl 0.4 MG Q4P PRN 12/27 1745 VT IV Insulin Detemir 20 UNITS DAILY 12/29 0900 12/31 AK 1045 Insulin Human Regular 2 UNITS .STK-MED ONE 12/31 0114 DC IV 12/31 0115 Insulin Human Regular 2 UNITS .STK-MED ONE 12/30 1820 DC IV 12/30 1821 Insulin Human Regular 2 UNITS .STK-MED ONE 12/30 1215 DC IV 12/30 1216 Insulin Human Regular 0 Q6 12/27 1850 12/31 SC 0502 Levothyroxine Sodium 0.15 MG DAILY AC 12/29 0700 12/31 PO 0601 Magnesium Oxide 400 MG ONE ONE 12/31 0845 DC 12/31 PO 12/31 0846 1041 Metronidazole 500 MG IQ8 12/29 1600 12/31 N/A 1 UNIT IV 0848 Morphine Sulfate 2 MG Q2P PRN 12/31 0100 12/31 IV 1041 Ondansetron HCl 8 MG .STK-MED ONE 12/30 1755 DC IV 12/30 1756 Oxycodone HCl 5 MG Q4 HRS NEEDED PRN 12/31 010 AC 12/31 PO 0848 Oxycodone HCl 10 MG Q4 HRS NEEDED PRN 12/31 99 AC PO Results Pertinent Lab Results: Laboratory Tests 12/31 12/30 0430 UNK Chemistry Sodium (137 - 145 mmol/L) 144 Cancelled Potassium (3.5 - 5.1 mmol/L) 4.5 Cancelled Chloride (98 - 107 mmol/L) 108 H Cancelled Carbon Dioxide (22 - 30 mmol/L) 21 L Cancelled Anion Gap (5 - 16) 15 Cancelled BUN (9 - 20 mg/dL) 33 H Cancelled Creatinine (0.7 - 1.2 mg/dL) 2.4 H Cancelled Estimated GFR (>60 ml/min) 28 L Glucose (65 - 99 mg/dL) 132 H Cancelled Calcium (8.4 - 10.2 mg/dL) 8.1 L Cancelled Phosphorus (2.5 - 4.5 mg/dL) 4.1 Cancelled Magnesium (1.6 - 2.3 mg/dL) 1.8 Cancelled Total Bilirubin (0.2 - 1.3 mg/dL) 2.3 H Cancelled Direct Bilirubin (< 0.4 mg/dL) 1.9 H AST (17 - 59 U/L) 63 H Cancelled ALT (21 - 72 U/L) 88 H Cancelled Alkaline Phosphatase (< 127 U/L) 284 H Total Protein (6.3 - 8.2 g/dL) 5.5 L Albumin (3.5 - 5.0 g/dL) 2.7 L Cancelled Hematology CBC w Diff NO MAN DIFF REQ WBC (4.8 - 10.8 /CUMM) 7.6 RBC (4.70 - 6.10 /CUMM) 4.18 L Hgb (14.0 - 18.0 G/DL) 11.6 L Hct (42 - 52 %) 35.3 L MCV (80.0 - 94.0 FL) 84.5 MCH (27.0 - 31.0 PG) 27.8 MCHC (33.0 - 37.0 G/DL) 32.9 L RDW (11.5 - 14.5 %) 15.9 H Plt Count (130 - 400 /CUMM) 214 MPV (7.4 - 10.4 FL) 8.1 Gran % (42.2 - 75.2 %) 86.0 H Lymphocytes % (20.5 - 51.1 %) 5.9 L Monocytes % (1.7 - 9.3 %) 7.9 Eosinophils % (0 - 5 %) 0.1 Basophils % (0.0 - 2.0 %) 0.1 Absolute Granulocytes (1.4 - 6.5 /CUMM) 6.5 Absolute Lymphocytes (1.2 - 3.4 /CUMM) 0.4 L Absolute Monocytes (0.10 - 0.60 /CUMM) 0.6 Absolute Eosinophils (0.0 - 0.7 /CUMM) 0 Absolute Basophils (0.0 - 0.2 /CUMM) 0 12/30 12/29 12/29 0440 1645 1607 Chemistry Sodium (137 - 145 mmol/L) 143 Potassium (3.5 - 5.1 mmol/L) 4.4 Chloride (98 - 107 mmol/L) 109 H Carbon Dioxide (22 - 30 mmol/L) 20 L Anion Gap (5 - 16) 15 BUN (9 - 20 mg/dL) 41 H Creatinine (0.7 - 1.2 mg/dL) 2.6 H Estimated GFR (>60 ml/min) 26 L Glucose (65 - 99 mg/dL) 140 H Calcium (8.4 - 10.2 mg/dL) 8.1 L Phosphorus (2.5 - 4.5 mg/dL) 2.7 Magnesium (1.6 - 2.3 mg/dL) 1.9 Total Bilirubin (0.2 - 1.3 mg/dL) 3.2 H Direct Bilirubin (< 0.4 mg/dL) 2.6 H AST (17 - 59 U/L) 46 ALT (21 - 72 U/L) 93 H Alkaline Phosphatase (< 127 U/L) 276 H Total Protein (6.3 - 8.2 g/dL) 5.5 L Albumin (3.5 - 5.0 g/dL) 2.7 L Amylase (30 - 110 U/L) 97 Lipase (23 - 300 U/L) 1076 H Coagulation PT (9.4 - 12.5 SEC) 12.4 INR (0.90 - 1.17) 1.14 Hematology CBC w Diff NO MAN DIFF REQ WBC (4.8 - 10.8 /CUMM) 6.5 RBC (4.70 - 6.10 /CUMM) 4.03 L Hgb (14.0 - 18.0 G/DL) 11.3 L Hct (42 - 52 %) 33.8 L MCV (80.0 - 94.0 FL) 83.8 MCH (27.0 - 31.0 PG) 28.1 MCHC (33.0 - 37.0 G/DL) 33.5 RDW (11.5 - 14.5 %) 15.9 H Plt Count (130 - 400 /CUMM) 213 MPV (7.4 - 10.4 FL) 8.3 Gran % (42.2 - 75.2 %) 83.4 H Lymphocytes % (20.5 - 51.1 %) 7.3 L Monocytes % (1.7 - 9.3 %) 7.4 Eosinophils % (0 - 5 %) 1.7 Basophils % (0.0 - 2.0 %) 0.2 Absolute Granulocytes (1.4 - 6.5 /CUMM) 5.4 Absolute Lymphocytes (1.2 - 3.4 /CUMM) 0.5 L Absolute Monocytes (0.10 - 0.60 /CUMM) 0.5 Absolute Eosinophils (0.0 - 0.7 /CUMM) 0.1 Absolute Basophils (0.0 - 0.2 /CUMM) 0 Urines Ur Random Creatinine Cancelled U Random Total Protein Cancelled Urine Total Volume Cancelled Ur Total Protein 24 Hr Cancelled 12/29 12/29 8440 1213 Chemistry Sodium (137 - 145 mmol/L) 145 Potassium (3.5 - 5.1 mmol/L) 4.4 Chloride (98 - 107 mmol/L) 107 Carbon Dioxide (22 - 30 mmol/L) 22 Anion Gap (5 - 16) 16 BUN (9 - 20 mg/dL) 50 H Creatinine (0.7 - 1.2 mg/dL) 3.5 H Estimated GFR (>60 ml/min) 18 L Glucose (65 - 99 mg/dL) 93 Calcium (8.4 - 10.2 mg/dL) 8.3 L Phosphorus (2.5 - 4.5 mg/dL) 3.0 Magnesium (1.6 - 2.3 mg/dL) 1.8 Total Bilirubin (0.2 - 1.3 mg/dL) 3.8 H AST (17 - 59 U/L) 62 H ALT (21 - 72 U/L) 133 H C-Reactive Prot, Quant (<1.0 mg/dL) > 9.0 H C-React Prot High Sens (1.0 - 3.0 mg/L) > 15.0 H Albumin (3.5 - 5.0 g/dL) 3.1 L Amylase (30 - 110 U/L) 335 H Lipase (23 - 300 U/L) 3126 H Hematology CBC w Diff NO MAN DIFF REQ WBC (4.8 - 10.8 /CUMM) 10.0 RBC (4.70 - 6.10 /CUMM) 4.15 L Hgb (14.0 - 18.0 G/DL) 11.7 L Hct (42 - 52 %) 35.5 L MCV (80.0 - 94.0 FL) 85.6 MCH (27.0 - 31.0 PG) 28.2 MCHC (33.0 - 37.0 G/DL) 32.9 L RDW (11.5 - 14.5 %) 15.4 H Plt Count (130 - 400 /CUMM) 211 MPV (7.4 - 10.4 FL) 8.4 Gran % (42.2 - 75.2 %) 85.9 H Lymphocytes % (20.5 - 51.1 %) 6.5 L Monocytes % (1.7 - 9.3 %) 6.6 Eosinophils % (0 - 5 %) 1.0 Basophils % (0.0 - 2.0 %) 0 Absolute Granulocytes (1.4 - 6.5 /CUMM) 8.6 H Absolute Lymphocytes (1.2 - 3.4 /CUMM) 0.6 L Absolute Monocytes (0.10 - 0.60 /CUMM) 0.7 H Absolute Eosinophils (0.0 - 0.7 /CUMM) 0.1 Absolute Basophils (0.0 - 0.2 /CUMM) 0 Urines Ur Random Creatinine (mg/dL) 89.7 U Random Total Protein (0 - 12 mg/dL) 69 H Ur Random Sodium (30 - 90 mmol/L) 70 Ur Random Potassium (mmol/L) 26.9 Protein/Creatinin Ratio (< 0.2) 0.7 H Fraction Sodium Excret (<1% %) 1.9 H
--- NOTE | 2017-12-31 14:26 | Transfer of Care Summary ---
Hospital Course Course Hospital Course: Reason for transfer to ICU: Gallstone pancreatitis with Klebsiella bacteremia and cholangitis Hypotension after morphine administration in ED HPI: Interval events in the Floor: A: 57 year old male with a PMH significant for hypertension, hypothyroidism, HLD, diabetes, GERD, that presenting with complaints 1.5 days history of abdominal pain, nausea and vomiting, jaundice, generalized urticaria, malaise most likely 2/2 gallstone pancreatitis with ascending cholangitis and hypotension after morphine administration in the ED: #Gallstone pancreatitis with Klebsiella bacteremia and cholangitis s/p cholecystectomy The patient states that he had 1.5 days of abd, pain N/V, jaundice, and itching before admission. He was found to have mild fever and leukocytosis initially. Initial CT revealed cholelithiasis with dilated common bile duct, perinephric stranding, and borderline enlarged periportal lymph nodes. Initial labs revealed elevated lipase >10k and amylase, total and direct bilirubin, and LFTs. Blood cultures were positive for Klebsiella. Viral hepatitis panel was negative. Initial lactic acidosis resolved with fluids. He was initially started on zosyn and switched to ceftriaxone/metronidazole. ERCP revealed findings consistent of CBD stone which has passed and cholangitis. Pus was also noted from the ERCP and the patient had a cholecystectomy performed. His fevers, leukocytosis, lfts, bilirubin and lipase/amylase improved during admission. He will require follow up with GI and surgery within 2 weeks of discharge. His home medications include atorvastatin and HCTZ are also know to cause pancreatitis. Irbesartan can cause hepatitis. The patient was previously on Trulicity which can cause pancreatitis but was self discontinued. Atorvastatin was recontinued as it was unlikely the cause of his pancreatitis. -BC positive for Klebsiella pneumonia. cont ceftriaxone/metronidazole (day 4/14 for abx) -switch to po ABX based on culturesensitivities. -d/c fluids as pt tolerating clears. -Continue atorvastatin as it was unlikely the cause of his pancreatitis -finished IV PPI x3 days per GI -f/u GI recs: daily lfts. they haved signed off #itching Itching most likely due to bile salt accumulation. -Currently improved with Benadryl cream #CHARLENE on CKD currently improving CKD baseline 1.8 Current Cr 3.5 -> 2.4 Possibly secondary to indomethacin or ketorolac doses vs sepsis Urine lytes revealed elevated total protein, elevated protein to creatinine ratio, and Fena -cont to monitor, encourage po intake -hold nsaids and hctz and irbesartan #Hypotensive episode with history of hypertension Initial BP was 196/88 and dropped to 82-92/50 after administration of morphine. Improved with fluids. Patient currently hypertensive 150s/90s with occasional 190s/80s reading -start patient on amlodipine -cont to monitor, holding irbesartan and hctz #Renal cyst CT revealed 3.3 cm water density cystic lesion at the lower pole left kidney. This is incompletely evaluated without intravenous contrast material. It was not seen on prior ultrasound. -outpatient follow up. Consider follow-up renal protocol CT with and without contrast or MRI with and without contrast for further evaluation #HLD takes atorvastatin at home -restarted artorvastatinas ercp revealed findings more consistent of gallstone pancreaitis. #diabetes Was taking trulicity @ home but stopped due to rash. He no longer takes glipizide. -Continue reduced dose Levemir and novolog sliding scale -Increase his Levemir slowly to home dose after he begins eating (60mg daily at home) #hypothyroidism -cont levothyroxine #atelectasis CXR: Low lung volumes. Bibasilar atelectasis and bronchovascular crowding. Small effusions cannot be entirely excluded. -cont incentive vibha #Housekeeping Clear liquid diet, advance as tolerated FULL CODE DVT prophylaxis - SC heparin NIPPV: Yes/ No (details if Yes) Antibiotics: Ceftriaxone metronidazole Catheters/ IV access: Peripheral Things to follow up (Blood Cx, Imaging, ABG etc...) DVT prophylaxis: SC heparin Consultants: GI - signed off, nephrology, surgery Code status: FULL Family updated: Yes/ No Assessment/Plan: See above
[2017-12-31 15:56] VITALS: BP 130/58
[2017-12-31 22:46] VITALS: BP 126/58
[2018-01-01 06:57] VITALS: BP 153/73
--- NOTE | 2018-01-01 08:23 | PN- Plastic Surgery ---
See Addendum Subjective Subjective: PT IN BED, STILL WITH SOME RUQ PAIN, NO NAUSEA. NOT A GREAT APPETITE. DENEIS CP/SOB. PASSING FLATUS, NO BM. VOIDING, AMBULATING TO BATHROOM DENEIS FEVERS. Objective Vital Signs and I&Os Vital Signs Date Time Temp Pulse Resp B/P B/P Pulse O2 O2 Flow FiO2 Mean Ox Delivery Rate 01/01 0657 98.9 67 20 153/73 99 Nasal 2.0L Cannula 01/01 0600 Nasal 2.0L Cannula 12/31 2246 99.7 75 18 126/58 94 Room Air 12/31 1700 99.2 12/31 1600 Room Air 12/31 1556 100.1 80 18 130/58 92 Room Air 12/31 1405 Room Air Intake & Output 01/01 1600 01/01 0800 01/01 0000 12/31 1600 12/31 0800 12/31 0000 Intake Total 549 218 0000 2171 400 Output Total 660 465 740 540 600 Balance -60 187 482 1138 -200 Intake, IV 500 883 184 9453 400 Intake, Oral 100 50 600 100 0 Number 0 0 Bowel Movements Output, 60 15 40 40 Drainage Output, Urine 600 450 700 500 600 Patient 197 lb Weight Weight Bed scale Measurement Method Physical Exam: GEN- NAD RESP- CLEAR, DECREASED BREATH SOUNDS IN LOWER RIGHT LUNG ELIZABETH CARDIAC- RRR ABD- OBESE, +BS, TENDER IN RUQ. GAMAL IN PLACE WITH SEROUS FLUID WITH SMALL AMOUNT OF CLOTS IN BULB EXT- NO CALF TENDERNESS, MILD PEDAL EDEMA Current Medications: Current Medications Sig/Callie Start time Last Medication Dose Route Stop Time Status Admin Amlodipine Besylate 5 MG DAILY 01/01 09 AC PO Atorvastatin Calcium 40 MG 1700 12/29 1700 AC 12/31 PO 1623 Ceftriaxone Sodium 1,000 MG Q24H 12/29 1245 AC 12/31 IV 1333 Dextrose/Lactated 1,000 ML Q13H 12/31 1200 AC 01/01 Ringer's IV 0723 Dextrose/Lactated 1,000 ML Q13H 12/28 1045 DC 12/31 Ringer's IV 0455 Diphenhydramine HCl 1 BENIGNO Q8P PRN 12/29 0915 AC TOP Heparin Sodium 5,000 UNIT Q8 12/27 2210 AC 01/01 (Porcine) SC 0558 Insulin Detemir 30 UNITS DAILY 01/01 0900 AC SC Insulin Detemir 20 UNITS DAILY 12/29 0900 DC 12/31 SC 1045 Insulin Human Regular 2 UNITS .STK-MED ONE 12/31 1324 DC IV 12/31 1325 Insulin Human Regular 0 Q6 12/27 1850 DC 12/31 SC 1333 Levothyroxine Sodium 0.15 MG DAILY AC 12/29 0700 AC 01/01 PO 0600 Magnesium Oxide 400 MG ONE ONE 12/31 0845 DC 12/31 PO 12/31 0846 1041 Metronidazole 500 MG IQ8 12/29 1600 AC 01/01 N/A 1 UNIT IV 0721 Morphine Sulfate 2 MG Q2P PRN 12/31 0100 AC 12/31 IV 1041 Oxycodone HCl 5 MG Q4 HRS NEEDED PRN 12/31 010 AC 12/31 PO 1332 Oxycodone HCl 10 MG Q4 HRS NEEDED PRN 12/31 0100 AC 01/01 PO 0001 Results Last 48 Hours of Labs: Laboratory Tests 01/01 12/31 12/30 0628 0430 UNK Chemistry Sodium (137 - 145 mmol/L) Pending 144 Cancelled Potassium (3.5 - 5.1 mmol/L) Pending 4.5 Cancelled Chloride (98 - 107 mmol/L) Pending 108 H Cancelled Carbon Dioxide (22 - 30 mmol/L) Pending 21 L Cancelled Anion Gap (5 - 16) Pending 15 Cancelled BUN (9 - 20 mg/dL) Pending 33 H Cancelled Creatinine (0.7 - 1.2 mg/dL) Pending 2.4 H Cancelled Estimated GFR (>60 ml/min) 28 L BUN/Creatinine Ratio Pending Glucose (65 - 99 mg/dL) 132 H Cancelled Calcium (8.4 - 10.2 mg/dL) 8.1 L Cancelled Phosphorus (2.5 - 4.5 mg/dL) 4.1 Cancelled Magnesium (1.6 - 2.3 mg/dL) 1.8 Cancelled Total Bilirubin (0.2 - 1.3 mg/dL) Pending 2.3 H Cancelled Direct Bilirubin (< 0.4 mg/dL) Pending 1.9 H AST (17 - 59 U/L) Pending 63 H Cancelled ALT (21 - 72 U/L) Pending 88 H Cancelled Alkaline Phosphatase (< 127 U/L) Pending 284 H Total Protein (6.3 - 8.2 g/dL) Pending 5.5 L Albumin (3.5 - 5.0 g/dL) Pending 2.7 L Cancelled Amylase Pending Lipase Pending Hematology CBC w Diff Pending NO MAN DIFF REQ WBC (4.8 - 10.8 /CUMM) Pending 7.6 RBC (4.70 - 6.10 /CUMM) Pending 4.18 L Hgb (14.0 - 18.0 G/DL) Pending 11.6 L Hct (42 - 52 %) Pending 35.3 L MCV (80.0 - 94.0 FL) Pending 84.5 MCH (27.0 - 31.0 PG) Pending 27.8 MCHC (33.0 - 37.0 G/DL) Pending 32.9 L RDW (11.5 - 14.5 %) Pending 15.9 H Plt Count (130 - 400 /CUMM) Pending 214 MPV (7.4 - 10.4 FL) Pending 8.1 Gran % (42.2 - 75.2 %) 86.0 H Lymphocytes % (20.5 - 51.1 %) 5.9 L Monocytes % (1.7 - 9.3 %) 7.9 Eosinophils % (0 - 5 %) 0.1 Basophils % (0.0 - 2.0 %) 0.1 Absolute Granulocytes (1.4 - 6.5 /CUMM) 6.5 Absolute Lymphocytes (1.2 - 3.4 /CUMM) 0.4 L Absolute Monocytes (0.10 - 0.60 /CUMM) 0.6 Absolute Eosinophils (0.0 - 0.7 /CUMM) 0 Absolute Basophils (0.0 - 0.2 /CUMM) 0 Assessment/Plan Assessment/Plan 57YO DIABETIC M WITH GS PANCREATITIS, SP ERCP ON 12/28, SP LAP CRIS POD2. KLEBSIELLA BACTEREMIA CURRENTLY ON ROCEPHIN AND FLAGYL. STABLE CONT ABX KEEP GAMAL IN FOR NOW OUTPUT IS STILL HIGH FU AM LABS- LFTS TENDING DOWN CHARLENE/CKD- MANAGED BY MEDICAL TEAM CONT FULL LIQUID DIET TODAY ENCOURAGE AMBULATION AND IS CONT HSQ Core Measures Venous Thromboembolism VTE Risk Factors Acute Medical Illness No Mechanical VTE Prophylaxis d/t N/A MechProphylax Ordered No VTE Pharm Prophylaxis d/t NA PharmProphylax ordered
[2018-01-01 08:27] LABS: ABSOLUTE BASOPHIL COUNT 0 /CUMM (0.0-0.2); ABSOLUTE EOSINOPHIL COUNT 0.1 /CUMM (0.0-0.7); ABSOLUTE GRANULOCYTE CT 6.2 /CUMM (1.4-6.5); ABSOLUTE LYMPH COUNT 0.8 /CUMM (1.2-3.4); BASOPHIL % 0.3 % (0.0-2.0); EOSINOPHIL % 1.2 % (0-5); GRANULOCYTE % 76.1 % (42.2-75.2); HEMATOCRIT 31.4 % (42-52); MEAN CORPUSCULAR HGB 28.2 PG (27.0-31.0); MEAN CORPUSCULAR HGB CONC 33.2 G/DL (33.0-37.0); MEAN CORPUSCULAR VOLUME 84.9 FL (80.0-94.0); MEAN PLATELET VOLUME 7.9 FL (7.4-10.4); PLATELET COUNT 204 /CUMM (130-400); RBC DISTRIBUTION WIDTH 15.9 % (11.5-14.5); WHITE BLOOD CELL COUNT 8.1 /CUMM (4.8-10.8)
--- NOTE | 2018-01-01 10:14 | PN- Housestaff ---
Elizabeth MUÑOZ,Delphine 01/01/18 1014: Subjective Follow-up For: Gallstone pancreatitis Klebsiella bacteremia Ascending cholangitis Status post cholecystectomy Subjective: Patient notes soreness at the surgical site. He states that he has had on and off shortness of breath, last night was on 2 L, not on any home oxygen. He is satting well at 93%. He is afebrile. He denies any chest pain or abdominal pain. He denies nausea, vomiting, diarrhea. His urticaria has resolved. The patient notes that he is not very hungry and has not eaten much on his liquid diet. Does note some edema of his lower extremities more so on the right than the left. Review of Systems Constitutional: Reports: no symptoms. Objective Last 24 Hrs of Vital Signs/I&O Vital Signs Date Time Temp Pulse Resp B/P B/P Pulse O2 O2 Flow FiO2 Mean Ox Delivery Rate 01/01 0859 67 153/73 01/01 0800 93 Room Air Room Air 01/01 0657 98.9 67 20 153/73 99 Nasal 2.0L Cannula 01/01 0600 Nasal 2.0L Cannula 12/31 2246 99.7 75 18 126/58 94 Room Air 12/31 1700 99.2 12/31 1600 Room Air 12/31 1556 100.1 80 18 130/58 92 Room Air 12/31 1405 Room Air Intake & Output 01/01 1600 01/01 0800 01/01 0000 Intake Total 600 575 Output Total 680 465 Balance -80 110 Intake, IV 500 525 Intake, Oral 100 50 Output, 80 15 Drainage Output, Urine 600 450 Patient 197 lb Weight Weight Bed scale Measurement Method Physical Exam General Appearance: Alert, Oriented X3, Cooperative, No Acute Distress Skin: No Rashes, No Breakdown, clean surgical site Skin Temp/Moisture Exam: Warm/Dry Sepsis Skin Exam (color): Normal for Ethnicity HEENT: Atraumatic, EOMI, Mucous Membr. moist/pink Neck: Supple, No JVD Cardiovascular: Regular Rate, Normal S1, Normal S2, No Murmurs Lungs: Clear to Auscultation, Normal Air Movement Abdomen: Normal Bowel Sounds, Soft, No Masses Neurological: Normal Speech Extremities: No Clubbing, No Cyanosis, Normal Pulses Vascular: Normal Pulses, Pulses Symmetrical Current Medications: Current Medications Sig/Callie Start time Last Medication Dose Route Stop Time Status Admin Amlodipine Besylate 5 MG DAILY 01/01 0900 AC 01/01 PO 0859 Atorvastatin Calcium 40 MG 1700 12/29 1700 AC 12/31 PO 1623 Ceftriaxone Sodium 1,000 MG Q24H 12/29 1245 AC 01/01 IV 1309 Dextrose/Lactated 1,000 ML Q13H 12/31 1200 AC 01/01 Ringer's IV 0723 Diphenhydramine HCl 1 BENIGNO Q8P PRN 12/29 0915 AC TOP Docusate Sodium 100 MG BID 01/01 0900 AC 01/01 PO 0859 Heparin Sodium 5,000 UNIT Q8 12/27 2210 AC 01/01 (Porcine) SC 1309 Insulin Detemir 30 UNITS DAILY 01/01 0900 AC 01/01 SC 0859 Insulin Human Regular 2 UNITS .STK-MED ONE 12/31 1324 DC IV 12/31 1325 Insulin Human Regular 0 Q6 12/27 1850 DC 12/31 SC 1333 Levothyroxine Sodium 0.15 MG DAILY AC 12/29 0700 AC 01/01 PO 0600 Metronidazole 500 MG IQ8 12/29 1600 AC 01/01 N/A 1 UNIT IV 0721 Morphine Sulfate 2 MG Q2P PRN 12/31 0100 AC 12/31 IV 1041 Oxycodone HCl 5 MG Q4 HRS NEEDED PRN 12/31 0100 AC 12/31 PO 1332 Oxycodone HCl 10 MG Q4 HRS NEEDED PRN 12/31 0100 AC 01/01 PO 1053 Pantoprazole Sodium 40 MG DAILY 01/02 09 AC IV 01/04 0901 Polyethylene Glycol 17 GM DAILY 01/01 0900 AC 01/01 PO 1050 Last 24 Hrs of Lab/Zurdo Results Last 24 Hrs of Labs/Mics: Laboratory Tests 01/01/18 0628: Anion Gap 8, Estimated GFR 33 L, BUN/Creatinine Ratio 12.9, Total Bilirubin 1.4 H, Direct Bilirubin 1.1 H, AST 46, ALT 69, Alkaline Phosphatase 255 H, Total Protein 4.9 L, Albumin 2.4 L, Amylase < 30 L, Lipase 272, CBC w Diff NO MAN DIFF REQ, RBC 3.70 L, MCV 84.9, MCH 28.2, MCHC 33.2, RDW 15.9 H, MPV 7.9, Gran % 76.1 H, Lymphocytes % 10.4 L, Monocytes % 12.0 H, Eosinophils % 1.2, Basophils % 0.3, Absolute Granulocytes 6.2, Absolute Lymphocytes 0.8 L, Absolute Monocytes 1.0 H, Absolute Eosinophils 0.1, Absolute Basophils 0 Assessment/Plan Assessment: 57 year old male with a PMH significant for hypertension, hypothyroidism, HLD, diabetes, GERD, that presenting with complaints 1.5 days history of abdominal pain, nausea and vomiting, jaundice, generalized urticaria, malaise most likely 2/2 gallstone pancreatitis with ascending cholangitis and hypotension after morphine administration in the ED: #Gallstone pancreatitis with Klebsiella bacteremia and cholangitis s/p cholecystectomy The patient states that he has had 1.5 days of abd, pain, N/V, jaundice, and itching before admission. He was given IV NS, Zofran, morphine, & Toradol in the ER. Initial CT: Cholelithiasis with no acute cholecystitis, CBD measures 1 cm in diameter, mildly dilated, bilateral perinephric stranding, borderline enlarged periportal lymph nodes. Patient had ERCP done which revealed findings consistent of CBD stone which has passed and cholangitis. Initial lactic acidosis resolved with fluids, normal triglycerides and cholesterol but low HDL Hepatits viral panel negative Liver function enzymes continued to drop as does amylase and lipase His home medications include atorvastatin and HCTZ are also know to cause pancreatitis, irbesartan can cause hepatitis. The patient was previously on Trulicity which can cause pancreatitis but was self discontinued a week ago due to rash. -BC positive for Klebsiella pneumonia. cont ceftriaxone/metronidazole (day 5/14 for abx) -can change to PO augmentin as per sensitivities tomorrow -advance diet per surgery- patient is now on full liquid diet and we will not advance as he still has a low appetite and wants to "go slow". -Continue atorvastatin as it was unlikely the cause of his pancreatitis -cont LR IVF -finished IV PPI x3 days per GI -f/u GI recs: daily lfts. they haved signed off -will require surgery follow up in 2 weeks #itching -itching most likely due to bile salt accumulation. -Currently improved with Benadryl cream #CHARLENE CKD baseline 1.8 Current Cr 3.5-2.1 today, tolerating Possibly secondary to indomethacin or ketorolac doses vs sepsis Urine lytes revealed elevated total protein, elevated protein to creatinine ratio, and Fena -cont to monitor, encourage po intake -hold nsaids and hctz and irbesartan #Hypotensive episode with history of hypertension Initial BP was 196/88 and dropped to 82-92/50 after administration of morphine. Improved with fluids. Patient currently hypertensive 150s/90s with occasional 190s/80s reading -Continue amlodipine -cont to monitor, holding irbesartan and hctz #Renal cyst Initial CT revealed 3.3 cm water density cystic lesion at the lower pole left kidney. This is incompletely evaluated without intravenous contrast material. It was not seen on prior ultrasound. - Consider follow-up renal protocol CT with and without contrast or MRI with and without contrast for further evaluation #Lower extremity edema and wounds: Patient has faint pulses, moreso on the right side, as well as decreased sensation until the mid calf but good motor ability in the lower extremities -Vascular surgery consult -ultrasound dopplers bilaterally -patient does have old pedal wound from prior surgery that appears stable #HLD takes atorvastatin at home -restarted artorvastatin.as ercp revealed findings more consistent of gallstone pancreaitis. #diabetes Was taking trulicity @ home but stopped due to rash. He no longer takes glipizide -Continue reduced dose Levemir and novolog sliding scale -Increase his Levemir slowly to home dose after he begins eating (60u daily at home) #hypothyroidism -cont levothyroxine #atelectasis CXR: Low lung volumes. Bibasilar atelectasis and bronchovascular crowding. Small effusions cannot be entirely excluded. -cont incentive vibha Clear liquid diet, advance as tolerated FULL CODE DVT prophylaxis - SC heparin Problem List: 1. Hypertension 2. CHARLENE (acute kidney injury) 3. Gram-negative bacteremia 4. Cholangitis 5. Gallstone pancreatitis Pain Ratin Pain Location: surgical site Pain Goal: Pain 4 or less Pain Plan: pathway Tomorrow's Labs & Rationales: Jerry Acosta 01/01/18 1418: Attending MD Review Statement Attending Statement Attending MD Statement: examined this patient, discuss w/resident/PA/MICROGRINDER OPERATOR, agreed w/resident/PA/MICROGRINDER OPERATOR, discussed with family, reviewed EMR data (avail), discussed with nursing Attending Assessment/Plan: Gallstone pancreatitis s/p cholecystectomy and acute cholangitis with blood culture growing klebsiella. Cont abx for now. Still has drain post surgery. Passing flatus. Some discoloration of big toes both feet - pt has erectile dysfunction too. will get vascular surgeryt to evaluate on tuesday. CHARLENE on CKD- cr better at 2.1. cont to monitor closely. d/w pt and pts family at bedside the care plan.
[2018-01-01 14:32] VITALS: BP 138/70
--- NOTE | 2018-01-01 15:47 | ULTRASOUND REPORT ---
EXAMINATION: US TRIPLEX LOWER EXTREMITY, LEFT CLINICAL INFORMATION: Left lower extremity edema, swelling. COMPARISON: None TECHNIQUE: Color-flow triplex imaging with spectral analysis and compression Doppler were performed on the lower extremity. FINDINGS: Respiratory variation, normal compression and augmented flow are noted throughout the lower extremity. The visualized common femoral vein, superficial femoral vein, profunda femoral vein, popliteal vein and midcalf peroneal and posterior tibial venous segments show no evidence of deep venous thrombosis. There is no Felix's cyst. IMPRESSION: No evidence of deep venous thrombosis involving the lower extremity.
[2018-01-01 21:53] VITALS: BP 120/70; BP 128/66
[2018-01-02 06:27] VITALS: BP 139/73
--- NOTE | 2018-01-02 08:00 | PN- Housestaff ---
Subjective Follow-up For: Gallstone pancreatitis Klebsiella bacteremia Ascending cholangitis Status post cholecystectomy Subjective: Patient states that he feels "good". Has minor pain at the surgical site. Patient continues to sat on 2 L of nasal cannula, this morning at 91%, we were successful in taking him off oxygen with a saturation of 95% on room air. Patient vital signs are stable. Patient continues to have swelling in his bilateral lower extremities, unchanged from yesterday. Doppler ultrasound of the left lower leg showed no DVT. The patient has continued to have a low appetite but is asking for crackers. We will advance his diet today. The patient have the drain removed today from his cholecystectomy. Review of Systems Constitutional: Reports: no symptoms. EENTM: Reports: no symptoms. Cardiovascular: Reports: peripheral edema. Respiratory: Reports: no symptoms. Gastrointestinal: Reports: abdominal pain. Genitourinary: Reports: no symptoms. Musculoskeletal: Reports: no symptoms. Skin: Reports: no symptoms. Neurological/Psychological: Reports: no symptoms. Objective Last 24 Hrs of Vital Signs/I&O Vital Signs Date Time Temp Pulse Resp B/P B/P Pulse O2 O2 Flow FiO2 Mean Ox Delivery Rate 01/02 1459 98.0 78 18 138/64 95 Room Air 01/02 0841 72 139/73 01/02 0627 97.9 72 18 139/73 91 Nasal 2.0L Cannula 01/01 2153 98.8 73 20 128/66 93 Nasal 2.0L Cannula Intake & Output 01/02 1600 01/02 0800 01/02 0000 Intake Total 1150 600 625 Output Total 600 450 Balance 550 600 175 Intake, IV 150 600 525 Intake, Oral 1000 100 Number 1 Bowel Movements Output, Urine 600 450 Patient 305 lb Weight Physical Exam General Appearance: Alert, Oriented X3, Cooperative, No Acute Distress Skin: No Rashes, No Breakdown, No Significant Lesion Skin Temp/Moisture Exam: Warm/Dry Sepsis Skin Exam (color): Normal for Ethnicity Cardiovascular: Regular Rate, Normal S1, Normal S2, No Murmurs Lungs: Clear to Auscultation, Normal Air Movement Abdomen: Normal Bowel Sounds, Soft, No Hepatospenomegaly, minor surgical site tenderness on palpation Neurological: Normal Gait, Normal Speech Extremities: No Clubbing, No Cyanosis, Normal Pulses, patient has lower extremity edema bilaterally, nonpitting, no sensation from mid calf downward. Vascular: Normal Pulses, Pulses Symmetrical Sepsis Peripheral Pulse Location: Radial Current Medications: Current Medications Sig/Callie Start time Last Medication Dose Route Stop Time Status Admin Amlodipine Besylate 5 MG DAILY 01/01 0900 AC 01/02 PO 0841 Atorvastatin Calcium 40 MG 1700 12/29 1700 AC 01/01 PO 1639 Ceftriaxone Sodium 1,000 MG Q24H 12/29 1245 AC 01/02 IV 1313 Dextrose/Lactated 1,000 ML Q13H 12/31 1200 DC 01/01 Ringer's IV 2323 Diphenhydramine HCl 1 BENIGNO Q8P PRN 12/29 0915 AC TOP Docusate Sodium 100 MG BID 01/01 0900 AC 01/02 PO 0841 Furosemide 20 MG 0945 01/02 0945 DC 01/02 IV 01/02 0946 1104 Heparin Sodium 5,000 UNIT Q8 12/27 2210 AC 01/02 (Porcine) SC 1314 Insulin Detemir 30 UNITS DAILY 01/01 0900 AC 01/02 SC 0841 Levothyroxine Sodium 0.15 MG DAILY AC 12/29 0700 AC 01/02 PO 0620 Metronidazole 500 MG IQ8 12/29 1600 AC 01/02 N/A 1 UNIT IV 0736 Morphine Sulfate 2 MG Q2P PRN 12/31 0100 AC 12/31 IV 1041 Oxycodone HCl 5 MG Q4 HRS NEEDED PRN 12/31 0100 AC 12/31 PO 1332 Oxycodone HCl 10 MG Q4 HRS NEEDED PRN 12/31 0100 AC 01/01 PO 2203 Patient Medication 1 ED ONE ONE 01/02 1400 DC Teaching ED 01/02 1401 Polyethylene Glycol 34 GM DAILY 01/03 0900 DC PO Polyethylene Glycol 17 GM BID 01/02 2100 AC PO Polyethylene Glycol 17 GM DAILY 01/01 0900 DC 01/02 PO 0840 Last 24 Hrs of Lab/Zurdo Results Last 24 Hrs of Labs/Mics: Laboratory Tests 01/02/18 0741: Anion Gap 11, Estimated GFR 39 L, BUN/Creatinine Ratio 11.7 Assessment/Plan Assessment: 57 year old male with a PMH significant for hypertension, hypothyroidism, HLD, diabetes, GERD, that presenting with complaints 1.5 days history of abdominal pain, nausea and vomiting, jaundice, generalized urticaria, malaise most likely 2/2 gallstone pancreatitis with ascending cholangitis and hypotension after morphine administration in the ED: #Gallstone pancreatitis with Klebsiella bacteremia and cholangitis s/p cholecystectomy The patient states that he has had 1.5 days of abd, pain, N/V, jaundice, and itching before admission. He was given IV NS, Zofran, morphine, & Toradol in the ER and while this helped the pain it dropped his BP. Initial CT: Cholelithiasis with no acute cholecystitis, CBD measures 1 cm in diameter, mildly dilated, bilateral perinephric stranding, borderline enlarged periportal lymph nodes. Patient had ERCP done which revealed findings consistent of CBD stone which has passed and cholangitis. Initial lactic acidosis resolved with fluids, normal triglycerides and cholesterol but low HDL. Hepatits viral panel negative. Liver function enzymes continued to drop as does amylase and lipase. His home medications include atorvastatin and HCTZ are also know to cause pancreatitis, irbesartan can cause hepatitis. The patient was previously on Trulicity which can cause pancreatitis but was self discontinued a week ago due to rash. Patient is status post laparoscopic cholecystectomy. All LFTs are decreasing. -BC positive for Klebsiella pneumonia. cont ceftriaxone/metronidazole (day 6/14 for abx) -Switched to by mouth Augmentin 875 mg twice a day for total course of 14 days of treatment. -We will advance patient's diet today to regular, low fat, DASH diet for discharge -Continue atorvastatin as it was unlikely the cause of his pancreatitis -stopped fluids -finished IV PPI x3 days per GI -Patient will follow up with with Horacio Sparks MD, crown perforator operator -will require surgery follow up in [address] Wray. Drain is out today. #CHARLENE CKD baseline 1.6 Current creatinine today is 1.8 Possibly secondary to indomethacin or ketorolac doses vs sepsis, probably an element of diabetic kidney disease as per nephrology Urine lytes revealed elevated total protein, elevated protein to creatinine ratio, and Fena. Glucose negative -cont to monitor, encourage po intake -As patient's kidney status is improved, we will restart hydrochlorothiazide and irbesartan outpatient. We will tell the patient to continue to avoid NSAIDs at the time being for pain. The patient has not required any pain medications in the past day. -Patient will follow up with [facility] in 1 week to follow his creatinine level. #Hypotensive episode with history of hypertension Initial BP was 196/88 and dropped to 82-92/50 after administration of morphine. Improved with fluids. Patient currently at blood pressure 139/73 -On discharge, we will continue the irbesartan and hydrochlorothiazide and discontinue the amlodipine that he received here. He will follow up with his PCP. #Renal cyst Initial CT revealed 3.3 cm water density cystic lesion at the lower pole left kidney. This is incompletely evaluated without intravenous contrast material. It was not seen on prior ultrasound. - Consider follow-up renal protocol CT with and without contrast or MRI with and without contrast for further evaluation -He will follow up with nephrology outpatient. #Lower extremity edema and wounds: Patient has faint pulses, moreso on the left side, as well as decreased sensation until the mid calf but good motor ability in the lower extremities -Vascular surgery referral -Doppler ultrasound venous of the left shows no DVT -patient does have old pedal wound from prior surgery that appears stable -We gave 1 dose of Lasix 20 mg today. #HLD takes atorvastatin at home - Continue [email or web address] ercp revealed findings more consistent of gallstone pancreaitis. #diabetes Was taking trulicity @ home but stopped due to rash. He no longer takes glipizide -Continue reduced dose Levemir and novolog sliding scale -We will discharge him on 30 units of Levemir with instructions to follow-up with his PCP to increase his dose of Levemir as needed back to his original dosing of 60 units daily and Levemir. #hypothyroidism -cont levothyroxine #atelectasis CXR: Low lung volumes. Bibasilar atelectasis and bronchovascular crowding. Small effusions cannot be entirely excluded. -cont incentive vibha, good oxygen saturation today Patient is on low-sodium, low potassium diet, low-fat FULL CODE DVT prophylaxis - SC heparin Problem List: 1. Diabetes 2. Hypertension 3. CHARLENE (acute kidney injury) 4. Gram-negative bacteremia 5. Cholangitis 6. Gallstone pancreatitis Pain Ratin Pain Location: surgical site Pain Goal: Pain 4 or less Pain Plan: very low dose nsaid prn Tomorrow's Labs & Rationales: none but bep in one week
--- NOTE | 2018-01-02 08:08 | Patient Discharge Instructions ---
Discharge Instructions General Discharge Information You were seen/treated for: -klebsiella sepsis secondary to ascending cholangitis -gallstone pancreatitis -CHARLENE on CKD You had these procedures: laproscopic cholecystectomy Watch for these problems: infection of surgical site fever, dizziness, decrease in urination Special Instructions: 1. follow up with pcp in one week 2. follow up with gastroenterology in one week 3. follow up with surgeon Dr. Wray in one week 4. follow up with nephrology in one week 5. take all medications as directed 6. no NSAIDs right now, including aleve, ibuprofen, motrin as per kidney function 7. follow up BEP in one week at [facility] or a lab of your choosing 8. please follow up with vascular surgeon in 1-2 weeks regarding the lower extremity swelling and loss of sensation 9. please take 30 UNITS OF INSULIN LEVEMIR DAILY instead of your normal 60 units. Titrate as needed per your PCP. Diet Continue normal diet: No Recommended Diet: Low Fat, Renal Non Dialysis Activity Full Activity/No Limits: Yes (as tolerated) Acute Coronary Syndrome Inclusion Criteria At DC or during hospital stay patient has or had the following: ACS DIAGNOSIS No Discharge Core Measures Meds if any: Prescribed or Continued at Discharge Meds if any: NOT Prescribed or Continued at Discharge Congestive Heart Failure Inclusion Criteria At DC or during hospital stay patient has or had the following: CHF DIAGNOSIS No Discharge Core Measures Meds if any: Prescribed or Continued at Discharge Meds if any: NOT Prescribed or Continued at Discharge Cerebrovascular accident Inclusion Criteria At DC or during hospital stay patient has or had the following: CVA/TIA Diagnosis No Discharge Core Measures Meds if any: Prescribed or Continued at Discharge Meds if any: NOT Prescribed or Continued at Discharge Venous thromboembolism Inclusion Criteria VTE Diagnosis No VTE Type NONE VTE Confirmed by (Test) NONE Discharge Core Measures - Per Current guidelines, there needs to be overlap - treatment for the first 5 days of Warfarin therapy. - If discharged on Warfarin prior to 5 days of - overlap therapy, the patient will need to be - assessed for post discharge needs including - *Post discharge parental anticoagulation - *Warfarin and/or parental anticoagulation education - *Follow up date to check INR post discharge At least 5 days overlap therapy as Inpatient No Meds if any: Prescribed or Continued at Discharge Note: Overlap Therapy is Warfarin and Anticoagulant Meds if any: NOT Prescribed or Continued at Discharge
--- NOTE | 2018-01-02 11:50 | PN- Att Addend ---
See Addendum Attending Addendum Attending Brief Note Patient seen and examined. Plan of care discussed with the medical team and the patient. Available lab work and radiology test reports were reviewed. Patient feels well and is tolerating oral liquids well. He does not wish to eat solids at this point. He has been ambulating and denies any recent fever chills nausea vomiting or diarrhea. His pain is well controlled. Exam: General: Patient awake alert oriented without any distress CVS: S1 plus S2 without any murmur or gallops Chest: Few scattered crepitation without any wheeze. There is no respiratory distress. Abdomen: Soft non-tender, slightly distended, bowel sound present, mild discomfort over the right upper quadrant area. No guarding or rebound SPORT INTERN: Awake alert oriented without any focal neuro deficit and follows commands appropriately Extremities: No edema; no clubbing or cyanosis noted Assessment * Gallstone pancreatitis * Status post cholecystectomy * Klebsiella bacteremia * Ascending cholangitis * Acute on chronic renal failure with peak creatinine of 3.5 now 1.8, baseline is 1.4 Plan * Advance diet as tolerated * Discontinue IV fluids * Patient can be discharged home today * Follow with surgery and PCP * Increase MiraLAX to twice a day; continue other stool softeners * Continue oxycodone when necessary for pain at home if pain is severe otherwise patient can use oral Tylenol Total time spent in preparation for discharge plan, patient education, and CMR preparation was 35 minutes. Current Medications Sig/Callie Start time Last Medication Dose Route Stop Time Status Admin Amlodipine Besylate 5 MG DAILY 01/01 0900 AC 01/02 PO 0841 Atorvastatin Calcium 40 MG 1700 12/29 1700 AC 01/01 PO 1639 Ceftriaxone Sodium 1,000 MG Q24H 12/29 1245 AC 01/01 IV 1309 Dextrose/Lactated 1,000 ML Q13H 12/31 1200 DC 01/01 Ringer's IV 2323 Diphenhydramine HCl 1 BENIGNO Q8P PRN 12/29 0915 AC TOP Docusate Sodium 100 MG BID 01/01 0900 AC 01/02 PO 0841 Furosemide 20 MG 0945 01/02 0945 DC 01/02 IV 01/02 0946 1104 Heparin Sodium 5,000 UNIT Q8 12/27 2210 AC 01/02 (Porcine) SC 0619 Insulin Detemir 30 UNITS DAILY 01/01 0900 AC 01/02 SC 0841 Levothyroxine Sodium 0.15 MG DAILY AC 12/29 0700 AC 01/02 PO 0620 Metronidazole 500 MG IQ8 12/29 1600 AC 01/02 N/A 1 UNIT IV 0736 Morphine Sulfate 2 MG Q2P PRN 12/31 010 AC 12/31 IV 1041 Oxycodone HCl 5 MG Q4 HRS NEEDED PRN 12/31 010 AC 12/31 PO 1332 Oxycodone HCl 10 MG Q4 HRS NEEDED PRN 12/31 010 AC 01/01 PO 2203 Pantoprazole Sodium 40 MG DAILY 01/02 0900 CAN IV 01/04 0901 Polyethylene Glycol 34 GM DAILY 01/03 09 DC PO Polyethylene Glycol 17 GM BID 01/02 2100 AC PO Polyethylene Glycol 17 GM DAILY 01/01 0900 DC 01/02 PO 0840 Laboratory Tests 01/02/18 0741: Anion Gap 11, Estimated GFR 39 L, BUN/Creatinine Ratio 11.7 01/01/18 0628: Anion Gap 8, Estimated GFR 33 L, BUN/Creatinine Ratio 12.9, Total Bilirubin 1.4 H, Direct Bilirubin 1.1 H, AST 46, ALT 69, Alkaline Phosphatase 255 H, Total Protein 4.9 L, Albumin 2.4 L, Amylase < 30 L, Lipase 272, CBC w Diff NO MAN DIFF REQ, RBC 3.70 L, MCV 84.9, MCH 28.2, MCHC 33.2, RDW 15.9 H, MPV 7.9, Gran % 76.1 H, Lymphocytes % 10.4 L, Monocytes % 12.0 H, Eosinophils % 1.2, Basophils % 0.3, Absolute Granulocytes 6.2, Absolute Lymphocytes 0.8 L, Absolute Monocytes 1.0 H, Absolute Eosinophils 0.1, Absolute Basophils 0 12/31/17 0430: Anion Gap 15, Estimated GFR 28 L, Glucose 132 H, Calcium 8.1 L, Phosphorus 4.1, Magnesium 1.8, Total Bilirubin 2.3 H, Direct Bilirubin 1.9 H, AST 63 H, ALT 88 H, Alkaline Phosphatase 284 H, Total Protein 5.5 L, Albumin 2.7 L, CBC w Diff NO MAN DIFF REQ, RBC 4.18 L, MCV 84.5, MCH 27.8, MCHC 32.9 L, RDW 15.9 H, MPV 8.1, Gran % 86.0 H, Lymphocytes % 5.9 L, Monocytes % 7.9, Eosinophils % 0.1, Basophils % 0.1, Absolute Granulocytes 6.5, Absolute Lymphocytes 0.4 L, Absolute Monocytes 0.6, Absolute Eosinophils 0, Absolute Basophils 0 Vital Signs Date Time Temp Pulse Resp B/P B/P Pulse O2 O2 Flow FiO2 Mean Ox Delivery Rate 01/02 0841 72 139/73 01/02 0627 97.9 72 18 139/73 91 Nasal 2.0L Cannula 01/01 2153 98.8 73 20 128/66 93 Nasal 2.0L Cannula 01/01 1600 Room Air 01/01 1432 98.9 75 18 138/70 93 Intake & Output 01/02 1600 01/02 0800 01/02 0000 Intake Total 600 625 Output Total 450 Balance 600 175 Intake, IV 600 525 Intake, Oral 100 Output, Urine 450 Patient 305 lb Weight
[2018-01-02] MEDS ORDERED: AUGMENTIN 875-1 EACH PO (13:38)
[2018-01-02] MEDS ORDERED: DOCUSATE SODIU100 M3 PO (13:38)
[2018-01-02] MEDS ORDERED: MIRALAX119 GM PO (13:38)
[2018-01-02] MEDS ORDERED: AMLODIPINE BESYL5 M1 PO (14:10)
[2018-01-02] MEDS ORDERED: LEVEMIR100 UNIT/1 SC (14:38)
[2018-01-02 14:59] VITALS: BP 138/64
--- NOTE | 2018-01-02 17:09 | PN- General Surgery ---
Subjective Subjective: Postoperative day 3 Patient sitting up no nausea no vomiting says his urine is normal color now no new abdominal pain drain was removed yesterday no sweats no shortness of breath tolerating diet Objective Vital Signs and I&Os I reviewed Vital Signs Date Time Temp Pulse Resp B/P B/P Pulse O2 O2 Flow FiO2 Mean Ox Delivery Rate 01/02 1459 98.0 78 18 138/64 95 Room Air 01/02 0841 72 139/73 01/02 0627 97.9 72 18 139/73 91 Nasal 2.0L Cannula 01/01 2153 98.8 73 20 128/66 93 Nasal 2.0L Cannula I reviewed Intake & Output 01/02 1600 01/02 0800 01/02 0000 01/01 1600 01/01 0800 01/01 0000 Intake Total 1150 875 646 9367 600 575 Output Total 600 450 550 680 465 Balance 550 600 175 850 -80 110 Intake, IV 150 600 525 600 500 525 Intake, Oral 1000 100 800 100 50 Number 1 Bowel Movements Output, 80 15 Drainage Output, Urine 600 450 550 600 450 Patient 305 lb 197 lb Weight Weight Bed scale Measurement Method Physical Exam: Constitutional: no acute distress no pain Eyes: sclera anicteric ENMT: moist mucous membranes Cardiovascular: S1-S2 no murmurs no peripheral edema Respiratory: clear to auscultation with normal respiratory effort and no intercostal retractions GI: abdomen soft nontender nondistended dressings intact dry Extremities / lymphatics: free range of motion no peripheral edema Skin: no jaundice no rashes warm, nondiaphoretic Psychiatric: mood and affect are appropriate and alert and oriented to person place and time Current Medications: I reviewed Current Medications Sig/Callie Start time Last Medication Dose Route Stop Time Status Admin Amlodipine Besylate 5 MG DAILY 01/01 0900 DCD 01/02 PO 0841 Atorvastatin Calcium 40 MG 1700 12/29 1700 DCD 01/01 PO 1639 Ceftriaxone Sodium 1,000 MG Q24H 12/29 1245 DCD 01/02 IV 1313 Dextrose/Lactated 1,000 ML Q13H 12/31 1200 DC 01/01 Ringer's IV 2323 Diphenhydramine HCl 1 BENIGNO Q8P PRN 12/29 0915 DCD TOP Docusate Sodium 100 MG BID 01/01 0900 DCD 01/02 PO 0841 Furosemide 20 MG 0945 01/02 0945 DC 01/02 IV 01/02 0946 1104 Heparin Sodium 5,000 UNIT Q8 12/27 2210 DCD 01/02 (Porcine) SC 1314 Insulin Detemir 30 UNITS DAILY 01/01 09 DCD 01/02 SC 0841 Levothyroxine Sodium 0.15 MG DAILY AC 12/29 0700 DCD 01/02 PO 0620 Metronidazole 500 MG IQ8 12/29 1600 DCD 01/02 N/A 1 UNIT IV 0736 Morphine Sulfate 2 MG Q2P PRN 12/31 0100 DCD 12/31 IV 1041 Oxycodone HCl 5 MG Q4 HRS NEEDED PRN 12/31 0100 DCD 12/31 PO 1332 Oxycodone HCl 10 MG Q4 HRS NEEDED PRN 12/31 0100 DCD 01/01 PO 2203 Patient Medication 1 ED ONE ONE 01/02 1400 DC Teaching ED 01/02 1401 Polyethylene Glycol 34 GM DAILY 01/03 0900 DC PO Polyethylene Glycol 17 GM BID 01/02 2100 DCD PO Polyethylene Glycol 17 GM DAILY 01/01 0900 DC 01/02 PO 0840 Results Last 48 Hours of Labs: I reviewed Laboratory Tests 01/02 01/01 0741 0628 Chemistry Sodium (137 - 145 mmol/L) 141 138 Potassium (3.5 - 5.1 mmol/L) 4.4 4.2 Chloride (98 - 107 mmol/L) 105 106 Carbon Dioxide (22 - 30 mmol/L) 25 24 Anion Gap (5 - 16) 11 8 BUN (9 - 20 mg/dL) 21 H 27 H Creatinine (0.7 - 1.2 mg/dL) 1.8 H 2.1 H Estimated GFR (>60 ml/min) 39 L 33 L BUN/Creatinine Ratio (7 - 25 %) 11.7 12.9 Total Bilirubin (0.2 - 1.3 mg/dL) 1.4 H Direct Bilirubin (< 0.4 mg/dL) 1.1 H AST (17 - 59 U/L) 46 ALT (21 - 72 U/L) 69 Alkaline Phosphatase (< 127 U/L) 255 H Total Protein (6.3 - 8.2 g/dL) 4.9 L Albumin (3.5 - 5.0 g/dL) 2.4 L Amylase (30 - 110 U/L) < 30 L Lipase (23 - 300 U/L) 272 Hematology CBC w Diff NO MAN DIFF REQ WBC (4.8 - 10.8 /CUMM) 8.1 RBC (4.70 - 6.10 /CUMM) 3.70 L Hgb (14.0 - 18.0 G/DL) 10.4 L Hct (42 - 52 %) 31.4 L MCV (80.0 - 94.0 FL) 84.9 MCH (27.0 - 31.0 PG) 28.2 MCHC (33.0 - 37.0 G/DL) 33.2 RDW (11.5 - 14.5 %) 15.9 H Plt Count (130 - 400 /CUMM) 204 MPV (7.4 - 10.4 FL) 7.9 Gran % (42.2 - 75.2 %) 76.1 H Lymphocytes % (20.5 - 51.1 %) 10.4 L Monocytes % (1.7 - 9.3 %) 12.0 H Eosinophils % (0 - 5 %) 1.2 Basophils % (0.0 - 2.0 %) 0.3 Absolute Granulocytes (1.4 - 6.5 /CUMM) 6.2 Absolute Lymphocytes (1.2 - 3.4 /CUMM) 0.8 L Absolute Monocytes (0.10 - 0.60 /CUMM) 1.0 H Absolute Eosinophils (0.0 - 0.7 /CUMM) 0.1 Absolute Basophils (0.0 - 0.2 /CUMM) 0 Assessment/Plan Assessment/Plan Impression is patient doing well LFTs are trending towards normal no signs of obstruction or worsening infection, he can be discharged from a surgical perspective but I told him to watch carefully for signs of recurrent symptoms which he is aware of. Core Measures Venous Thromboembolism VTE Risk Factors Acute Medical Illness No Mechanical VTE Prophylaxis d/t N/A MechProphylax Ordered No VTE Pharm Prophylaxis d/t NA PharmProphylax ordered
--- NOTE | 2018-01-02 17:38 | Operative Report ---
Operative/Inv Procedure Report Surgery Date: 12/30/17 Name of Procedure: Laparoscopic cholecystectomy, increased work and difficulty secondary to body habitus, degree of inflammation and unusual anatomy in the triangle of [place] Pre-Operative Diagnosis: Cholecystitis, cholangitis, gallstone pancreatitis Post-Operative Diagnosis: Same Estimated Blood Loss: less than 50ml Surgeon/Bean Sorter: MD Fidelia Patel Anesthesia: general endotracheal tube Operative/Procedure Note Note: Patient was positioned supine. After successful induction of general anesthesia, the patient's abdomen was clipped, prepped and draped in the usual sterile fashion. Based on his body habitus we aimed an incision in the epigastrium about 10 cm above the umbilicus. Local anesthetic was injected here and then a vertical incision little over a centimeter was made there with a 15 blade and then deepened to the midline fascia which was incised vertically a little over a centimeter. Both sides were secured with 0 Vicryl stay sutures and then the thin peritoneal layer was entered, 10 mm Elena trocar inserted obliquely to the right, and the gas was turned on to 15 mm. After insufflation and repositioning to reverse Trendelenburg, 3 more dissecting 5 mm trochars were placed in the right subcostal area, first lateral, then mid-subcostal, then subxiphoid. The gallbladder, was thickened and quite distended so we first had to decompress it with a large-bore needle was cloudy pale bile in it. Then the fundus was grasped from the lateral port and retracted up but we were limited by the very thick abdominal wall and enlarged liver. We knew from preoperative imaging that he had a wide tortuous elongated cystic duct, it was coiled but it took some time to differentiate intraoperatively, as we tried to maintain lateral retraction of the infundibulum. Visualization was limited because of the body habitus making dissection more tedious. Branches of the cystic artery was encountered first, divided between clips and then eventually the cystic duct was divided at the neck at this point using a 1 cm Weck clips having up-sized the subxiphoid trocar. At this point we were then able to retract the fundus of the gallbladder up over the liver edge and started to dissect the gallbladder up and out of its deep position within the liver there were more branches of the cystic artery he had a dominant posterior branch these were clipped as well the posterior wall was very friable but the stones were accounted for. Also more than jail up off the liver there seemed to be possibly a duct of Luschka which was clipped. Then the gallbladder was completely from the liver bed using cautery then lowered into an Endobag and removed through the main camera trocar incision, without having to enlarge it. The instruments and then the trochars were removed letting the gas escape. The fascial incision was closed with a figure 8 Vicryl then all 4 skin incisions were closed with interrupted subcuticular 4-0 Monocryl, followed by Mastisol Steri-Strips and Bandaids. Estimated blood loss was minimal, lap and sponge counts were correct, wound expectancy was clean-contaminated, IV fluids crystalloid, complications none, patient tolerated the procedure well and was returned to the recovery room in satisfactory condition.
== END 2018-01-02 15:42 | DRG 417 ==
LOC: ERH 10:09 → ERHI 14:50 → CRI 14:50 → ERHI 15:28 → CANRESERV 16:49 → ENRESERV 16:49 → EDBEDREQ 17:44 → ENRESERV 18:06 → ENTRNSPT 18:27 → EDTRNSPT 18:43 → EDTRNSPTSTS 19:10 → EDTRNSPT 19:10 → CRI 19:29 → CMPTRNSPT 19:34 → CRI 12-29 08:17 → ENTRNSPT 12-31 14:17 → 2NB 12-31 15:36 → CMPTRNSPT 12-31 15:49 → 2NB 01-01 14:11 → ENTRNSPT 01-02 15:25 → CMPTRNSPT 01-02 15:36 → 2NB 01-02 15:42
PROVIDERS: Emergency Medicine; Internal Medicine; Physician Assistant; Student in an Organized Health Care Education/Training Program
PROC: 0FJD8ZZ Inspection of Pancreatic Duct, Via Natural or Artificial Opening Endoscopic (ICD-10-PCS; 2017-12-28)
PROC: 0FJB8ZZ Inspection of Hepatobiliary Duct, Via Natural or Artificial Opening Endoscopic (ICD-10-PCS; 2017-12-28)
PROC: BF141ZZ Fluoroscopy of Gallbladder, Bile Ducts and Pancreatic Ducts using Low Osmolar Contrast (ICD-10-PCS; 2017-12-28)
PROC: 0FT44ZZ Resection of Gallbladder, Percutaneous Endoscopic Approach (ICD-10-PCS; principal; 2017-12-30)
DX: K85.10 Biliary acute pancreatitis without necrosis or infection (principal); A41.50 Gram-negative sepsis, unspecified; K83.0 Cholangitis; N17.9 Acute kidney failure, unspecified; Z68.41 Body mass index [BMI] 40.0-44.9, adult; E11.22 Type 2 diabetes mellitus with diabetic chronic kidney disease; N28.1 Cyst of kidney, acquired; E03.9 Hypothyroidism, unspecified; E78.5 Hyperlipidemia, unspecified; K21.9 Gastro-esophageal reflux disease without esophagitis; Z79.82 Long term (current) use of aspirin; Z79.4 Long term (current) use of insulin; L50.9 Urticaria, unspecified; I95.2 Hypotension due to drugs; T40.2X5A Adverse effect of other opioids, initial encounter; Y92.239 Unspecified place in hospital as the place of occurrence of the external cause; E66.9 Obesity, unspecified; K42.9 Umbilical hernia without obstruction or gangrene; I12.9 Hypertensive chronic kidney disease with stage 1 through stage 4 chronic kidney disease, or unspecified chronic kidney disease; N18.9 Chronic kidney disease, unspecified; R74.0 Nonspecific elevation of levels of transaminase and lactic acid dehydrogenase [LDH]
CPT/HCPCS: 2NBSP; 84133; 84300; CCU; 36415; 36592; 71045; 74176; 81001; 82436; 82570; 87040; 87086; 93005; 93010; 96361; 96374; 96375; 99291; C9399; J0131; J0696; J1200; J1644; J1815; J1885; J1940; J2405; J2543; J3490; J7040; J7120; Q9967